=== PATIENT | male | born 1955 | race Caucasian/White ===

== ENCOUNTER 2023-02-10 10:29 | Emergency (ER) | payer MEDICARE ==
[2023-02-10 10:36] VITALS: RESP 18; TEMP 97.1
[2023-02-10] MEDS ORDERED: SODIUM CHLORIDE 0.9% 500 ML 500 ML IV STA (11:05)
[2023-02-10] MEDS ORDERED: FAMOTIDINE 20 MG/2 ML VIAL IV STA (11:06)
--- NOTE | 2023-02-10 11:10 | ED ---
General Adult HPI - General Chief complaint: ENT Stated complaint: ESOPHAGEAL ISSUES/CANNOT SWALLOW Time Seen by Provider: 02/10/23 10:51 Source: patient, RN notes reviewed Mode of arrival: ambulatory Limitations: no limitations - History of Present Illness Initial comments: 67-year-old male presents emergency Department chief complaint of difficulty sw allowing. Patient states that this is not progressive the last 2 weeks. Patient states that he was able eat some ice can but states now he's having difficulty with liquids. Patient states he does not see a current primary care physician has no known health problems. Patient states he does complain of upper abdominal pain denies any chest pain or shortness breath denies fevers or chills denies any dysuria. Patient states that he's never had any issues like this in the past he states initially started after when he got was from hot food states he drank liquids after felt fine. Patient does not remember any food getting stuck he states he occasionally does have to spit up in which it is w mono sputum like - Related Data Allergies Allergy/AdvReac Type Severity Reaction Status Date / Time No Known Allergies Allergy Verified 02/10/23 10:36 Review of Systems ROS Statement: Those systems with pertinent positive or pertinent negative responses have been documented in the HPI. ROS Other: All systems not noted in ROS Statement are negative. Past Medical History Past Medical History: No Reported History History of Any Multi-Drug Resistant Organisms: None Reported Past Surgical History: No Surgical Hx Reported Past Psychological History: No Psychological Hx Reported Smoking Status: Current every day smoker Past Alcohol Use History: Occasional Past Drug Use History: None Reported General Exam Limitations: no limitations General appearance: alert, in no apparent distress Head exam: Present: atraumatic, normocephalic, normal inspection Eye exam: Present: normal appearance, PERRL, EOMI. Absent: scleral icterus, conjunctival injection, periorbital swelling ENT exam: Present: normal exam, normal oropharynx, mucous membranes moist Neck exam: Present: normal inspection, full ROM. Absent: tenderness, meningismus, lymphadenopathy Respiratory exam: Present: normal lung sounds bilaterally. Absent: respiratory distress, wheezes, rales, rhonchi, stridor Cardiovascular Exam: Present: normal rhythm, tachycardia, normal heart sounds. Absent: systolic murmur, diastolic murmur, rubs, gallop, clicks GI/Abdominal exam: Present: soft, tenderness, normal bowel sounds. Absent: distended, guarding, rebound, rigid Back exam: Absent: CVA tenderness (R), CVA tenderness (L) Neurological exam: Present: alert Course Vital Signs 02/10/23 02/10/23 10:30 12:55 Temperature 97.1 F L Pulse Rate 109 H 87 Respiratory 18 18 Rate Blood Pressure 116/78 137/94 O2 Sat by Pulse 98 99 Oximetry - Reevaluation(s) Reevaluation #1: 02/10/23 13:45 Patient reevaluated and updated on results. Patient unable to swallow liquids currently. Patient attempted to swallow liquids, spit up immediately after Medical Decision Making - Medical Decision Making Was pt. sent in by a medical professional or institution (, PA, CAT DRIVER, urgent care, hospital, or halfway...) When possible be specific @ -No Did you speak to anyone other than the patient for history (EMS, parent, family, police, friend...)? What history was obtained from this source @ -No Did you review nursing and triage notes (agree or disagree)? Why? @ -I reviewed and agree with nursing and triage notes Were old charts reviewed (outside hosp., previous admission, EMS record, old EKG, old radiological studies, urgent care reports/EKG's, halfway records)? Report findings @ -No old charts were reviewed Differential Diagnosis (chest pain, altered mental status, abdominal pain women, abdominal pain men, vaginal bleeding, weakness, fever, dyspnea, syncope, headache, dizziness, GI bleed, back pain, seizure, CVA, palpatations, mental health, musculoskeletal)? @ -Esophagitis, esophageal cancer, esophageal food bolus, epiglottitis EKG interpreted by me (3pts min.). @ -None X-rays interpreted by me (1pt min.). @ -X-ray soft tissue neck shows possible irregularity of the epiglottis Chest x-ray shows no acute process CT interpreted by me (1pt min.). @ -CT neck, chest showing distal esophageal abnormality concerning for malignancy versus esophagitis, enlarged palatine tonsils U/S interpreted by me (1pt. min.). @ -None done What testing was considered but not performed or refused? (CT, X-rays, U/S, labs)? Why? @ -None What meds were considered but not given or refused? Why? @ -None Did you discuss the management of the patient with other professionals (professionals i.e. , PA, CAT DRIVER, lab, RT, psych nurse, social services specialist, scheduling specialist, teacher, homicide squad commanding officer, patient case coordinator)? Give summary @ -No Was smoking cessation discussed for >3mins.? @ -No Was critical care preformed (if so, how long)? @ -No Were there social determinants of health that impacted care today? How? (Homelessness, low income, unemployed, alcoholism, drug addiction, transportation, low edu. Level, literacy, decrease access to med. care, correction, rehab)? @ -No Was there de-escalation of care discussed even if they declined (Discuss DNR or withdrawal of care, Hospice)? DNR status @ -No What co-morbidities impacted this encounter? (DM, HTN, Smoking, COPD, CAD, Cancer, CVA, ARF, Chemo, Hep., AIDS, mental health diagnosis, sleep apnea, morbid obesity)? @ -Tobacco use] Was patient admitted / discharged? Hospital course, mention meds given and rout e, prescriptions, significant lab abnormalities, going to OR and other pertinent info. @ -Transferred to [facility] - [place], [place] as patient is unable to swallow liquids or eat food patient has irregularity of distal esophagus requiring GI evaluation for EGD. Undiagnosed new problem with uncertain prognosis? @ -No Drug Therapy requiring intensive monitoring for toxicity (Heparin, Nitro, Insulin, Cardizem)? @ -No Were any procedures done? @ -No Diagnosis/symptom? @ -Esophageal abnormality, esophagitis, inability to swallow Acute, or Chronic, or Acute on Chronic? @ -Acute Uncomplicated (without systemic symptoms) or Complicated (systemic symptoms)? @ -Uncomplicated Side effects of treatment? @ -No Exacerbation, Progression, or Severe Exacerbation? @ -No Poses a threat to life or bodily function? How? (Chest pain, USA, MA, pneumonia, PE, COPD, DKA, ARF, appy, cholecystitis, CVA, Diverticulitis, Homicidal, Suicidal, threat to staff... and all critical care pts) @ -No - Lab Data Result diagrams: 02/10/23 11:19 02/10/23 11:19 Lab Results 02/10/23 02/10/23 02/10/23 Range/Units 11:19 11:19 11:19 WBC 10.1 (3.8-10.6) k/uL RBC 5.80 (4.30-5.90) m/uL Hgb 18.9 H (13.0-17.5) gm/dL Hct 55.0 H (39.0-53.0) % MCV 95.0 (80.0-100.0) fL MCH 32.6 (25.0-35.0) pg MCHC 34.3 (31.0-37.0) g/dL RDW 12.9 (11.5-15.5) % Plt Count 303 (150-450) k/uL MPV 8.8 Neutrophils % 63 % Lymphocytes % 26 % Monocytes % 7 % Eosinophils % 2 % Basophils % 0 % Neutrophils # 6.4 (1.3-7.7) k/uL Lymphocytes # 2.7 (1.0-4.8) k/uL Monocytes # 0.7 (0-1.0) k/uL Eosinophils # 0.2 (0-0.7) k/uL Basophils # 0.0 (0-0.2) k/uL PT 11.0 (9.0-12.0) sec INR 1.1 (<1.2) APTT 26.7 (22.0-30.0) sec Sodium 140 (137-145) mmol/L Potassium 4.6 (3.5-5.1) mmol/L Chloride 105 (98-107) mmol/L Carbon Dioxide 23 (22-30) mmol/L Anion Gap 12 mmol/L BUN 17 (9-20) mg/dL Creatinine 0.86 (0.66-1.25) mg/dL Est GFR (CKD-EPI)AfAm >90 (>60 ml/min/1.73 sqM) Est GFR (CKD-EPI)NonAf 89 (>60 ml/min/1.73 sqM) Glucose 130 H (74-99) mg/dL Calcium 9.6 (8.4-10.2) mg/dL Magnesium 2.3 (1.6-2.3) mg/dL Total Bilirubin 0.8 (0.2-1.3) mg/dL AST 21 (17-59) U/L ALT 24 (4-49) U/L Alkaline Phosphatase 89 (38-126) U/L Total Protein 7.9 (6.3-8.2) g/dL Albumin 4.3 (3.5-5.0) g/dL Lipase 131 (23-300) U/L Disposition Clinical Impression: Inability to swallow, Esophageal abnormality Disposition: OTHER INSTITUTION NOT DEFINED Condition: Fair Referrals: Ruthann Peralta MD [Primary Care Provider] - 1-2 days Time of Disposition: 13:46 - Out of Hospital Transfer - Req. Specs Out of Hospital Transfer - Requested Specifics: Other Emergency Center ([facility] [place]
[2023-02-10 11:32] LABS: Basophils % (A) 0 %; Eosinophils # (A) 0.2 k/uL (0-0.7); Eosinophils % (A) 2 %; HGB 18.9 gm/dL (13.0-17.5); Lymphocytes # (A) 2.7 k/uL (1.0-4.8); Lymphocytes % (A) 26 %; MCH 32.6 pg (25.0-35.0); MCHC 34.3 g/dL (31.0-37.0); Mean Platelet Volume 8.8; Monocytes # (A) 0.7 k/uL (0-1.0); Monocytes % (A) 7 %; Neutrophils # (A) 6.4 k/uL (1.3-7.7); Neutrophils % (A) 63 %; Platelet Count 303 k/uL (150-450); RDW 12.9 % (11.5-15.5); WBC 10.1 k/uL (3.8-10.6)
[2023-02-10 11:41] LABS: ALT 24 U/L (4-49); AST 21 U/L (17-59); African American GFR (CKD) >90 (>60 ml/min/1.73 sqM); Albumin 4.3 g/dL (3.5-5.0); Alkaline Phosphatase 89 U/L (38-126); Anion Gap 12 mmol/L; Blood Urea Nitrogen 17 mg/dL (9-20); Calcium 9.6 mg/dL (8.4-10.2); Carbon Dioxide 23 mmol/L (22-30); Chloride 105 mmol/L (98-107); Glucose 130 mg/dL (74-99); INR 1.1 (<1.2); Lipase 131 U/L (23-300); Magnesium 2.3 mg/dL (1.6-2.3); Non-African American GFR(CKD) 89 (>60 ml/min/1.73 sqM); Partial Thromboplastin Time 26.7 sec (22.0-30.0); Potassium 4.6 mmol/L (3.5-5.1); Sodium 140 mmol/L (137-145); Total Bilirubin 0.8 mg/dL (0.2-1.3); Total Protein 7.9 g/dL (6.3-8.2)
--- NOTE | 2023-02-10 11:57 | XR ---
EXAMINATION TYPE: XR 2 views soft tissue neck, XR chest 2V DATE OF EXAM: 02/10/2023 COMPARISON: None HISTORY: 67-year-old male difficulty swallowing FINDINGS: Neck: No predental space widening or prevertebral soft tissue swelling. Slight thickened appearance t o the epiglottis is likely projectional. Correlate with direct inspection to ensure that this is due to oblique orientation. No abnormal narrowing of the subglottic airway. No airway compromise. CHEST: Heart normal size. Aorta and pulmonary vasculature within normal limits. Mild central peribronchial c uffing and interstitial prominence. No consolidation or pleural effusion. Right upper quadrant cholec ystectomy clips. IMPRESSION: 1. Neck: Thickened appearance to the epiglottis. This may be projectional due to oblique positioning. Recommend direct visualization to exclude the possibility of epiglottitis. Otherwise, no subglottic airway narrowing or other specific abnormality seen. 2. Chest: Peribronchial cuffing and interstitial prominence could reflect bronchitis or chronic asthm a. No focal infiltrate seen.
[2023-02-10] MEDS ORDERED: RX INFO: IV CONTRAST WAS GIVEN 1 EACH MISC MISCELLANE PRN (12:09)
[2023-02-10 12:57] VITALS: BP 137/94; PULSE 87
--- NOTE | 2023-02-10 13:15 | CT ---
EXAMINATION TYPE: CT neck chest w con DATE OF EXAM: 02/10/2023 12:55 PM COMPARISON: Soft tissue radiograph 02/10/2023, chest radiograph 02/10/2023 HISTORY: Difficulty swallowing, pain CT DLP: 1179.6 mGycm Automated exposure control for dose reduction was used. CONTRAST: CT scan of the neck and chest is performed following with IV Contrast, patient injected with 100 ml m L of Isovue 300. Axial images are obtained, coronal and sagittal reformatted images are reviewed. FINDINGS: Head: The brain is grossly unremarkable. Mild mucosal thickening of the right sphenoid and left maxil jaymie sinuses. Cerumen within the bilateral external auditory canals. 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 Suprahyoid Neck: The retropharyngeal space is unremarkable. Mild prominence of the bilateral palatine tonsils. Right palatine tonsil is identified. No organized fluid collection. The nasopharynx is unre markable. Epiglottis is unremarkable. Infrahyoid Neck: The larynx, hypopharynx, and supraglottic area are clear and symmetric. Parotid Glands: Unremarkable. Submandibular Glands: Unremarkable. Lymph Nodes: Multiple nonenlarged lymph nodes are identified bilaterally along the anterior and poste rior chains. Vascular Structures: Atherosclerotic calcifications identified of the arterial vasculature. Musculoskeletal: No acute osseous pathology. Degenerative changes of the cervical spine. Thyroid: Unremarkable LUNGS/ PLEURA: No pleural effusion, pneumothorax, focal consolidation. Diffuse patchy reticular opaci ties throughout the lungs. AIRWAY: Patent and unremarkable.. HEART: Size within normal limits. No pericardial effusion. MEDIASTINUM: No evidence of adenopathy. VASCULATURE: No aortic aneurysm. MUSCULOSKELETAL: No acute osseous abnormalities. Mild degenerative changes of the thoracic spine. SOFT TISSUES/LYMPH NODES: Unremarkable. LOWER NECK: No significant findings. UPPER ABDOMEN: Postcholecystectomy changes. Liver is diffusely hypoechoic. Circumferential wall thick ening with surrounding small nodules/collateral vessels involving the distal esophagus. There is some suspected nodularity/collateral vessels within the right upper quadrant however motion degrades eval uation. IMPRESSION: Motion degraded examination. 1. Mild prominence of the bilateral palatine tonsils which could be seen with acute tonsillitis. No o rganized fluid collection. Epiglottis is within normal limits. 2. Diffuse patchy reticular opacities throughout the lungs which could be seen with atypical pneumoni a versus pulmonary edema in the appropriate clinical setting. 3. Circumferential wall thickening of the distal esophagus with small surrounding nodularity/collater al vessels. This may related to reflux/esophagitis however malignancy is not excluded. Consider furth er evaluation with direct visualization. 4. Hepatic steatosis. 5. Suspected nodularity/collateral vessels within the right upper quadrant however the examination is motion degraded. Consider further evaluation with CT abdomen pelvis.
[2023-02-10] MEDS ORDERED: PANTOPRAZOLE 40 MG/10 ML VIAL IVP STA (13:48)
== END 2023-02-10 14:50 | disposition other institution (70) ==
LOC: EC 10:29
DX: R13.10 Dysphagia, unspecified (principal); Q39.9 Congenital malformation of esophagus, unspecified; F17.200 Nicotine dependence, unspecified, uncomplicated
CPT/HCPCS: 36415; 80053; 83690; 83735; 85025; 85610; 85730; 70360; 71046; 70491; 71260; 99285; 96374; 96375; 96361; J3490; C9113; Q9967

== ENCOUNTER 2023-04-16 13:43 | Inpatient (IN) | payer MEDICARE ==
--- NOTE | 2023-04-16 14:24 | ED ---
Abdominal Pain HPI - General Chief Complaint: Abdominal Pain Stated Complaint: weakness, nausea Time Seen by Provider: 04/16/23 14:22 Source: patient, RN notes reviewed, old records reviewed Mode of arrival: ambulatory Limitations: no limitations - History of Present Illness Initial Comments: This is a 67-year-old male to the emergency department of chronic pain and cancer pain for evaluation he. States patient presents for evaluation regards to abdominal pain chest pain neck pain back pain nausea weakness and pain. Patient has oncological pain cancer pain states the pain is out of control, severe pain currently. No fevers cough congestion or other complaints MD Complaint: abdominal pain, other (Chest pain) -: days(s) Location: epigastric Radiation: epigastric Migration to: epigastric Severity: severe Severity scale (1-10): 10 Quality: cramping, aching Consistency: constant Improves With: nothing Worsens With: nothing Associated Symptoms: nausea, vomiting Treatments Prior to Arrival: other (0) - Related Data Home Medications Medication Instructions Recorded Confirmed ALPRAZolam [Xanax] 0.5 mg PO HS PRN 04/16/23 04/16/23 Chemo Infusion (Unknown) 1 dose IV Q14D 04/16/23 04/16/23 HYDROcodone/APAP 5-325MG [[place] 1 tab PEG/G-TUBE Q6H PRN 04/16/23 04/16/23 5-325] Lactulose [Constulose] 20 gm PO BID PRN 04/16/23 04/16/23 Lidocaine Viscous [Xylocaine 15 ml PO AC-TID PRN 04/16/23 04/16/23 Viscous 2%] Metoclopramide [Reglan] 10 mg PO ACHS 04/16/23 04/16/23 Morphine Sulfate [Morphine Sulfate 60 mg PO Q12H 04/16/23 04/16/23 ER] oxyCODONE HCL [oxyCODONE HCL (IR)] 10 mg PO Q4H PRN 04/16/23 04/16/23 Allergies Allergy/AdvReac Type Severity Reaction Status Date / Time No Known Allergies Allergy Verified 04/16/23 17:50 Review of Systems ROS Statement: Those systems with pertinent positive or pertinent negative responses have been documented in the HPI. ROS Other: All systems not noted in ROS Statement are negative. 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 Absent: scleral icterus, conjunctival injection, periorbital swelling ENT exam: Present: normal exam, mucous membranes moist Neck exam: Present: normal inspection. Absent: tenderness, meningismus, lymphadenopathy Respiratory exam: Present: normal lung sounds bilaterally. Absent: respiratory distress, wheezes, rales, rhonchi, stridor Cardiovascular Exam: Present: regular rate, normal rhythm, normal heart sounds. Absent: systolic murmur, diastolic murmur, rubs, gallop, clicks GI/Abdominal exam: Present: soft, normal bowel sounds. Absent: distended, tenderness, guarding, rebound, rigid Extremities exam: Present: normal inspection, full ROM, normal capillary refill. Absent: tenderness, pedal edema, joint swelling, calf tenderness Back exam: Present: normal inspection Neurological exam: Present: alert, oriented X3, CN II-XII intact Psychiatric exam: Present: normal affect, normal mood Skin exam: Present: warm, dry, intact, normal color. Absent: rash Course Vital Signs 04/16/23 04/16/23 04/16/23 14:04 14:20 14:30 Temperature 97.9 F Pulse Rate 93 79 Respiratory 18 15 15 Rate Blood Pressure 118/87 114/81 O2 Sat by Pulse 98 92 L 96 Oximetry 04/16/23 04/16/23 04/16/23 14:45 15:00 15:15 Temperature Pulse Rate 80 76 78 Respiratory 13 17 14 Rate Blood Pressure 114/81 114/81 119/77 O2 Sat by Pulse 97 98 Oximetry 04/16/23 04/16/23 04/16/23 15:30 16:00 16:15 Temperature Pulse Rate 84 82 72 Respiratory 13 17 12 Rate Blood Pressure 118/82 111/83 119/82 O2 Sat by Pulse 95 Oximetry 04/16/23 16:30 Temperature Pulse Rate 70 Respiratory 21 Rate Blood Pressure 123/95 O2 Sat by Pulse 94 L Oximetry - Reevaluation(s) Reevaluation #1: 04/16/23 21:18 Medical record is reviewed Reevaluation #2: 04/16/23 21:18 Patient's pain is only mildly improved Reevaluation #3: 04/16/23 21:18 Patient informed results questions answered Reevaluation #4: 04/16/23 17:12 Was pt. sent in by a medical professional or institution (SEBASTIAN Torres, [employer]PSC[employer] SEC[employer]ITY OFFICER, urgent care, hospital, or usp...) When possible be specific @ -no Did you speak to anyone other than the patient for history (EMS, parent, family, police, friend...)? What history was obtained from this source @ -no Did you review nursing and triage notes (agree or disagree)? Why? @ -agree Are old charts reviewed (outside hosp., previous admission, EMS record, old EKG, old radiological studies, urgent care reports/EKG's, usp records)? Report findings @ -yes Differential Diagnosis (chest pain, altered mental status, abdominal pain women, abdominal pain men, vaginal bleeding, weakness, fever, dyspnea, syncope, headache, dizziness, GI bleed, back pain, seizure, CVA, palpatations, mental health, musculoskeletal)? @ -prior EKG interpreted by me (3pts min.). @ -yes X-rays interpreted by me (1pt min.). @ -yes CT interpreted by me (1pt min.). @ -no U/S interpreted by me (1pt. min.). @ -no What testing was considered but not performed or refused? (CT, X-rays, U/S, labs)? Why? @ -none What meds were considered but not given or refused? Why? @ -none Did you discuss the management of the patient with other professionals (professionals i.e. SEBASTIAN Torres, [employer] SECURITY OFFICER, lab, RT, psych nurse, adoption social worker, flatwork tier, teacher, maritime officer, pillowcase cleaner)? Give summary @ -no Was smoking cessation discussed for >3mins.? @ -no Was critical care preformed (if so, how long)? @ -no Were there social determinants of health that impacted care today? How? (Homel essness, low income, unemployed, alcoholism, drug addiction, transportation, low edu. Level, literacy, decrease access to med. care, penitentiary, rehab)? @ -none Was there de-escalation of care discussed even if they declined (Discuss DNR or withdrawal of care, Hospice)? DNR status @ -no What co-morbidities impacted this encounter? (DM, HTN, Smoking, COPD, CAD, Cancer, CVA, ARF, Chemo, Hep., AIDS, mental health diagnosis, sleep apnea, morbid obesity)? @ -none Was patient admitted / discharged? Hospital course, mention meds given and route, prescriptions, significant lab abnormalities, going to OR and other pertinent info. @ - 67 male to the admitted for cancer pain and pain control Admitted Undiagnosed new problem with uncertain prognosis? @ -no Drug Therapy requiring intensive monitoring for toxicity (Heparin, Nitro, Insulin, Cardizem)? @ -no Were any procedures done? @ -no Diagnosis/symptom? @ -Cancer pain, abdominal pain Acute, or Chronic, or Acute on Chronic? @ -Acute Uncomplicated (without systemic symptoms) or Complicated (systemic symptoms)? @ -Complicated Side effects of treatment? @ -no Exacerbation, Progression, or Severe Exacerbation? @ -exacerbation Poses a threat to life or bodily function? How? (Chest pain, [place], VT, pneumonia, PE, COPD, DKA, ARF, appy, cholecystitis, CVA, Diverticulitis, Homicidal, Suicidal, threat to staff... and all critical care pts) @ -yes with significant oncological history - Consultations Consultation #1: Spoke with [facility] were agrees to admit this patient Medical Decision Making - Medical Decision Making 67 male to the admitted for cancer pain and pain control - Lab Data Result diagrams: 04/20/23 07:04 04/19/23 07:30 Lab Results 04/16/23 04/16/23 04/16/23 Range/Units 14:23 15:04 15:04 WBC 4.5 (3.8-10.6) k/uL RBC 4.63 (4.30-5.90) m/uL Hgb 14.2 D (13.0-17.5) gm/dL Hct 44.1 (39.0-53.0) % MCV 95.2 (80.0-100.0) fL MCH 30.7 (25.0-35.0) pg MCHC 32.2 (31.0-37.0) g/dL RDW 13.8 (11.5-15.5) % Plt Count 227 (150-450) k/uL MPV 10.6 Neutrophils % 72 % Lymphocytes % 22 % Monocytes % 3 % Eosinophils % 2 % Basophils % 0 % Neutrophils # 3.3 (1.3-7.7) k/uL Lymphocytes # 1.0 (1.0-4.8) k/uL Monocytes # 0.1 (0-1.0) k/uL Eosinophils # 0.1 (0-0.7) k/uL Basophils # 0.0 (0-0.2) k/uL Hypochromasia Slight PT 12.7 H (10.0-12.5) sec INR 1.2 H (<1.2) APTT 27.8 (22.0-30.0) sec Sodium (137-145) mmol/L Potassium (3.5-5.1) mmol/L Chloride (98-107) mmol/L Carbon Dioxide (22-30) mmol/L Anion Gap mmol/L BUN (9-20) mg/dL Creatinine (0.66-1.25) mg/dL Est GFR (CKD-EPI) (>=60) Est GFR (CKD-EPI)AfAm (>60 ml/min/1.73 sqM) Est GFR (CKD-EPI)NonAf (>60 ml/min/1.73 sqM) BUN/Creatinine Ratio (12.00-20.00) Ratio Glucose (74-99) mg/dL Calcium (8.4-10.2) mg/dL Phosphorus (2.5-4.5) mg/dL Magnesium (1.6-2.3) mg/dL Total Bilirubin (0.2-1.3) mg/dL AST (17-59) U/L ALT (4-49) U/L Alkaline Phosphatase (38-126) U/L Troponin I 0.017 (0.000-0.034) ng/mL NT-Pro-B Natriuret Pep pg/mL Total Protein (6.3-8.2) g/dL Albumin (3.5-5.0) g/dL Globulin g/dL Albumin/Globulin Ratio 04/16/23 04/17/23 04/18/23 Range/Units 15:04 06:32 06:26 WBC 4.4 (3.8-10.6) k/uL RBC 4.14 L (4.30-5.90) m/uL Hgb 13.0 (13.0-17.5) gm/dL Hct 39.4 (39.0-53.0) % MCV 95.1 (80.0-100.0) fL MCH 31.4 (25.0-35.0) pg MCHC 33.0 (31.0-37.0) g/dL RDW 14.0 (11.5-15.5) % Plt Count 211 (150-450) k/uL MPV 11.0 Neutrophils % 52 % Lymphocytes % 38 % Monocytes % 4 % Eosinophils % 3 % Basophils % 0 % Neutrophils # 2.3 (1.3-7.7) k/uL Lymphocytes # 1.7 (1.0-4.8) k/uL Monocytes # 0.2 (0-1.0) k/uL Eosinophils # 0.1 (0-0.7) k/uL Basophils # 0.0 (0-0.2) k/uL Hypochromasia Slight PT (10.0-12.5) sec INR (<1.2) APTT (22.0-30.0) sec Sodium 143 142 (137-145) mmol/L Potassium 5.2 H 3.8 (3.5-5.1) mmol/L Chloride 105 107 (98-107) mmol/L Carbon Dioxide 30 27 (22-30) mmol/L Anion Gap 8 8 mmol/L BUN 14 13 (9-20) mg/dL Creatinine 0.57 L 0.54 L (0.66-1.25) mg/dL Est GFR (CKD-EPI) (>=60) Est GFR (CKD-EPI)AfAm >90 >90 (>60 ml/min/1.73 sqM) Est GFR (CKD-EPI)NonAf >90 >90 (>60 ml/min/1.73 sqM) BUN/Creatinine Ratio (12.00-20.00) Ratio Glucose 97 118 H (74-99) mg/dL Calcium 8.8 8.4 (8.4-10.2) mg/dL Phosphorus 3.6 (2.5-4.5) mg/dL Magnesium 2.3 (1.6-2.3) mg/dL Total Bilirubin 0.8 0.7 (0.2-1.3) mg/dL AST 40 30 (17-59) U/L ALT 31 27 (4-49) U/L Alkaline Phosphatase 78 78 (38-126) U/L Troponin I (0.000-0.034) ng/mL NT-Pro-B Natriuret Pep 101 pg/mL Total Protein 6.6 6.1 L (6.3-8.2) g/dL Albumin 3.3 L 3.0 L (3.5-5.0) g/dL Globulin 3.1 g/dL Albumin/Globulin Ratio 1.0 04/18/23 04/19/23 Range/Units 06:26 07:30 WBC (3.8-10.6) k/uL RBC (4.30-5.90) m/uL Hgb (13.0-17.5) gm/dL Hct (39.0-53.0) % MCV (80.0-100.0) fL MCH (25.0-35.0) pg MCHC (31.0-37.0) g/dL RDW (11.5-15.5) % Plt Count (150-450) k/uL MPV Neutrophils % % Lymphocytes % % Monocytes % % Eosinophils % % Basophils % % Neutrophils # (1.3-7.7) k/uL Lymphocytes # (1.0-4.8) k/uL Monocytes # (0-1.0) k/uL Eosinophils # (0-0.7) k/uL Basophils # (0-0.2) k/uL Hypochromasia PT (10.0-12.5) sec INR (<1.2) APTT (22.0-30.0) sec Sodium 139 142 (137-145) mmol/L Potassium 3.6 3.6 (3.5-5.1) mmol/L Chloride 104 104 (98-107) mmol/L Carbon Dioxide 28 27.2 (22-30) mmol/L Anion Gap 7 10.80 mmol/L BUN 9 6.1 L (9-20) mg/dL Creatinine 0.62 L 0.5 L (0.66-1.25) mg/dL Est GFR (CKD-EPI) 111 (>=60) Est GFR (CKD-EPI)AfAm >90 (>60 ml/min/1.73 sqM) Est GFR (CKD-EPI)NonAf >90 (>60 ml/min/1.73 sqM) BUN/Creatinine Ratio 12.20 (12.00-20.00) Ratio Glucose 90 92 (74-99) mg/dL Calcium 8.1 L 8.3 L (8.4-10.2) mg/dL Phosphorus (2.5-4.5) mg/dL Magnesium (1.6-2.3) mg/dL Total Bilirubin (0.2-1.3) mg/dL AST (17-59) U/L ALT (4-49) U/L Alkaline Phosphatase (38-126) U/L Troponin I (0.000-0.034) ng/mL NT-Pro-B Natriuret Pep pg/mL Total Protein (6.3-8.2) g/dL Albumin (3.5-5.0) g/dL Globulin g/dL Albumin/Globulin Ratio - EKG Data -: EKG Interpreted by Me (EKG is sinus 91 NE 120 QRS 102 QTC 404) - Radiology Data Radiology results: report reviewed (X-ray chest and KUB are negative for traumatic or acute disease), image reviewed Disposition Clinical Impression: Cancer associated pain, Pain Disposition: ADMITTED IP TO THIS HOSP Condition: Good Is patient prescribed a controlled substance at d/c from ED?: No Time of Disposition: 17:10
[2023-04-16] MEDS ORDERED: SODIUM CHLORIDE 0.9% 500 ML 500 ML IV STA (14:40)
[2023-04-16 15:29] LABS: Basophils % (A) 0 %; Eosinophils # (A) 0.1 k/uL (0-0.7); Eosinophils % (A) 2 %; HCT 44.1 % (39.0-53.0); Hypochromasia Slight; Lymphocytes % (A) 22 %; MCH 30.7 pg (25.0-35.0); MCHC 32.2 g/dL (31.0-37.0); MCV 95.2 fL (80.0-100.0); Mean Platelet Volume 10.6; Monocytes # (A) 0.1 k/uL (0-1.0); Monocytes % (A) 3 %; Neutrophils # (A) 3.3 k/uL (1.3-7.7); Neutrophils % (A) 72 %; Platelet Count 227 k/uL (150-450); RBC 4.63 m/uL (4.30-5.90); RDW 13.8 % (11.5-15.5); WBC 4.5 k/uL (3.8-10.6)
[2023-04-16] MEDS ORDERED: HYDROmorphone 1 MG/ML 1 ML SYRINGE IVP STA (15:31)
[2023-04-16 15:33] LABS: ALT 31 U/L (4-49); AST 40 U/L (17-59); African American GFR (CKD) >90 (>60 ml/min/1.73 sqM); Albumin 3.3 g/dL (3.5-5.0); Alkaline Phosphatase 78 U/L (38-126); Anion Gap 8 mmol/L; Blood Urea Nitrogen 14 mg/dL (9-20); Calcium 8.8 mg/dL (8.4-10.2); Carbon Dioxide 30 mmol/L (22-30); Chloride 105 mmol/L (98-107); Glucose 97 mg/dL (74-99); HGB 14.2 gm/dL (13.0-17.5); Magnesium 2.3 mg/dL (1.6-2.3); Non-African American GFR(CKD) >90 (>60 ml/min/1.73 sqM); Phosphorus 3.6 mg/dL (2.5-4.5); Potassium 5.2 mmol/L (3.5-5.1); Sodium 143 mmol/L (137-145); Total Bilirubin 0.8 mg/dL (0.2-1.3); Total Protein 6.6 g/dL (6.3-8.2)
[2023-04-16 15:37] LABS: INR 1.2 (<1.2); Partial Thromboplastin Time 27.8 sec (22.0-30.0); Prothrombin Time 12.7 sec (10.0-12.5)
[2023-04-16 15:41] LABS: NT-Pro-B-Type Natriuretic Pept 101 pg/mL
--- NOTE | 2023-04-16 16:03 | XR ---
EXAMINATION TYPE: XR chest 1V DATE OF EXAM: 04/16/2023 COMPARISON: 02/10/2023 HISTORY: 67-year-old male upper abdominal pain TECHNIQUE: Single frontal view of the chest is obtained. FINDINGS: Heart borderline in size. Right anterior chest wall injection port with catheter tip at th e upper mid SVC level. Interstitial prominence has a chronic appearance. No consolidation or pleural effusion. IMPRESSION: Borderline heart size. Chronic appearing changes. No definite acute process.
--- NOTE | 2023-04-16 16:04 | XR ---
EXAMINATION TYPE: XR KUB DATE OF EXAM: 04/16/2023 Comparison: None Clinical History: 67-year-old male pain Findings: Cholecystectomy clips. Only a single image centered at the upper abdomen is provided. There is modera te stool burden. No dilated small bowel or evidence of free intraperitoneal air. Impression: The single provided image is centered at the upper abdomen. The remainder of the abdomen/pelvis is no t assessed. There is moderate stool burden. Overall nonobstructive bowel gas pattern. No free air see n. Status post cholecystectomy.
[2023-04-16] MEDS ORDERED: NALOXONE 0.4 MG/ML 1 ML VIAL IV PRN (17:08)
[2023-04-16] MEDS ORDERED: SODIUM CHLORIDE 0.9% 1,000 ML IV SCH (17:15)
[2023-04-16] MEDS ORDERED: LACTULOSE 20 GM/30 ML CUP PO PRN (21:36)
[2023-04-16] MEDS ORDERED: LIDOCAINE 2% GLYDO JELLY 11 ML APPL PO PRN (21:36)
[2023-04-16] MEDS ORDERED: MORPHINE SULFATE ER 60 MG TABLET PO SCH (21:45)
[2023-04-16] MEDS: HYDROmorphone 1 MG/ML 1 ML SYRINGE IVP PRN (21:59)
[2023-04-16] MEDS: ONDANSETRON 4 MG/2 ML VIAL IVP PRN (22:02)
[2023-04-16] MEDS ORDERED: MORPHINE SULFATE ER 30 MG TABLET PO SCH (23:09)
[2023-04-16] MEDS: SENNOSIDES 8.6 MG TAB PO SCH (23:33)
[2023-04-16] MEDS: DEXTROSE 5%-0.45% NACL 1,000 ML IV SCH (23:34)
--- NOTE | 2023-04-16 23:34 | P.HPIM ---
History of Present Illness H&P Date: 04/16/23 Chief Complaint: Generalized pain Patient is a 67-year-old male with a past medical history of esophageal cancer diagnosed in January 2023 currently undergoing radiation and prior history of smoking presents to ER with complaints of worsening pain. Patient is complaining of generalized pain, abdominal pain, chest pain and back pain and generalized weakness. Patient is having poorly intake and is only taking liquids. Patient states that he had radiation done yesterday and is scheduled for again on Wednesday. Presented to ER due to worsening cancer related pain. No complaints of fever or chills. No cough or sputum production. No headache or dizziness or lightheadedness. Denies any dysuria. Chest x-ray showed borderline heart size. Chronic appearing changes. No definite acute process. KUB x-ray showed the single provided MAC center at the upper abdomen. The r emainder of the abdominal pelvis is not exacerbated there is moderate stool burden. Overall nonobstructive bowel gas pattern. No free air is seen. Status postcholecystectomy. Laboratory showed WBC 4.5 hemoglobin 14.1 platelets 227 Sodium 143 potassium 5.3 chloride 105 bicarb is 30 BUN 14 and creatinine 0.57, troponin x1 negative proBNP 101 and albumin 3.3. Liver enzymes are not elevated. Review of Systems Constitutional: Patient denies any fever or chills . Patient does have generalized pain fatigue and weakness. Abdomen: Patient does have nausea and abdominal pain. No vomiting no diarrhea. Patient does have constipation. Cardiovascular: Patient complains of chest pain. Short of breath no palpitations. No leg swelling. Respiratory: patient denied any cough . no sputum production. No shortness of breath Neurologic: Patient denied any numbness or tingling headache. Musculoskeletal: Patient denies any complaints of joint swelling or deformity. Skin: Negative Psychiatric: Negative Endocrine: No heat or cold intolerance. No recent weight gain. Genitourinary: No dysuria or hematuria. All other 14 point ROS negative except the above Past Medical History Past Medical History: No Reported History, Cancer Additional Past Medical History / Comment(s): esophogeal cancer 01/2023 History of Any Multi-Drug Resistant Organisms: None Reported Past Surgical History: No Surgical Hx Reported, Appendectomy Past Psychological History: No Psychological Hx Reported Smoking Status: Former smoker Past Alcohol Use History: None Reported, Occasional Past Drug Use History: None Reported Medications and Allergies Home Medications Medication Instructions Recorded Confirmed Type ALPRAZolam [Xanax] 0.5 mg PO HS PRN 04/16/23 04/16/23 History HYDROcodone/APAP 5-325MG [[place] 1 tab PEG/G-TUBE Q6H PRN 04/16/23 04/16/23 History 5-325] Lactulose [Constulose] 20 gm PO BID PRN 04/16/23 04/16/23 History Lidocaine Viscous [Xylocaine 15 ml PO AC-TID PRN 04/16/23 04/16/23 History Viscous 2%] Metoclopramide [Reglan] 10 mg PO ACHS 04/16/23 04/16/23 History Morphine Sulfate [Morphine Sulfate 60 mg PO Q12H 04/16/23 04/16/23 History ER] oxyCODONE HCL [oxyCODONE HCL (IR)] 10 mg PO Q4H PRN 04/16/23 04/16/23 History Sennosides [Senokot] 8.6 mg PO BID tab 04/28/23 Rx polyethylene glycoL 3350 [Miralax] 17 gm PO DAILY packet 04/28/23 Rx Allergies Allergy/AdvReac Type Severity Reaction Status Date / Time No Known Allergies Allergy Verified 04/16/23 17:50 Physical Exam Vitals: Vital Signs Temp Pulse Resp BP Pulse Ox 04/16/23 16:30 70 21 123/95 94 L 04/16/23 16:15 72 12 119/82 04/16/23 16:00 82 17 111/83 95 04/16/23 15:30 84 13 118/82 04/16/23 15:15 78 14 119/77 04/16/23 15:00 76 17 114/81 98 04/16/23 14:45 80 13 114/81 97 04/16/23 14:30 79 15 114/81 96 04/16/23 14:20 15 92 L 04/16/23 14:04 97.9 F 93 18 118/87 98 Intake and Output 04/16/23 04/16/23 04/16/23 06:59 14:59 22:59 Other: Weight 77.111 kg PHYSICAL EXAMINATION: Patient is lying in the bed. He appears to be in distress due to pain., awake alert and oriented.. HEENT: Normocephalic. Neck is supple. Pupils reactive. Nostrils clear. Oral cavity is moist. Neck reveals no JVD, carotid bruits, or thyromegaly. CHEST EXAMINATION: Trachea is central. Symmetrical expansion. Lung murray clear to auscultation and percussion. CARDIAC: Normal S1, S2 with no gallops. No murmurs ABDOMEN: Soft. Bowel sounds present. Abdominal is distended.. Epigastric tenderness. No guarding or rigidity. No organomegaly. No abdominal bruits. Extremities: reveal no edema. No clubbing or cyanosis Neurologically awake, alert, oriented x3 with well-coordinated movements. No focal deficits noted Skin: No rash or skin lesions. Psychiatric: Coperative. Nonsuicidal, Musculoskeletal: No joint swelling or deformity. Results CBC & Chem 7: 04/26/23 06:39 04/26/23 06:39 Labs: Abnormal Lab Results - Last 24 Hours (Table) 04/16/23 04/16/23 Range/Units 15:04 15:04 PT 12.7 H (10.0-12.5) sec INR 1.2 H (<1.2) Potassium 5.2 H (3.5-5.1) mmol/L Creatinine 0.57 L (0.66-1.25) mg/dL Albumin 3.3 L (3.5-5.0) g/dL Thrombosis Risk Factor Assmnt - DVT/VTE Prophylaxis DVT/VTE Prophylaxis: Pharmacologic Prophylaxis ordered Assessment and Plan Assessment: Worsening malignancy related pain PEG tube malfunctioning Esophageal cancer diagnosed in January 2023. Currently undergoing radiation ther apy. Mild hyperkalemia Constipation and moderate stool burden as per abdominal x-ray Moderate to severe protein calorie malnutrition. History of smoking DVT prophylaxis Lovenox subcu Plan: Patient will be continued on IV hydration with D5 half-normal saline. Continue with IV Dilaudid 1 mg every 3 as needed for pain and also continue with long- acting morphine 60 mg twice daily. Started on stool softeners and bowel regimen. Follow-up CBC and BMP tomorrow. Symptomatic management for nausea and follow-up closely. Time with Patient: Greater than 30
[2023-04-17] MEDS: HYDROmorphone 1 MG/ML 1 ML SYRINGE IVP PRN ×2 (05:56→14:40)
[2023-04-17 07:08] LABS: ALT 27 U/L (4-49); AST 30 U/L (17-59); African American GFR (CKD) >90 (>60 ml/min/1.73 sqM); Alkaline Phosphatase 78 U/L (38-126); Anion Gap 8 mmol/L; Blood Urea Nitrogen 13 mg/dL (9-20); Calcium 8.4 mg/dL (8.4-10.2); Carbon Dioxide 27 mmol/L (22-30); Chloride 107 mmol/L (98-107); Globulin 3.1 g/dL; Glucose 118 mg/dL (74-99); Non-African American GFR(CKD) >90 (>60 ml/min/1.73 sqM); Potassium 3.8 mmol/L (3.5-5.1); Sodium 142 mmol/L (137-145); Total Bilirubin 0.7 mg/dL (0.2-1.3); Total Protein 6.1 g/dL (6.3-8.2)
[2023-04-17] MEDS ORDERED: ENOXAPARIN 30 MG/0.3 ML SYRINGE SQ SCH (09:00)
[2023-04-17] MEDS: polyethylene glycoL 3350 17 GM POWD.PACK PO SCH (10:12)
[2023-04-17] MEDS: METOCLOPRAMIDE 10 MG TAB PO SCH ×4 (10:12→20:21)
[2023-04-17] MEDS: MORPHINE SULFATE ER 30 MG TABLET PO SCH ×2 (10:12→20:21)
[2023-04-17] MEDS: SENNOSIDES 8.6 MG TAB PO SCH ×2 (10:12→20:21)
[2023-04-17] MEDS: DEXTROSE 5%-0.45% NACL 1,000 ML IV SCH (13:10)
--- NOTE | 2023-04-17 14:36 | P.CONS ---
History of Present Illness - Reason for Consult Consult date: 04/17/23 Metastatic esophageal cancer, abdominal distention and pain - History of Present Illness The patient is a 67-year-old white male, with a diagnosis of esophageal cancer, made about 2-3 months ago. The patient's PET scan showed metastasis to the paraesophageal lymph nodes, as well as evidence of widespread peritoneal in volvement. The patient is being treated at [facility]. He has been started on FOLFOX and Opdivo, and is status post 3 cycles, with pump removal after cycle #3 on 04/15/23. The patient has NOT seen any palliative radiation. This was confirmed with his son. The patient has been unable to swallow because of the malignancy, and has a PEG tube in situ. However tolerance of PEG feeds has been very poor, with the patient only able to tolerate limited amounts at a time. He has had ongoing problems with abdominal pain and distention as well as retention in the stomach. He has not had bowel movements for about 2-3 weeks. He did have a bowel movement soon after this admission. The patient was admitted because of development of significant abdominal distention, generalized abdominal pain with radiation up into the shoulders and towards the flank and lower back. This occurred over the last 2-3 days. He has not had overt vomiting. Review of Systems Constitutional: Reports poor appetite, Reports weakness, Reports weight loss Eyes: denies blurred vision, denies pain Ears: deny: decreased hearing, ear discharge, earache, tinnitus Ears, nose, mouth and throat: Denies headache, Denies sore throat Cardiovascular: Reports decreased exercise tolerance Respiratory: Denies cough Gastrointestinal: Reports abdominal pain, Reports bloating, Reports constipation, Reports early satiety, Reports excessive gas, Reports nausea Genitourinary: Reports as per HPI Musculoskeletal: Reports muscle weakness Integumentary: Denies pruritus, Denies rash Neurological: Reports weakness, Denies numbness Psychiatric: Reports anxiety Endocrine: Reports fatigue, Reports weight change Hematologic/Lymphatic: Reports as per HPI Past Medical History Past Medical History: No Reported History, Cancer Additional Past Medical History / Comment(s): esophogeal cancer 01/2023 History of Any Multi-Drug Resistant Organisms: None Reported Past Surgical History: No Surgical Hx Reported, Appendectomy Additional Past Surgical History / Comment(s): PEG tube placement Past Psychological History: No Psychological Hx Reported Smoking Status: Former smoker Past Alcohol Use History: None Reported, Occasional Past Drug Use History: None Reported Medications and Allergies Home Medications Medication Instructions Recorded Confirmed Type ALPRAZolam [Xanax] 0.5 mg PO HS PRN 04/16/23 04/16/23 History Chemo Infusion (Unknown) 1 dose IV Q14D 04/16/23 04/16/23 History HYDROcodone/APAP 5-325MG [[place] 1 tab PEG/G-TUBE Q6H PRN 04/16/23 04/16/23 History 5-325] Lactulose [Constulose] 20 gm PO BID PRN 04/16/23 04/16/23 History Lidocaine Viscous [Xylocaine 15 ml PO AC-TID PRN 04/16/23 04/16/23 History Viscous 2%] Metoclopramide [Reglan] 10 mg PO ACHS 04/16/23 04/16/23 History Morphine Sulfate [Morphine Sulfate 60 mg PO Q12H 04/16/23 04/16/23 History ER] oxyCODONE HCL [oxyCODONE HCL (IR)] 10 mg PO Q4H PRN 04/16/23 04/16/23 History Allergies Allergy/AdvReac Type Severity Reaction Status Date / Time No Known Allergies Allergy Verified 04/16/23 17:50 Physical Exam Vitals: Vital Signs Temp Pulse Pulse Resp BP BP Pulse Ox 04/17/23 07:21 98.9 F 71 16 110/69 95 04/17/23 02:40 98.3 F 88 16 107/71 96 04/16/23 23:00 16 04/16/23 22:05 98.3 F 81 18 112/75 93 L 04/16/23 16:30 70 21 123/95 94 L 04/16/23 16:15 72 12 119/82 04/16/23 16:00 82 17 111/83 95 04/16/23 15:30 84 13 118/82 04/16/23 15:15 78 14 119/77 04/16/23 15:00 76 17 114/81 98 04/16/23 14:45 80 13 114/81 97 04/16/23 14:30 79 15 114/81 96 Intake and Output 04/16/23 04/17/23 04/17/23 22:59 06:59 14:59 Intake Total 1000 Balance 1000 Intake: Intake, IV Titration 700 Amount Dextrose 5%-0.45% NaCl 1, 700 000 ml @ 75 mls/hr IV . [id number] [facility] Rx#:[id number] Oral 300 Other: Voiding Method Toilet Toilet Diaper Diaper # Voids 3 # Bowel Movements 2 Weight 77.111 kg 77.111 kg - Constitutional General appearance: no acute distress - EENT Eyes: EOMI, PERRLA ENT: hearing grossly normal, normal oropharynx - Neck Neck: no lymphadenopathy Thyroid: bilateral: normal size - Respiratory Respiratory: bilateral: CTA - Cardiovascular Rhythm: regular Heart sounds: normal: S1, S2 - Gastrointestinal PEG tube in situ. PEG insertion site clean. Possible free fluid on exam General gastrointestinal: decreased bowel sounds, distended - Integumentary Integumentary: normal - Neurologic Neurologic: CNII-XII intact - Musculoskeletal Musculoskeletal: generalized weakness, strength equal bilaterally - Psychiatric The patient was a very poor historian, and appeared to be very vague and noted about the details of his diagnosis and medical treatment. Discussed with his son, who states that this is normal for him, as he does not want to deal with these Situations. The son is his POA. Psychiatric: A&O x's 3 Results CBC & Chem 7: 04/16/23 15:04 04/17/23 06:32 Labs: Abnormal Lab Results - Last 24 Hours (Table) 04/16/23 04/16/23 04/17/23 Range/Units 15:04 15:04 06:32 PT 12.7 H (10.0-12.5) sec INR 1.2 H (<1.2) Potassium 5.2 H (3.5-5.1) mmol/L Creatinine 0.57 L 0.54 L (0.66-1.25) mg/dL Glucose 118 H (74-99) mg/dL Total Protein 6.1 L (6.3-8.2) g/dL Albumin 3.3 L 3.0 L (3.5-5.0) g/dL Abdominal x-ray: report reviewed Assessment and Plan (1) Cancer associated pain Narrative/Plan: The pt is presenting with diffuse abdominal pain associated with distention, early satiety and poor tolerance of PEG feeds. Physical exam findings as noted. The PET scan was also reviewed, and the case discussed with his son. Given the above, there is concern that the patient may have a generalized ileus that condition because of peritoneal carcinomatosis. There is also possibility of ascites on examination. - Case discussed with nursing. They were all stool hold off on initiating tube feeds. A CT of the abdomen will be checked with contrast. I will also consult surgery. If there is significant ascites then paracentesis will be ordered. If major ileus/obstruction can be ruled out, and the patient may do better with a lower volume tube feeds and Reglan. Current Visit: Yes Status: Acute Code(s): G89.3 - NEOPLASM RELATED PAIN (ACUTE) (CHRONIC) SNOMED Code(s): 38788243748659 (2) Esophageal cancer, stage IV Narrative/Plan: Diagnostic and therapeutic circumstances as described. The patient's son states that there in the process of changing over to his treatment our practice, due to convenience issues. - Monitor for cytopenias due to recent chemotherapy Current Visit: Yes Status: Acute Code(s): C15.9 - MALIGNANT NEOPLASM OF ESOPHAGUS, UNSPECIFIED SNOMED Code(s): 894339299
[2023-04-17] MEDS: IOPAMIDOL CONTRAST (ORAL USE) VIAL PO PRN ×2 (15:41→16:45)
--- NOTE | 2023-04-17 18:11 | CT ---
EXAMINATION TYPE: CT abdomen pelvis w con CT DLP: 1622.7 mGycm, Automated exposure control for dose reduction was used. DATE OF EXAM: 04/17/2023 6:01 PM COMPARISON: CT abdomen pelvis most recent from 02/10/2023. CLINICAL INDICATION:Male, 67 years old with history of Abdominal pain, acute nonlocalized, distention ; abdominal pain, distention TECHNIQUE: Axial CT of the ;CT abdomen pelvis w con;Sagittal and coronal reformats were created on a separate workstation. Contrast used:100 mL of Isovue 300 with IV Contrast, (none if empty) Oral contrast used: with Oral Contrast (none if empty) FINDINGS: LOWER CHEST: Trace left pleural effusion. Heart is mildly enlarged for size. ABDOMEN LIVER: Nodular contour with caudate lobe hypertrophy changes. GALLBLADDER AND BILE DUCTS: No gallbladder surgically absent. PANCREAS: Unremarkable. SPLEEN: Unremarkable. ADRENAL GLANDS: Unremarkable. KIDNEYS AND URETERS: No evidence of hydronephrosis or renal calculus. The ureters are unremarkable. PELVIS BLADDER: Unremarkable REPRODUCTIVE: Prostate is enlarged in size measuring 4.7 cm in transverse dimension. ABDOMEN & PELVIS STOMACH AND BOWEL: No evidence of bowel obstruction. There is some wall thickening of the transverse colon. PERITONEUM/RETROPERITONEUM: No evidence of pneumoperitoneum. There is moderate amount of fluid throug hout the abdomen. VASCULATURE: No evidence of aortic aneurysm. MUSCULOSKELETAL: No acute osseous abnormalities, indeterminate sclerotic foci present within the spin e and L3 measuring 10 mm and T12 measuring 11 mm. LYMPH NODES: No gross evidence for lymphadenopathy. SOFT TISSUE/ABDOMINAL WALL: Fat-containing umbilical hernias. Fat-containing inguinal hernias. IMPRESSION: 1. Hepatic cirrhosis suggested with moderate ascites. Findings also suggestive of hepatic colopathy. 2. PEG tube inflatable cuff within the subcutaneous tissues of the abdominal wall. Consider further evaluation for PEG tube malfunction. Indeterminate sclerotic foci in L3 and T12 correlate for history of malignancy. Findings could repres ent metastatic disease given the lesion at T12 is new from 02/10/2023.
[2023-04-17] MEDS: ALPRAZolam 0.5 MG TAB PO PRN (21:26)
[2023-04-18] MEDS: DEXTROSE 5%-0.45% NACL 1,000 ML IV SCH ×2 (01:21→12:28)
[2023-04-18 08:08] LABS: Basophils % (A) 0 %; Eosinophils # (A) 0.1 k/uL (0-0.7); Eosinophils % (A) 3 %; HCT 39.4 % (39.0-53.0); Hypochromasia Slight; Lymphocytes # (A) 1.7 k/uL (1.0-4.8); Lymphocytes % (A) 38 %; MCH 31.4 pg (25.0-35.0); MCV 95.1 fL (80.0-100.0); Monocytes # (A) 0.2 k/uL (0-1.0); Monocytes % (A) 4 %; Neutrophils # (A) 2.3 k/uL (1.3-7.7); Neutrophils % (A) 52 %; Platelet Count 211 k/uL (150-450); RBC 4.14 m/uL (4.30-5.90); WBC 4.4 k/uL (3.8-10.6)
[2023-04-18] MEDS: HYDROmorphone 1 MG/ML 1 ML SYRINGE IVP PRN ×2 (08:51→16:31)
[2023-04-18 09:04] LABS: African American GFR (CKD) >90 (>60 ml/min/1.73 sqM); Anion Gap 7 mmol/L; Blood Urea Nitrogen 9 mg/dL (9-20); Calcium 8.1 mg/dL (8.4-10.2); Carbon Dioxide 28 mmol/L (22-30); Chloride 104 mmol/L (98-107); Glucose 90 mg/dL (74-99); Non-African American GFR(CKD) >90 (>60 ml/min/1.73 sqM); Potassium 3.6 mmol/L (3.5-5.1); Sodium 139 mmol/L (137-145)
[2023-04-18] MEDS: METOCLOPRAMIDE 10 MG TAB PO SCH ×4 (09:06→20:11)
[2023-04-18] MEDS: MORPHINE SULFATE ER 30 MG TABLET PO SCH ×2 (09:07→20:11)
[2023-04-18] MEDS: polyethylene glycoL 3350 17 GM POWD.PACK PO SCH (09:07)
[2023-04-18] MEDS: SENNOSIDES 8.6 MG TAB PO SCH ×2 (09:07→20:10)
--- NOTE | 2023-04-18 09:13 | P.GSCN ---
History of Present Illness Consult date: 04/18/23 Reason for Consult: Malfunctioning PEG tube History of present illness: 67-year-old male here for abdominal pain and distention. The patient recently diagnosed with metastatic esophageal cancer. Apparently he had a PEG tube placed about a month ago at [facility]. As part of his workup for his abdominal pain he was found to have the PEG tube cuff being present in the subcutaneous tissues outside of the gastric wall. No free air is seen. Free fluid is present. Paracentesis has been ordered. Patient appears comfortable at this time. They have not been using the feeding tube since admission. Review of Systems The patient denies any acute changes in vision or hearing, no chest pain or shortness of breath, no dysuria or hematuria, no headache, no runny nose, no rectal bleeding or melena, no unexplained weight loss Past Medical History Past Medical History: No Reported History, Cancer Additional Past Medical History / Comment(s): esophogeal cancer 01/2023 History of Any Multi-Drug Resistant Organisms: None Reported Past Surgical History: No Surgical Hx Reported, Appendectomy Additional Past Surgical History / Comment(s): PEG tube placement Past Psychological History: No Psychological Hx Reported Smoking Status: Former smoker Past Alcohol Use History: None Reported, Occasional Past Drug Use History: None Reported Medications and Allergies Home Medications Medication Instructions Recorded Confirmed Type ALPRAZolam [Xanax] 0.5 mg PO HS PRN 04/16/23 04/16/23 History Chemo Infusion (Unknown) 1 dose IV Q14D 04/16/23 04/16/23 History HYDROcodone/APAP 5-325MG [[place] 1 tab PEG/G-TUBE Q6H PRN 04/16/23 04/16/23 History 5-325] Lactulose [Constulose] 20 gm PO BID PRN 04/16/23 04/16/23 History Lidocaine Viscous [Xylocaine 15 ml PO AC-TID PRN 04/16/23 04/16/23 History Viscous 2%] Metoclopramide [Reglan] 10 mg PO ACHS 04/16/23 04/16/23 History Morphine Sulfate [Morphine Sulfate 60 mg PO Q12H 04/16/23 04/16/23 History ER] oxyCODONE HCL [oxyCODONE HCL (IR)] 10 mg PO Q4H PRN 04/16/23 04/16/23 History Allergies Allergy/AdvReac Type Severity Reaction Status Date / Time No Known Allergies Allergy Verified 04/16/23 17:50 Surgical - Exam Vital Signs Temp Pulse Resp BP Pulse Ox 97.9 F 93 18 118/87 98 04/16/23 14:04 04/16/23 14:04 04/16/23 14:04 04/16/23 14:04 04/16/23 14:04 Physical exam: General: Well-developed, well-nourished HEENT: Normocephalic, sclerae nonicteric Abdomen: Mild distended, mild tenderness, PEG tube left upper quadrant without erythema Extremities: No edema Neuro: Alert and oriented Results - Labs 04/18/23 06:26 04/18/23 06:26 Abnormal Lab Results - Last 24 Hours (Table) 04/18/23 04/18/23 Range/Units 06:26 06:26 RBC 4.14 L (4.30-5.90) m/uL Creatinine 0.62 L (0.66-1.25) mg/dL Calcium 8.1 L (8.4-10.2) mg/dL Diabetes panel 04/18/23 Range/Units 06:26 Sodium 139 (137-145) mmol/L Potassium 3.6 (3.5-5.1) mmol/L Chloride 104 (98-107) mmol/L Carbon Dioxide 28 (22-30) mmol/L BUN 9 (9-20) mg/dL Creatinine 0.62 L (0.66-1.25) mg/dL Glucose 90 (74-99) mg/dL Calcium 8.1 L (8.4-10.2) mg/dL Calcium panel 04/18/23 Range/Units 06:26 Calcium 8.1 L (8.4-10.2) mg/dL Pituitary panel 04/18/23 Range/Units 06:26 Sodium 139 (137-145) mmol/L Potassium 3.6 (3.5-5.1) mmol/L Chloride 104 (98-107) mmol/L Carbon Dioxide 28 (22-30) mmol/L BUN 9 (9-20) mg/dL Creatinine 0.62 L (0.66-1.25) mg/dL Glucose 90 (74-99) mg/dL Calcium 8.1 L (8.4-10.2) mg/dL Adrenal panel 04/18/23 Range/Units 06:26 Sodium 139 (137-145) mmol/L Potassium 3.6 (3.5-5.1) mmol/L Chloride 104 (98-107) mmol/L Carbon Dioxide 28 (22-30) mmol/L BUN 9 (9-20) mg/dL Creatinine 0.62 L (0.66-1.25) mg/dL Glucose 90 (74-99) mg/dL Calcium 8.1 L (8.4-10.2) mg/dL Assessment and Plan (1) PEG tube malfunction Narrative/Plan: 67-year-old male with malfunctioning PEG tube. CAT scan findings discussed with the patient. We'll proceed with EGD and PEG tube replacement. If we are unable to advance into the stomach because of the patient's esophagus cancer or if we are unable to advance the feeding tube back into the stomach patient may subsequently require laparotomy. Risks of bleeding, infection, recurrent malfunction, bowel injury, leak, peritonitis reviewed. He understands and wishes to proceed. Current Visit: Yes Status: Acute Code(s): K94.23 - GASTROSTOMY MALFUNCTION SNOMED Code(s): 434721639
[2023-04-18] MEDS: ENOXAPARIN 40 MG/0.4 ML SYRINGE SQ SCH (09:45)
[2023-04-18] MEDS ORDERED: IV FLUID CONTINUATION 1,000 ML IV ONE (11:29)
[2023-04-18] MEDS ORDERED: PROPOFOL 10 MG/ML 20 ML VIAL IV ONE (11:46)
[2023-04-18] MEDS ORDERED: SODIUM CHLORIDE 0.9% 500 ML 500 ML IV ONE (11:54)
[2023-04-18] MEDS: POTASSIUM CHLORIDE 10 MEQ in WATER FOR INJECTION 1 100ML.BAG IVPB SCH ×2 (12:37→13:59)
[2023-04-18] MEDS: LACTATED RINGERS 1,000 ML IV SCH (12:42)
[2023-04-18] MEDS: ALPRAZolam 0.5 MG TAB PO PRN (20:11)
--- NOTE | 2023-04-19 01:40 | P.PN ---
Subjective Progress Note Date: 04/17/23 Patient is a 67-year-old male with a past medical history of esophageal cancer diagnosed in January 2023 currently undergoing radiation and prior history of smoking presents to ER with complaints of worsening pain. Patient is complaining of generalized pain, abdominal pain, chest pain and back pain and generalized weakness. Patient is having poorly intake and is only taking liquids. Patient states that he had radiation done yesterday and is scheduled for again on Wednesday. Presented to ER due to worsening cancer related pain. No complaints of fever or chills. No cough or sputum production. No headache or dizziness or lightheadedness. Denies any dysuria. Chest x-ray showed borderline heart size. Chronic appearing changes. No definite acute process. KUB x-ray showed the single provided MAC center at the upper abdomen. The remainder of the abdominal pelvis is not exacerbated there is moderate stool burden. Overall nonobstructive bowel gas pattern. No free air is seen. Status postcholecystectomy. Laboratory showed WBC 4.5 hemoglobin 14.1 platelets 227 Sodium 143 potassium 5.3 chloride 105 bicarb is 30 BUN 14 and creatinine 0.57, troponin x1 negative proBNP 101 and albumin 3.3. Liver enzymes are not elevated. 04/17/2023 Patient is currently lying in the bed. Awake alert and oriented x3. Pain is fairly controlled with medications. Otherwise patient was noted to have PEG tube malfunction and also abdominal is distended. CT of the abdomen pelvis was ordered and general surgery was consulted for PEG tube replacement. Currently being continued IV hydration with D5 half-normal saline. Patient denies any chest pain or shortness of breath. No headache or dizziness or lightheadedness. Laboratory data showed WBC 4.5 hemoglobin 14.2 and platelets 227 Sodium 142, potassium 3.8 chloride 107 bicarb is 27 BUN 13 and creatinine 0.54 and blood sugar is 118 and albumin 3.0. Oncology is on board. Current medications reviewed. Objective - Vital Signs Vital signs: Vital Signs Temp 99.2 F 04/17/23 19:11 Pulse 77 04/17/23 19:11 Resp 18 04/17/23 19:11 BP 109/63 04/17/23 19:11 Pulse Ox 98 04/17/23 19:11 FiO2 Intake & Output 04/17/23 04/17/23 04/18/23 06:59 18:59 05:59 Intake Total 1000 Balance 1000 Weight 77.111 kg 77.111 kg Intake: Intake, IV Titration 700 Amount Dextrose 5%-0.45% NaCl 1, 700 000 ml @ 75 mls/hr IV . [id number] [facility] Rx#:[id number] Oral 300 Other: Voiding Method Toilet Toilet Diaper Diaper # Voids 3 1 # Bowel Movements 2 1 - Exam PHYSICAL EXAMINATION: Patient is lying in the bed. He appears to be in distress due to pain., awake alert and oriented.. HEENT: Normocephalic. Neck is supple. Pupils reactive. Nostrils clear. Oral cavity is moist. Neck reveals no JVD, carotid bruits, or thyromegaly. CHEST EXAMINATION: Trachea is central. Symmetrical expansion. Lung murray clear to auscultation and percussion. CARDIAC: Normal S1, S2 with no gallops. No murmurs ABDOMEN: Soft. Bowel sounds present. Abdominal is distended.. Epigastric tenderness. No guarding or rigidity. No organomegaly. No abdominal bruits. Extremities: reveal no edema. No clubbing or cyanosis Neurologically awake, alert, oriented x3 with well-coordinated movements. No focal deficits noted Skin: No rash or skin lesions. Psychiatric: Coperative. Nonsuicidal, Musculoskeletal: No joint swelling or deformity. - Labs CBC & Chem 7: 04/18/23 06:26 04/18/23 06:26 Labs: Abnormal Lab Results - Last 24 Hours (Table) 04/17/23 Range/Units 06:32 Creatinine 0.54 L (0.66-1.25) mg/dL Glucose 118 H (74-99) mg/dL Total Protein 6.1 L (6.3-8.2) g/dL Albumin 3.0 L (3.5-5.0) g/dL Assessment and Plan Assessment: Worsening malignancy related pain PEG tube malfunction Esophageal cancer diagnosed in January 2023. Currently undergoing radiation therapy. Mild hyperkalemia Constipation and moderate stool burden as per abdominal x-ray Moderate to severe protein calorie malnutrition. History of smoking DVT prophylaxis Lovenox subcu Plan: Patient will be continued on IV hydration with D5 half-normal saline. Continue with IV Dilaudid 1 mg every 3 as needed for pain and also continue with long- acting morphine 60 mg twice daily. General surgery was consulted for possible replacement of PEG tube. CT of the abdomen pelvis was ordered. Oncology is on board. Started on stool softeners and bowel regimen. Follow-up CBC and BMP tomorrow. Symptomatic management for nausea and follow-up closely. Time with Patient: Greater than 30
--- NOTE | 2023-04-19 01:43 | P.PN ---
Subjective Progress Note Date: 04/18/23 Patient is a 67-year-old male with a past medical history of esophageal cancer diagnosed in January 2023 currently undergoing radiation and prior history of smoking presents to ER with complaints of worsening pain. Patient is complaining of generalized pain, abdominal pain, chest pain and back pain and generalized weakness. Patient is having poorly intake and is only taking liquids. Patient states that he had radiation done yesterday and is scheduled for again on Wednesday. Presented to ER due to worsening cancer related pain. No complaints of fever or chills. No cough or sputum production. No headache or dizziness or lightheadedness. Denies any dysuria. Chest x-ray showed borderline heart size. Chronic appearing changes. No definite acute process. KUB x-ray showed the single provided MAC center at the upper abdomen. The remainder of the abdominal pelvis is not exacerbated there is moderate stool burden. Overall nonobstructive bowel gas pattern. No free air is seen. Status postcholecystectomy. Laboratory showed WBC 4.5 hemoglobin 14.1 platelets 227 Sodium 143 potassium 5.3 chloride 105 bicarb is 30 BUN 14 and creatinine 0.57, troponin x1 negative proBNP 101 and albumin 3.3. Liver enzymes are not elevated. 04/17/2023 Patient is currently lying in the bed. Awake alert and oriented x3. Pain is fairly controlled with medications. Otherwise patient was noted to have PEG tube malfunction and also abdominal is distended. CT of the abdomen pelvis was ordered and general surgery was consulted for PEG tube replacement. Currently being continued IV hydration with D5 half-normal saline. Patient denies any chest pain or shortness of breath. No headache or dizziness or lightheadedness. Laboratory data showed WBC 4.5 hemoglobin 14.2 and platelets 227 Sodium 142, potassium 3.8 chloride 107 bicarb is 27 BUN 13 and creatinine 0.54 and blood sugar is 118 and albumin 3.0. Oncology is on board. 04/18/2023 Patient is currently lying in bed. Awake alert and oriented x3. S/p re placement of PEG tube by general surgery. CT of the abdomen pelvis showed hepatic cirrhosis suggesting with moderate ascites. Findings suggestive of hepatic colopathy. PEG tube inflatable cuff within the subcutaneous tissue of the abdominal wall. Intermediate sclerotic foci in L3 and T12 correlate for history of malignancy. New from 02/10/2023. Laboratory showed WBC 4.4 hemoglobin 13.0 and platelets 211 BUN 9 and creatinine 0.62 and blood sugar 90. Calcium 8.1. Patient was started on tube feeding tomorrow once cleared by general surgery. Current medications reviewed. Objective - Vital Signs Vital signs: Vital Signs Temp 98.8 F 04/18/23 07:10 Pulse 78 04/18/23 07:10 Resp 18 04/18/23 07:10 BP 118/74 04/18/23 07:10 Pulse Ox 93 L 04/18/23 07:10 FiO2 Intake & Output 04/17/23 04/18/23 04/18/23 19:59 06:59 18:59 Intake Total Balance Weight 90 kg Intake: Intake, IV Titration Amount Dextrose 5%-0.45% NaCl 1, 000 ml @ 75 mls/hr IV . [id number] [facility] Rx#:[id number] Other: Voiding Method Toilet Diaper # Voids 1 # Bowel Movements - Exam PHYSICAL EXAMINATION: Patient is lying in the bed. He appears to be in distress due to pain., awake alert and oriented.. HEENT: Normocephalic. Neck is supple. Pupils reactive. Nostrils clear. Oral cavity is moist. Neck reveals no JVD, carotid bruits, or thyromegaly. CHEST EXAMINATION: Trachea is central. Symmetrical expansion. Lung murray clear to auscultation and percussion. CARDIAC: Normal S1, S2 with no gallops. No murmurs ABDOMEN: Soft. Bowel sounds present. Abdominal is distended.. Epigastric tenderness. PEG tube site intact. No discharge. No guarding or rigidity. No organomegaly. No abdominal bruits. Extremities: reveal no edema. No clubbing or cyanosis Neurologically awake, alert, oriented x3 with well-coordinated movements. No focal deficits noted Skin: No rash or skin lesions. Psychiatric: Coperative. Nonsuicidal, Musculoskeletal: No joint swelling or deformity. - Labs CBC & Chem 7: 04/18/23 06:26 04/18/23 06:26 Labs: Abnormal Lab Results - Last 24 Hours (Table) 04/18/23 04/18/23 Range/Units 06:26 06:26 RBC 4.14 L (4.30-5.90) m/uL Creatinine 0.62 L (0.66-1.25) mg/dL Calcium 8.1 L (8.4-10.2) mg/dL Assessment and Plan Assessment: Worsening malignancy related pain PEG tube malfunction Esophageal cancer diagnosed in January 2023. Currently undergoing radiation therapy. Mild hyperkalemia Constipation and moderate stool burden as per abdominal x-ray Moderate to severe protein calorie malnutrition. History of smoking DVT prophylaxis Lovenox subcu Plan: Patient will be continued on IV hydration with D5 half-normal saline. Continue with IV Dilaudid 1 mg every 3 as needed for pain and also continue with long- acting morphine 60 mg twice daily. Status post PEG tube replacement by general surgery. CT angiogram results reviewed. Ultrasound-guided paracentesis was ordered. Oncology and general surgery is on board. We will initiate PEG tube feeding once cleared by general surgery. Started on stool softeners and bowel regimen. Follow-up CBC and BMP tomorrow. Symptomatic management for nausea and follow-up closely.
[2023-04-19] MEDS: HYDROmorphone 1 MG/ML 1 ML SYRINGE IVP PRN ×3 (02:02→16:46)
[2023-04-19] MEDS: DEXTROSE 5%-0.45% NACL 1,000 ML IV SCH ×2 (02:02→16:44)
[2023-04-19] MEDS: polyethylene glycoL 3350 17 GM POWD.PACK PO SCH (08:35)
[2023-04-19] MEDS: METOCLOPRAMIDE 10 MG TAB PO SCH ×4 (08:35→20:24)
[2023-04-19] MEDS: MORPHINE SULFATE ER 30 MG TABLET PO SCH ×2 (09:40→20:24)
[2023-04-19] MEDS: ENOXAPARIN 40 MG/0.4 ML SYRINGE SQ SCH (09:40)
[2023-04-19] MEDS: SENNOSIDES 8.6 MG TAB PO SCH ×2 (09:40→20:25)
--- NOTE | 2023-04-19 11:14 | US ---
EXAMINATION TYPE: US abdomen limited DATE OF EXAM: 04/19/2023 COMPARISON: CT 04/17/2023 CLINICAL INDICATION: Male, 67 years old with history of ascites; Technique: Limited evaluation of the bilateral abdomen for ascites. FINDINGS: Trace simple appearing anechoic fluid bilaterally. IMPRESSION: Small amount of ascites
--- NOTE | 2023-04-19 11:51 | P.PN ---
Subjective Progress Note Date: 04/19/23 CHIEF COMPLAINT: Malfunctioning PEG tube HISTORY OF PRESENT ILLNESS: Patient is postop day #1 status post replacement of PEG tube. PEG tube is currently placed to drainage to Murray catheter bag. Patient had 800 mL bilious output to the night and 300 mL output this morning. Patient scheduled for paracentesis today. Patient does report diffuse abdominal discomfort. Afebrile. WBC 4.4 Last BM 04/17 PHYSICAL EXAM: VITAL SIGNS: Reviewed. GENERAL: Well-developed in no acute distress. ABDOMEN: Soft. Distended. PEG tube site with serous drainage noted around the bandaging. Bilious drainage noted from peg tube NEUROLOGIC: Alert and oriented. Cranial nerves II through XII grossly intact. ASSESSMENT: 1. Malfunctioning PEG tube status post PEG tube replacement 2. Esophageal cancer 3. Abdominal Ascites PLAN: -Keep patient nothing by mouth -Keep PEG tube to drainage -Further recommendations forthcoming per surgeon Physician Public Health Social Worker note has been reviewed by physician. Signing provider agrees with the documented findings, assessment, and plan of care. I have personally seen and examined the patient, reviewed the JAMMER OPERATOR /PAs history, exam and MDM and agree with the assessment and plan as written. Based on total visit time, I have performed more than 50% of the visit. As above: Patient still bloated. Apparently paracentesis not performed earlier today. Significant bilious output from the PEG tube that is to drainage. Will order a small bowel series to evaluate for obstruction related to carcinomatosis. Objective - Vital Signs Vital signs: Vital Signs Temp 98.8 F 04/19/23 07:46 Pulse 75 04/19/23 07:46 Resp 16 04/19/23 07:46 BP 106/67 04/19/23 07:46 Pulse Ox 95 04/19/23 07:46 FiO2 Intake & Output 04/18/23 04/19/23 04/19/23 18:59 06:59 18:59 Intake Total 300 1000 Output Total 100 1200 100 Balance 200 -200 -100 Weight 90 kg 89.9 kg Intake: IV 300 Intake, IV Titration 900 Amount Dextrose 5%-0.45% NaCl 1, 900 000 ml @ 75 mls/hr IV . [id number] [facility] Rx#:[id number] Oral 100 Output: Drainage 800 Abdomen 800 Urine 100 400 100 Other: Voiding Method Toilet Toilet Toilet Diaper Diaper Diaper # Voids 1 - Labs CBC & Chem 7: 04/18/23 06:26 04/19/23 07:30
[2023-04-19] MEDS ORDERED: ALPRAZolam 0.5 MG TAB PO SCH (12:00)
[2023-04-19 12:41] LABS: Blood Urea Nitrogen 6.1 mg/dL (9.0-27.0); Calcium 8.3 mg/dL (8.7-10.3); Carbon Dioxide 27.2 mmol/L (21.6-31.8); Chloride 104 mmol/L (96-109); Glucose 92 mg/dL (70-110); Potassium 3.6 mmol/L (3.5-5.5); Sodium 142 mmol/L (135-145)
--- NOTE | 2023-04-19 14:42 | P.PN ---
Subjective Progress Note Date: 04/19/23 Principal diagnosis: esophageal cancer, pain At today's visit patient is resting currently in bed. Patient is reporting persisting abdominal pain, distention and intermittent nausea. Denies vomiting diarrhea. Objective - Vital Signs Vital signs: Vital Signs Temp 99 F 04/19/23 12:50 Pulse 78 04/19/23 12:50 Resp 16 04/19/23 12:50 BP 131/73 04/19/23 12:50 Pulse Ox 97 04/19/23 12:50 FiO2 Intake & Output 04/18/23 04/19/23 04/19/23 18:59 06:59 18:59 Intake Total 300 1000 Output Total 100 1200 200 Balance 200 -200 -200 Weight 90 kg 89.9 kg Intake: IV 300 Intake, IV Titration 900 Amount Dextrose 5%-0.45% NaCl 1, 900 000 ml @ 75 mls/hr IV . [id number] [facility] Rx#:[id number] Oral 100 Output: Drainage 800 Abdomen 800 Urine 100 400 200 Other: Voiding Method Toilet Toilet Toilet Diaper Diaper Diaper # Voids 1 - Constitutional General appearance: Present: average body habitus, no acute distress - EENT Eyes: Present: anicteric sclerae, EOMI ENT: Present: hearing grossly normal - Respiratory Details: breathing even and unlabored - Cardiovascular Details: skin warm and dry - Gastrointestinal Gastrointestinal Comment(s): peg tube in situ General gastrointestinal: Present: distended, tenderness Localized gastrointestinal: tender: RLQ, LLQ - Integumentary Integumentary: Absent: cyanotic - Musculoskeletal Musculoskeletal: Present: generalized weakness - Psychiatric Psychiatric: Present: A&O x's 3, appropriate affect, intact judgment & insight - Labs CBC & Chem 7: 04/18/23 06:26 04/19/23 07:30 Labs: Abnormal Lab Results - Last 24 Hours (Table) 04/19/23 Range/Units 07:30 BUN 6.1 L (9.0-27.0) mg/dL Creatinine 0.5 L (0.6-1.5) mg/dL Calcium 8.3 L (8.7-10.3) mg/dL - Imaging and Cardiology US - abdomen: report reviewed Assessment and Plan (1) Cancer associated pain Current Visit: Yes Status: Acute Priority: High Code(s): G89.3 - NEOPLASM RELATED PAIN (ACUTE) (CHRONIC) SNOMED Code(s): 22123350076295 (2) Esophageal cancer, stage IV Current Visit: Yes Status: Acute Priority: High Code(s): C15.9 - MALIGNANT NEOPLASM OF ESOPHAGUS, UNSPECIFIED SNOMED Code(s): 055438837 (3) PEG tube malfunction Current Visit: Yes Status: Acute Code(s): K94.23 - GASTROSTOMY MALFUNCTION SNOMED Code(s): 528006130 Plan: Cancer associated pain: -The pt is presenting with diffuse abdominal pain associated with distention, early satiety and poor tolerance of PEG feeds. Physical exam findings as noted. The PET scan was also reviewed, and the case discussed with his son. Given the above, there is concern that the patient may have a generalized ileus that con dition because of peritoneal carcinomatosis. -CT of the abdomen will be checked with contrast. Scan revealed no evidence of bowel obstruction, hepatic cirrhosis suggested with moderate ascites, findings also suggestive of hepatic colopathy. PEG tube inflatable cough within the subcutaneous tissues of the abdominal wall. Indeterminate sclerotic foci in L3 and T12 correlate for history of malignancy. -General surgery consulted. S/P PEG tube replacement -Paracentesis ultrasound revealed small amount of ascites Esophageal cancer: -Diagnostic and therapeutic circumstances as described. The patient's son states that there in the process of changing over his treatment to our practice, due to convenience issues. - Monitor for cytopenias due to recent chemotherapy PEG tube malfunction -S/p peg replacement -Remains NPO -General surgery managing
[2023-04-19] MEDS: LACTATED RINGERS 1,000 ML IV SCH (15:14)
[2023-04-19] MEDS: ALPRAZolam 0.5 MG TAB PO PRN ×2 (15:19→20:25)
[2023-04-20] MEDS: HYDROmorphone 1 MG/ML 1 ML SYRINGE IVP PRN ×2 (00:09→13:06)
[2023-04-20] MEDS: DEXTROSE 5%-0.45% NACL 1,000 ML IV SCH ×2 (05:45→21:30)
[2023-04-20 07:37] LABS: Basophils % (A) 0 %; Eosinophils # (A) 0.1 k/uL (0-0.7); Eosinophils % (A) 2 %; HCT 40.7 % (39.0-53.0); HGB 13.4 gm/dL (13.0-17.5); Lymphocytes % (A) 33 %; MCH 30.8 pg (25.0-35.0); MCHC 32.9 g/dL (31.0-37.0); MCV 93.5 fL (80.0-100.0); Mean Platelet Volume 10.4; Monocytes # (A) 0.3 k/uL (0-1.0); Monocytes % (A) 11 %; Neutrophils # (A) 1.6 k/uL (1.3-7.7); Neutrophils % (A) 52 %; Platelet Count 181 k/uL (150-450); RBC 4.36 m/uL (4.30-5.90); RDW 14.1 % (11.5-15.5); WBC 3.1 k/uL (3.8-10.6)
[2023-04-20] MEDS: METOCLOPRAMIDE 10 MG TAB PO SCH ×4 (10:04→21:29)
[2023-04-20] MEDS: MORPHINE SULFATE ER 30 MG TABLET PO SCH ×2 (10:04→21:29)
[2023-04-20] MEDS: LACTATED RINGERS 1,000 ML IV SCH (10:05)
[2023-04-20] MEDS: SENNOSIDES 8.6 MG TAB PO SCH ×2 (10:05→21:29)
[2023-04-20] MEDS: polyethylene glycoL 3350 17 GM POWD.PACK PO SCH (10:05)
--- NOTE | 2023-04-20 11:42 | P.PN ---
Subjective Progress Note Date: 04/20/23 CHIEF COMPLAINT: Malfunctioning PEG tube HISTORY OF PRESENT ILLNESS: Patient is postop day #2 status post replacement of PEG tube. Patient currently in the process of undergoing a small bowel follow-through series. Patient reports he has had a bowel movement since starting the x-ray series. He does complain of abdominal pain and is more distended. PEG tube is currently not to drainage. Patient did have 800 mL bilious output through PEG tube through the night and 325 mL output this morning. Afebrile. WBC 3.1 PHYSICAL EXAM: VITAL SIGNS: Reviewed. GENERAL: Well-developed in no acute distress. ABDOMEN: More distended. Diffuse tenderness. PEG tube site clean dry and intact NEUROLOGIC: Alert and oriented. Cranial nerves II through XII grossly intact. ASSESSMENT: 1. Malfunctioning PEG tube status post PEG tube replacement 2. Esophageal cancer PLAN: -Patient completing small bowel follow-through series -Further recommendations forthcoming per surgeon -Keep patient nothing by mouth -Hold on starting tube feeds Physician Syrup Mixer Assistant note has been reviewed by physician. Signing provider agrees with the documented findings, assessment, and plan of care. I have personally seen and examined the patient, reviewed the COTTONSEED MEAT PRESSER /PAs history, exam and MDM and agree with the assessment and plan as written. Based on total visit time, I have performed more than 50% of the visit. As above: Patient complaining of some bloating. Mild tenderness diffusely. Small bowel follow-through results pending however contrast seen in the colon. Suspect some degree of partial bowel obstruction or dysmotility from carcinomatosis. Await final small bowel series report. Objective - Vital Signs Vital signs: Vital Signs Temp 97.6 F 04/20/23 07:30 Pulse 81 04/20/23 07:30 Resp 16 04/20/23 07:30 BP 106/62 04/20/23 07:30 Pulse Ox 96 04/20/23 07:30 FiO2 Intake & Output 04/19/23 04/20/23 04/20/23 18:59 06:59 18:59 Intake Total 900 Output Total 225 1625 Balance -225 -725 Weight 89.9 kg 93 kg Intake: Intake, IV Titration 900 Amount Dextrose 5%-0.45% NaCl 1, 900 000 ml @ 75 mls/hr IV . [id number] [facility] Rx#:[id number] Output: Drainage 1125 Abdomen 1125 Urine 225 500 Other: Voiding Method Toilet Toilet Diaper Diaper - Labs CBC & Chem 7: 04/20/23 07:04 04/19/23 07:30 Labs: Abnormal Lab Results - Last 24 Hours (Table) 04/19/23 04/20/23 Range/Units 07:30 07:04 WBC 3.1 L (3.8-10.6) k/uL BUN 6.1 L (9.0-27.0) mg/dL Creatinine 0.5 L (0.6-1.5) mg/dL Calcium 8.3 L (8.7-10.3) mg/dL
[2023-04-20] MEDS: ENOXAPARIN 40 MG/0.4 ML SYRINGE SQ SCH ×2 (12:07→12:30)
--- NOTE | 2023-04-20 14:38 | FL ---
EXAMINATION TYPE: FL small bowel follow through DATE OF EXAM: 04/20/2023 CLINICAL HISTORY: 67-year-old male evaluate for small bowel obstruction secondary to carcinomatosis. TECHNIQUE: A single contrast small bowel follow through is performed utilizing barium. Total fluoroscopy time: 0 seconds. Total images: 10. COMPARISON: Correlation CT 04/17/2023 FINDINGS: Environmental Technician image of the abdomen shows residual retained oral contrast material within the ascen ding and transverse colon. A PEG tube catheter is also demonstrated as well as cholecystectomy clips. There was an initial attempt to administer contrast orally. The patient could not tolerate the Gastro grafin. Subsequent injection through the patient's PEG tube. There appears to be fairly prompt small bowel transit time estimated around 20 to 30 minutes. The initial 5 minute image shows normal caliber to the duodenum. Distention of the duodenum to 4.2 cm on the 15 minute image is likely a transient finding as it returns to normal caliber later in the ex am. No additional dilated small bowel loops are seen. IMPRESSION: Contrast administered through the patient's PEG tube. Small bowel transit time is estimat ed around 20 to 30 minutes. No evident small bowel obstruction based on these findings.
[2023-04-20] MEDS: HYDROcodone/APAP 5-325MG 1 EACH TAB PEG/G-TUBE PRN (16:41)
[2023-04-20] MEDS: ALPRAZolam 0.5 MG TAB PO PRN (19:07)
--- NOTE | 2023-04-20 23:39 | P.PN ---
Subjective Progress Note Date: 04/20/23 Patient is a 67-year-old male with a past medical history of esophageal cancer diagnosed in January 2023 currently undergoing radiation and prior history of smoking presents to ER with complaints of worsening pain. Patient is complaining of generalized pain, abdominal pain, chest pain and back pain and generalized weakness. Patient is having poorly intake and is only taking liquids. Patient states that he had radiation done yesterday and is scheduled for again on Wednesday. Presented to ER due to worsening cancer related pain. No complaints of fever or chills. No cough or sputum production. No headache or dizziness or lightheadedness. Denies any dysuria. Chest x-ray showed borderline heart size. Chronic appearing changes. No definite acute process. KUB x-ray showed the single provided MAC center at the upper abdomen. The remainder of the abdominal pelvis is not exacerbated there is moderate stool burden. Overall nonobstructive bowel gas pattern. No free air is seen. Status postcholecystectomy. Laboratory showed WBC 4.5 hemoglobin 14.1 platelets 227 Sodium 143 potassium 5.3 chloride 105 bicarb is 30 BUN 14 and creatinine 0.57, troponin x1 negative proBNP 101 and albumin 3.3. Liver enzymes are not elevated. 04/17/2023 Patient is currently lying in the bed. Awake alert and oriented x3. Pain is fairly controlled with medications. Otherwise patient was noted to have PEG tube malfunction and also abdominal is distended. CT of the abdomen pelvis was ordered and general surgery was consulted for PEG tube replacement. Currently being continued IV hydration with D5 half-normal saline. Patient denies any chest pain or shortness of breath. No headache or dizziness or lightheadedness. Laboratory data showed WBC 4.5 hemoglobin 14.2 and platelets 227 Sodium 142, potassium 3.8 chloride 107 bicarb is 27 BUN 13 and creatinine 0.54 and blood sugar is 118 and albumin 3.0. Oncology is on board. 04/18/2023 Patient is currently lying in bed. Awake alert and oriented x3. S/p re placement of PEG tube by general surgery. CT of the abdomen pelvis showed hepatic cirrhosis suggesting with moderate ascites. Findings suggestive of hepatic colopathy. PEG tube inflatable cuff within the subcutaneous tissue of the abdominal wall. Intermediate sclerotic foci in L3 and T12 correlate for history of malignancy. New from 02/10/2023. Laboratory showed WBC 4.4 hemoglobin 13.0 and platelets 211 BUN 9 and creatinine 0.62 and blood sugar 90. Calcium 8.1. Patient was started on tube feeding tomorrow once cleared by general surgery. 04/19/2023 Patient is currently lying in bed. Awake alert and oriented x3. Status post PEG tube replacement. POD 1 Denies any complaints of chest pain or shortness of breath still complains of abdominal pain. Ultrasound of the abdomen was done but there is not enough fluid to be drained as per IR. Patient has been afebrile. No cough or sputum production. Laboratory data showed sodium 142 potassium 3.6 chloride 104 BUN 6.1 and creatinine 0.5. Currently PEG tube is draining to Murray catheter with bilious discharge. Patient currently nothing by mouth. Current medications reviewed. Objective - Vital Signs Vital signs: Vital Signs Temp 98.2 F 04/19/23 19:25 Pulse 79 04/19/23 19:25 Resp 17 04/19/23 19:50 BP 113/73 04/19/23 19:25 Pulse Ox 95 04/19/23 19:25 FiO2 Intake & Output 04/19/23 04/19/23 04/20/23 06:59 18:59 06:59 Intake Total 1000 Output Total 1200 225 900 Balance -200 -225 -900 Weight 89.9 kg Intake: Intake, IV Titration 900 Amount Dextrose 5%-0.45% NaCl 1, 900 000 ml @ 75 mls/hr IV . [id number] [facility] Rx#:[id number] Oral 100 Output: Drainage 800 800 Abdomen 800 800 Urine 400 225 100 Other: Voiding Method Toilet Toilet Toilet Diaper Diaper Diaper - Exam PHYSICAL EXAMINATION: Patient is lying in the bed. He appears to be in distress due to pain., awake alert and oriented.. HEENT: Normocephalic. Neck is supple. Pupils reactive. Nostrils clear. Oral cavity is moist. Neck reveals no JVD, carotid bruits, or thyromegaly. CHEST EXAMINATION: Trachea is central. Symmetrical expansion. Lung murray clear to auscultation and percussion. CARDIAC: Normal S1, S2 with no gallops. No murmurs ABDOMEN: Soft. Bowel sounds present. Abdominal is distended.. Epigastric tenderness. PEG tube site intact. No discharge. No guarding or rigidity. No organomegaly. No abdominal bruits. Extremities: reveal no edema. No clubbing or cyanosis Neurologically awake, alert, oriented x3 with well-coordinated movements. No focal deficits noted Skin: No rash or skin lesions. Psychiatric: Coperative. Nonsuicidal, Musculoskeletal: No joint swelling or deformity. - Labs CBC & Chem 7: 04/20/23 07:04 04/19/23 07:30 Labs: Abnormal Lab Results - Last 24 Hours (Table) 04/19/23 Range/Units 07:30 BUN 6.1 L (9.0-27.0) mg/dL Creatinine 0.5 L (0.6-1.5) mg/dL Calcium 8.3 L (8.7-10.3) mg/dL Assessment and Plan Assessment: Worsening malignancy related pain PEG tube malfunction. Status post replacement. Postoperative day 1 Esophageal cancer diagnosed in January 2023. Currently undergoing radiation therapy. Mild hyperkalemia Constipation and moderate stool burden as per abdominal x-ray Moderate to severe protein calorie malnutrition. History of smoking DVT prophylaxis Lovenox subcu Plan: Patient will be continued on IV hydration with D5 half-normal saline. Continue with IV Dilaudid 1 mg every 3 as needed for pain and also continue with long-acting morphine 60 mg twice daily. Symptomatic management for nausea Currently PEG tube is draining to Murray catheter with bilious discharge. Patient currently nothing by mouth. Ultrasound of the abdomen was done but there is not enough fluid to be drained as per IR. Started on stool softeners and bowel regimen. Follow-up CBC and BMP tomorrow. follow-up closely.
--- NOTE | 2023-04-20 23:39 | P.PN ---
Subjective Progress Note Date: 04/20/23 Patient is a 67-year-old male with a past medical history of esophageal cancer diagnosed in January 2023 currently undergoing radiation and prior history of smoking presents to ER with complaints of worsening pain. Patient is complaining of generalized pain, abdominal pain, chest pain and back pain and generalized weakness. Patient is having poorly intake and is only taking liquids. Patient states that he had radiation done yesterday and is scheduled for again on Wednesday. Presented to ER due to worsening cancer related pain. No complaints of fever or chills. No cough or sputum production. No headache or dizziness or lightheadedness. Denies any dysuria. Chest x-ray showed borderline heart size. Chronic appearing changes. No definite acute process. KUB x-ray showed the single provided MAC center at the upper abdomen. The remainder of the abdominal pelvis is not exacerbated there is moderate stool burden. Overall nonobstructive bowel gas pattern. No free air is seen. Status postcholecystectomy. Laboratory showed WBC 4.5 hemoglobin 14.1 platelets 227 Sodium 143 potassium 5.3 chloride 105 bicarb is 30 BUN 14 and creatinine 0.57, troponin x1 negative proBNP 101 and albumin 3.3. Liver enzymes are not elevated. 04/17/2023 Patient is currently lying in the bed. Awake alert and oriented x3. Pain is fairly controlled with medications. Otherwise patient was noted to have PEG tube malfunction and also abdominal is distended. CT of the abdomen pelvis was ordered and general surgery was consulted for PEG tube replacement. Currently being continued IV hydration with D5 half-normal saline. Patient denies any chest pain or shortness of breath. No headache or dizziness or lightheadedness. Laboratory data showed WBC 4.5 hemoglobin 14.2 and platelets 227 Sodium 142, potassium 3.8 chloride 107 bicarb is 27 BUN 13 and creatinine 0.54 and blood sugar is 118 and albumin 3.0. Oncology is on board. 04/18/2023 Patient is currently lying in bed. Awake alert and oriented x3. S/p re placement of PEG tube by general surgery. CT of the abdomen pelvis showed hepatic cirrhosis suggesting with moderate ascites. Findings suggestive of hepatic colopathy. PEG tube inflatable cuff within the subcutaneous tissue of the abdominal wall. Intermediate sclerotic foci in L3 and T12 correlate for history of malignancy. New from 02/10/2023. Laboratory showed WBC 4.4 hemoglobin 13.0 and platelets 211 BUN 9 and creatinine 0.62 and blood sugar 90. Calcium 8.1. Patient was started on tube feeding tomorrow once cleared by general surgery. 04/19/2023 Patient is currently lying in bed. Awake alert and oriented x3. Status post PEG tube replacement. POD 1 Denies any complaints of chest pain or shortness of breath still complains of abdominal pain. Ultrasound of the abdomen was done but there is not enough fluid to be drained as per IR. Patient has been afebrile. No cough or sputum production. Laboratory data showed sodium 142 potassium 3.6 chloride 104 BUN 6.1 and creatinine 0.5. Currently PEG tube is draining to Murray catheter with bilious discharge. Patient currently nothing by mouth. 04/20/2023 Patient is currently lying in bed. Awake alert and oriented x3. Currently nothing by mouth. Status post PEG tube replacement. Postoperative day 2. Patient is undergoing small bowel follow-through. No complaints of chest pain or shortness of breath. No cough or sputum production. Afebrile. Laboratory showed WBC 3.1 hemoglobin 13.4 and platelets 181. Current medications reviewed. Objective - Vital Signs Vital signs: Vital Signs Temp 98.4 F 04/20/23 19:37 Pulse 94 04/20/23 19:37 Resp 18 04/20/23 19:37 BP 110/62 04/20/23 19:37 Pulse Ox 95 04/20/23 19:37 FiO2 Intake & Output 04/20/23 04/20/23 04/21/23 06:59 18:59 06:59 Intake Total 900 Output Total 1625 Balance -725 Weight 93 kg 93 kg Intake: Intake, IV Titration 900 Amount Dextrose 5%-0.45% NaCl 1, 900 000 ml @ 75 mls/hr IV . [id number] [facility] Rx#:[id number] Output: Drainage 1125 Abdomen 1125 Urine 500 Other: Voiding Method Toilet Toilet Diaper Diaper - Exam PHYSICAL EXAMINATION: Patient is lying in the bed. He appears to be in distress due to pain., awake alert and oriented.. HEENT: Normocephalic. Neck is supple. Pupils reactive. Nostrils clear. Oral cavity is moist. Neck reveals no JVD, carotid bruits, or thyromegaly. CHEST EXAMINATION: Trachea is central. Symmetrical expansion. Lung murray clear to auscultation and percussion. CARDIAC: Normal S1, S2 with no gallops. No murmurs ABDOMEN: Soft. Bowel sounds present. Abdominal is distended.. Epigastric tenderness. PEG tube site intact. No discharge. No guarding or rigidity. No organomegaly. No abdominal bruits. Extremities: reveal no edema. No clubbing or cyanosis Neurologically awake, alert, oriented x3 with well-coordinated movements. No focal deficits noted Skin: No rash or skin lesions. Psychiatric: Coperative. Nonsuicidal, Musculoskeletal: No joint swelling or deformity. - Labs CBC & Chem 7: 04/20/23 07:04 04/19/23 07:30 Labs: Abnormal Lab Results - Last 24 Hours (Table) 04/19/23 04/20/23 Range/Units 07:30 07:04 WBC 3.1 L (3.8-10.6) k/uL BUN 6.1 L (9.0-27.0) mg/dL Creatinine 0.5 L (0.6-1.5) mg/dL Calcium 8.3 L (8.7-10.3) mg/dL Assessment and Plan Assessment: Worsening malignancy related pain PEG tube malfunction. Status post replacement. Postoperative day 2 Esophageal cancer diagnosed in January 2023. Currently undergoing radiation therapy. Mild hyperkalemia Constipation and moderate stool burden as per abdominal x-ray Moderate to severe protein calorie malnutrition. History of smoking DVT prophylaxis Lovenox subcu Plan: Patient is undergoing small bowel follow-through Patient will be continued on IV hydration with D5 half-normal saline. Continue with IV Dilaudid 1 mg every 3 as needed for pain and also continue with long-acting morphine 60 mg twice daily. Symptomatic management for nausea Patient currently nothing by mouth. Ultrasound of the abdomen was done but there is not enough fluid to be drained as per IR. Started on stool softeners and bowel regimen. Follow-up CBC and BMP tomorrow. follow-up closely.
[2023-04-21] MEDS: HYDROmorphone 1 MG/ML 1 ML SYRINGE IVP PRN ×2 (01:12→15:54)
[2023-04-21] MEDS: polyethylene glycoL 3350 17 GM POWD.PACK PO SCH ×2 (09:30→10:10)
[2023-04-21] MEDS: ENOXAPARIN 40 MG/0.4 ML SYRINGE SQ SCH (09:30)
[2023-04-21] MEDS: MORPHINE SULFATE ER 30 MG TABLET PO SCH ×2 (09:31→21:25)
[2023-04-21] MEDS: METOCLOPRAMIDE 10 MG TAB PO SCH ×4 (09:31→21:25)
[2023-04-21] MEDS: SENNOSIDES 8.6 MG TAB PO SCH ×2 (09:31→21:26)
[2023-04-21] MEDS: DEXTROSE 5%-0.45% NACL 1,000 ML IV SCH ×2 (11:19→21:27)
[2023-04-21] MEDS: LACTATED RINGERS 1,000 ML IV SCH (11:20)
--- NOTE | 2023-04-21 13:10 | P.PN ---
Subjective Progress Note Date: 04/21/23 CHIEF COMPLAINT: Malfunctioning PEG tube HISTORY OF PRESENT ILLNESS: Patient is postop day #3 status post replacement of PEG tube. Patient completed small bowel follow-through series yesterday showed no evidence of small bowel obstruction. Patient's PEG tube is currently to drainage with 700 mL out during the night and 200ml this morning. Afebrile. Patient reports having bowel movements yesterday and this AM. PHYSICAL EXAM: VITAL SIGNS: Reviewed. GENERAL: Well-developed in no acute distress. ABDOMEN: distended. Diffuse tenderness. Tender at peg tube site. PEG tube site clean dry and intact NEUROLOGIC: Alert and oriented. Cranial nerves II through XII grossly intact. ASSESSMENT: 1. Malfunctioning PEG tube status post PEG tube replacement 2. Esophageal cancer PLAN: -Further recommendations forthcoming per surgeon -Patient continues to have significant drainage from PEG tube. Continue to keep PEG tube drainage. -Keep patient nothing by mouth -Hold on starting tube feeds Physician Video Editing Internship note has been reviewed by physician. Signing provider agrees with the documented findings, assessment, and plan of care. Patient still bloated. G-tube with decreased output however. No nausea or vomiting. We'll clamp NG tube overnight and see if the patient develops nausea or vomiting. Tentatively plan starting low-dose tube feeds through G-tube tomorrow. 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 He is still distended. Consider reattempt at paracentesis. Objective - Vital Signs Vital signs: Vital Signs Temp 98.2 F 04/21/23 07:15 Pulse 86 04/21/23 07:15 Resp 16 04/21/23 07:15 BP 122/79 04/21/23 07:15 Pulse Ox 98 04/21/23 07:15 FiO2 Intake & Output 04/20/23 04/21/23 04/21/23 18:59 06:59 18:59 Intake Total 280 Output Total 700 Balance -420 Weight 93 kg 89 kg Intake: Oral 280 Output: Gastric Drainage 700 Other: Voiding Method Toilet Toilet Diaper Diaper - Labs CBC & Chem 7: 04/20/23 07:04 04/19/23 07:30
--- NOTE | 2023-04-21 14:25 | CDI ---
Documentation Clarification Form Date: 04/21/2023 02:05:40 PM From: Kathleen Lee RN, CCDS Admit Date: 04/19/2023 10:37:00 AM Patient Name: Arley Grace Visit Number: [id number] Discharge Date: ATTENTION: The Clinical Documentation Specialists (CDI) and [facility] Coding Staff appreciate your assistance in clarifying documentation. Please respond to the clarification below the line at the bottom and electronically sign. The CDI & [facility] Coding staff will review the response and follow-up if needed. Please note: Queries are made part of the Legal Health Record. If you have any questions, please contact the author of this message via ITS. Dr. Deepa Rinaldi Conflicting documentation has been found in the medical record. A range for the degree of malnutrition has been given. As attending physician, please provide clarification. H/P and subsequent progress notes: Moderate to severe protein calorie malnutrition. History/Risk Factors: Esophageal cancer 01/2023 Clinical Indicators: 67-year-old male history of esophageal cancer. Patient is complaining of generalized pain, abdominal pain. Patient is having poorly intake and is only taking liquids. He had PEG tube malfunction. Status post replacement. 04/17 Nutritional assessment: 5ft 8 in BMI 25.8 Nutrition Intake Poor Nutrition Diagnosis Malnutrition, Severe malnutrition in the context of social circumstance Poor compliance to enteral nutrition recommendations Treatment: Tube Feeding Jevity 64 ml/hr. with 30 ml H20 flushes q4 hrs. Monitor Tube Feeding Please clarify which diagnosis is most appropriate: [ x ] Severe protein calorie malnutrition [ ] Moderate protein calorie malnutrition [ ] Other (please specify) [ ] Unable to determine (Template Last Revised: August 2020) MTDD
[2023-04-22] MEDS: HYDROmorphone 1 MG/ML 1 ML SYRINGE IVP PRN (05:41)
[2023-04-22] MEDS: SENNOSIDES 8.6 MG TAB PO SCH ×2 (09:04→21:19)
[2023-04-22] MEDS: METOCLOPRAMIDE 10 MG TAB PO SCH ×4 (09:04→21:19)
[2023-04-22] MEDS: ENOXAPARIN 40 MG/0.4 ML SYRINGE SQ SCH (09:04)
[2023-04-22] MEDS: MORPHINE SULFATE ER 30 MG TABLET PO SCH ×2 (09:04→21:19)
[2023-04-22] MEDS: polyethylene glycoL 3350 17 GM POWD.PACK PO SCH (09:05)
[2023-04-22] MEDS: LACTATED RINGERS 1,000 ML IV SCH (12:28)
--- NOTE | 2023-04-22 13:43 | P.PN ---
Subjective Progress Note Date: 04/22/23 CHIEF COMPLAINT: Malfunctioning PEG tube HISTORY OF PRESENT ILLNESS: Patient is postop day #4 status post replacement of PEG tube. Patient's abdomen is distended he has diffuse abdominal pain. And there is bilious drainage from around the PEG tube. PEG tube is currently clamped. Patient reports having bowel movements. Afebrile. PHYSICAL EXAM: VITAL SIGNS: Reviewed. GENERAL: Well-developed in no acute distress. ABDOMEN: distended. Diffuse tenderness. Tender at peg tube site. Dressing around PEG tube site with bilious drainage NEUROLOGIC: Alert and oriented. Cranial nerves II through XII grossly intact. ASSESSMENT: 1. Malfunctioning PEG tube status post PEG tube replacement 2. Esophageal cancer 3. 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 PLAN: -Place PEG tube drainage and monitor closely. This was discussed with nursing staff. -Keep patient nothing by mouth -Hold on starting tube feeds Physician Theatre Director note has been reviewed by physician. Signing provider agrees with the documented findings, assessment, and plan of care. I have personally seen and examined the patient, reviewed the CERTIFIED MASTER SAFECRACKER /PAs history, exam and MDM and agree with the assessment and plan as written. Based on total visit time, I have performed more than 50% of the visit. As above: Patient has had no significant drainage from the PEG tube today. Begin tube feeds at 10 mL per hour. Objective - Vital Signs Vital signs: Vital Signs Temp 98 F 04/22/23 07:45 Pulse 75 04/22/23 07:45 Resp 14 04/22/23 07:45 BP 106/72 04/22/23 07:45 Pulse Ox 93 L 04/22/23 07:45 FiO2 Intake & Output 04/21/23 04/22/23 04/22/23 18:59 06:59 18:59 Intake Total 240 Balance 240 Weight 89.6 kg Intake: Oral 240 Other: Voiding Method Toilet Diaper # Voids 1 0 # Bowel Movements 1 0 - Labs CBC & Chem 7: 04/20/23 07:04 04/19/23 07:30
[2023-04-22] MEDS: DEXTROSE 5%-0.45% NACL 1,000 ML IV SCH ×2 (14:15→21:21)
[2023-04-22] MEDS: HYDROcodone/APAP 5-325MG 1 EACH TAB PEG/G-TUBE PRN (17:43)
--- NOTE | 2023-04-22 19:31 | P.PN ---
Subjective Progress Note Date: 04/22/23 Patient is a 67-year-old male with a past medical history of esophageal cancer diagnosed in January 2023 currently undergoing radiation and prior history of smoking presents to ER with complaints of worsening pain. Patient is complaining of generalized pain, abdominal pain, chest pain and back pain and generalized weakness. Patient is having poorly intake and is only taking liquids. Patient states that he had radiation done yesterday and is scheduled for again on Wednesday. Presented to ER due to worsening cancer related pain. No complaints of fever or chills. No cough or sputum production. No headache or dizziness or lightheadedness. Denies any dysuria. Chest x-ray showed borderline heart size. Chronic appearing changes. No definite acute process. KUB x-ray showed the single provided MAC center at the upper abdomen. The remainder of the abdominal pelvis is not exacerbated there is moderate stool burden. Overall nonobstructive bowel gas pattern. No free air is seen. Status postcholecystectomy. Laboratory showed WBC 4.5 hemoglobin 14.1 platelets 227 Sodium 143 potassium 5.3 chloride 105 bicarb is 30 BUN 14 and creatinine 0.57, troponin x1 negative proBNP 101 and albumin 3.3. Liver enzymes are not elevated. 04/17/2023 Patient is currently lying in the bed. Awake alert and oriented x3. Pain is fairly controlled with medications. Otherwise patient was noted to have PEG tu be malfunction and also abdominal is distended. CT of the abdomen pelvis was ordered and general surgery was consulted for PEG tube replacement. Currently being continued IV hydration with D5 half-normal saline. Patient denies any chest pain or shortness of breath. No headache or dizziness or lightheadedness. Laboratory data showed WBC 4.5 hemoglobin 14.2 and platelets 227 Sodium 142, potassium 3.8 chloride 107 bicarb is 27 BUN 13 and creatinine 0.54 and blood sugar is 118 and albumin 3.0. Oncology is on board. 04/18/2023 Patient is currently lying in bed. Awake alert and oriented x3. S/p replacement of PEG tube by general surgery. CT of the abdomen pelvis showed hepatic cirrhosis suggesting with moderate ascites. Findings suggestive of hepatic colopathy. PEG tube inflatable cuff wi thin the subcutaneous tissue of the abdominal wall. Intermediate sclerotic foci in L3 and T12 correlate for history of malignancy. New from 02/10/2023. Laboratory showed WBC 4.4 hemoglobin 13.0 and platelets 211 BUN 9 and creatinine 0.62 and blood sugar 90. Calcium 8.1. Patient was started on tube feeding tomorrow once cleared by general surgery. 04/19/2023 Patient is currently lying in bed. Awake alert and oriented x3. Status post PEG tube replacement. POD 1 Denies any complaints of chest pain or shortness of breath still complains of abdominal pain. Ultrasound of the abdomen was done but there is not enough fluid to be drained as per IR. Patient has been afebrile. No cough or sputum production. Laboratory data showed sodium 142 potassium 3.6 chloride 104 BUN 6.1 and creatinine 0.5. Currently PEG tube is draining to Murray catheter with bilious discharge. Patient currently nothing by mouth. 04/20/2023 Patient is currently lying in bed. Awake alert and oriented x3. Currently no thing by mouth. Status post PEG tube replacement. Postoperative day 2. Patient is undergoing small bowel follow-through. No complaints of chest pain or shortness of breath. No cough or sputum produc tion. Afebrile. Laboratory showed WBC 3.1 hemoglobin 13.4 and platelets 181. 04/22/2023 Patient is seen and evaluated in follow-up today being followed by general surgery. Plan was for restarting PEG tube feedings and awaiting surgeon recommendations as there was some noted drainage around the PEG tube. Per Dr. Sadler patient okay to start tube feedings at a low rate and monitor. Patient reports to having some nausea with no vomiting noted. Patient also continues with significant weakness in case management is following looking into possibly ECF. Patient is currently afebrile with no reported chest pain or shortness of breath. Patient is maintained on gentle IV hydration and a.m. labs are pending. Review of systems: Constitutional: reports of fatigue, no fever, or chills Cardiovascular: No reports of chest pain or palpitations Respiratory: No reports of shortness of breath or cough GI: reports of nausea, no vomiting, or diarrhea : No reports of dysuria or retention Neurovascular: reports of generalized weakness All medications have been reviewed Physical exam: Patient is lying in the bed., awake alert and oriented.., Appears older than stated age, well-developed, obese HEENT: Normocephalic. Neck is supple. Pupils reactive. Nostrils clear. Oral cavity is moist. Neck reveals no JVD, carotid bruits, or thyromegaly. CHEST EXAMINATION: Trachea is central. Symmetrical expansion. Lung murray clear to auscultation and percussion. CARDIAC: Normal S1, S2 with no gallops. No murmurs ABDOMEN: Soft. Bowel sounds present. Abdomen is distended.. Epigastric tendern ess. PEG tube site intact. No discharge. No guarding or rigidity. No organomegaly. No abdominal bruits. Extremities: reveal no edema. No clubbing or cyanosis Neurologically awake, alert, oriented x3 with well-coordinated movements. No focal deficits noted, diffusely weak Skin: No rash or skin lesions. Psychiatric: Cooperative. Non-suicidal, Musculoskeletal: No joint swelling or deformity. Assessment: Worsening malignancy related pain PEG tube malfunction. Status post replacement. Esophageal cancer diagnosed in January 2023. Currently undergoing radiation therapy. Mild hyperkalemia Constipation and moderate stool burden as per abdominal x-ray severe protein calorie malnutrition. History of smoking DVT prophylaxis Lovenox subcu GI prophylaxis Full code Plan: Patient underwent small bowel follow-through with no blockage noted. Patient reports is having bowel movements Patient will be continued on IV hydration with D5 half-normal saline. Continue with IV Dilaudid 1 mg every 3 as needed for pain and also continue with long-acting morphine 60 mg twice daily. Symptomatic management for nausea Patient continues with significant weakness and will need PT/OT therapy evaluation. Patient management following working on possible ECF Patient currently nothing by mouth. Surgery has evaluated the patient recommending starting tube feedings this evening at 10 and monitoring for tolerance and any residual and worsening abdominal pain Ultrasound of the abdomen was done but there is not enough fluid to be drained as per IR. Continue stool softeners and bowel regimen. The impression and plan of care has been dictated by Esther Nava, Nurse Practitioner as directed. Dr. Linnea MD I have performed a history and examination and MDM of this patient, discussed the same with the dictator, and agree with the dictator's assessment and plan as written ,documented as a scribe. Based on total visit time, I have performed more than 50% of the visit. Objective - Vital Signs Vital signs: Vital Signs Temp 98.4 F 04/22/23 13:05 Pulse 73 04/22/23 13:05 Resp 18 04/22/23 13:05 BP 103/64 04/22/23 13:05 Pulse Ox 93 L 04/22/23 13:05 FiO2 Intake & Output 04/22/23 04/22/23 04/23/23 06:59 18:59 06:59 Intake Total 30 Output Total 125 Balance -95 Weight 89.6 kg 89.6 kg Intake: Oral 30 Output: Urine 125 Other: Voiding Method Toilet Diaper # Voids 0 # Bowel Movements 0 - Labs CBC & Chem 7: 04/20/23 07:04 04/19/23 07:30
[2023-04-23] MEDS: MORPHINE SULFATE ER 30 MG TABLET PO SCH ×2 (08:59→21:08)
[2023-04-23] MEDS: ENOXAPARIN 40 MG/0.4 ML SYRINGE SQ SCH (09:00)
[2023-04-23] MEDS: SENNOSIDES 8.6 MG TAB PO SCH ×2 (09:00→21:08)
[2023-04-23] MEDS: METOCLOPRAMIDE 10 MG TAB PO SCH ×4 (09:00→21:10)
[2023-04-23] MEDS: polyethylene glycoL 3350 17 GM POWD.PACK PO SCH (09:00)
[2023-04-23 09:09] LABS: BUN/Creat Ratio 10.14 Ratio (12.00-20.00); Blood Urea Nitrogen 7.1 mg/dL (9.0-27.0); Calcium 8.3 mg/dL (8.7-10.3); Carbon Dioxide 28.4 mmol/L (21.6-31.8); Chloride 103 mmol/L (96-109); Glucose 95 mg/dL (70-110); Magnesium 1.9 mg/dL (1.5-2.4); Potassium 3.3 mmol/L (3.5-5.5); Sodium 141 mmol/L (135-145)
[2023-04-23 09:47] LABS: HCT 40.5 % (39.6-50.0); HGB 12.7 g/dL (13.0-17.0); MCHC 31.4 g/dL (32.0-37.0); MCV 95.5 FL (80.0-97.0); Mean Platelet Volume 12.7 FL (9.5-12.2); NRBC Per 100 WBC 0 X 10*3/uL (0.00-0.01); Platelet Count 191 X 10*3/uL (140-440); RBC 4.24 X 10*6/uL (4.40-5.60); RDW 14.9 % (11.5-14.5); WBC 4.96 X 10*3/uL (4.50-10.00)
[2023-04-23 09:48] LABS: Basophils # (A) 0.03 X 10*3/uL (0.00-0.10); Basophils % (A) 0.6 %; Lymphocytes # (A) 1.39 X 10*3/uL (0.90-5.00); Monocytes # (A) 1.06 X 10*3/uL (0.20-1.00); Monocytes % (A) 21.4 %; Neutrophils # (A) 2.36 X 10*3/uL (1.80-7.70); Neutrophils % (A) 47.6 %
[2023-04-23] MEDS: ALPRAZolam 0.5 MG TAB PO PRN ×2 (11:25→21:08)
[2023-04-23] MEDS: HYDROcodone/APAP 5-325MG 1 EACH TAB PEG/G-TUBE PRN ×2 (11:25→21:08)
--- NOTE | 2023-04-23 12:37 | P.PN ---
Subjective Progress Note Date: 04/23/23 CHIEF COMPLAINT: Malfunctioning PEG tube HISTORY OF PRESENT ILLNESS: Patient is postop day #5 status post replacement of PEG tube. Patient's abdomen is distended and he has diffuse abdominal pain. Peg tube had 250ml drainage this morning. The Murray catheter bag that the PEG tube is draining into does keep getting plugged. Afebrile. WBC is 4.96 Hgb 12.7 platelets 191 sodium 141 potassium 3.3 creatinine 0.7 Mg 1.9 PHYSICAL EXAM: VITAL SIGNS: Reviewed. GENERAL: Well-developed in no acute distress. ABDOMEN: distended. Diffuse tenderness. Tender at peg tube site. Dressing around PEG tube site with bilious drainage NEUROLOGIC: Alert and oriented. Cranial nerves II through XII grossly intact. ASSESSMENT: 1. Malfunctioning PEG tube status post PEG tube replacement 2. Esophageal cancer 3. 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 PLAN: -Keep PEG tube to drainage and monitor -Keep patient nothing by mouth -Hold on starting tube feeds Physician Equipment Service Lead note has been reviewed by physician. Signing provider agrees with the documented findings, assessment, and plan of care. I have personally seen and examined the patient, reviewed the GLASSWARE VERIFIER /PAs history, exam and MDM and agree with the assessment and plan as written. Based on total visit time, I have performed more than 50% of the visit. As above: Patient was having decreased output through the gastrostomy tube however this morning the nurse noticed that the catheter was occluded. When she aspirated she got about 250-300cc out. The tube was now to dependent drainage. Still with bilious output. Case was reviewed with the patient, his son, and al nelly Casas. I do suspect ongoing dysmotility from the patient's carcinomatosis. No bong obstruction seen on recent small bowel series. Unfortunately I don't see an option but TPN from a nutritional point of view at this point. Oncology plans to discuss further whether they want to continue TPN and chemotherapy simultaneously. Sounds like they will be having a family meeting. No further surgical intervention planned at this time. We'll sign off. Please call if needed. Objective - Vital Signs Vital signs: Vital Signs Temp 98.5 F 04/23/23 08:00 Pulse 71 04/23/23 08:00 Resp 16 04/23/23 02:00 BP 113/71 04/23/23 08:00 Pulse Ox 93 L 04/23/23 08:00 FiO2 Intake & Output 04/22/23 04/23/23 04/23/23 18:59 06:59 18:59 Intake Total 30 240 Output Total 125 500 Balance -95 240 -500 Weight 89.6 kg 90.809 kg Intake: Oral 30 240 Output: Drainage 400 Abdomen 400 Urine 125 100 Other: Voiding Method Toilet Diaper # Voids 0 - Labs CBC & Chem 7: 04/23/23 05:50 04/23/23 05:50 Labs: Abnormal Lab Results - Last 24 Hours (Table) 04/23/23 04/23/23 Range/Units 05:50 05:50 RBC 4.24 L (4.40-5.60) X 10*6/uL Hgb 12.7 L (13.0-17.0) g/dL MCHC 31.4 L (32.0-37.0) g/dL RDW 14.9 H (11.5-14.5) % MPV 12.7 H (9.5-12.2) FL Monocytes # 1.06 H (0.20-1.00) X 10*3/uL Potassium 3.3 L (3.5-5.5) mmol/L BUN 7.1 L (9.0-27.0) mg/dL BUN/Creatinine Ratio 10.14 L (12.00-20.00) Ratio Calcium 8.3 L (8.7-10.3) mg/dL
--- NOTE | 2023-04-23 16:02 | P.PN ---
Subjective Progress Note Date: 04/23/23 Principal diagnosis: esophageal cancer, pain At today's visit patient is resting currently in bed. Patient is reporting persisting abdominal discomfort. Denies vomiting, Pt remains NPO, surgery following. Objective - Vital Signs Vital signs: Vital Signs Temp 98.5 F 04/23/23 14:00 Pulse 72 04/23/23 14:00 Resp 16 04/23/23 02:00 BP 106/66 04/23/23 14:00 Pulse Ox 93 L 04/23/23 14:00 FiO2 Intake & Output 04/22/23 04/23/23 04/23/23 18:59 06:59 18:59 Intake Total 30 240 Output Total 125 720 Balance -95 240 -720 Weight 89.6 kg 90.809 kg 90.809 kg Intake: Oral 30 240 Output: Drainage 620 Abdomen 620 Urine 125 100 Other: Voiding Method Toilet Toilet Diaper Diaper # Voids 0 - Constitutional General appearance: Present: no acute distress - EENT ENT: Present: hearing grossly normal - Respiratory Details: breathing is even and unlabored - Cardiovascular Details: skin warm and dry - Gastrointestinal Gastrointestinal Comment(s): peg tube in situ - Integumentary Integumentary: Absent: cyanotic - Musculoskeletal Musculoskeletal: Present: strength equal bilaterally - Psychiatric Psychiatric: Present: A&O x's 3 - Labs CBC & Chem 7: 04/23/23 05:50 04/23/23 05:50 Labs: Abnormal Lab Results - Last 24 Hours (Table) 04/23/23 04/23/23 Range/Units 05:50 05:50 RBC 4.24 L (4.40-5.60) X 10*6/uL Hgb 12.7 L (13.0-17.0) g/dL MCHC 31.4 L (32.0-37.0) g/dL RDW 14.9 H (11.5-14.5) % MPV 12.7 H (9.5-12.2) FL Monocytes # 1.06 H (0.20-1.00) X 10*3/uL Potassium 3.3 L (3.5-5.5) mmol/L BUN 7.1 L (9.0-27.0) mg/dL BUN/Creatinine Ratio 10.14 L (12.00-20.00) Ratio Calcium 8.3 L (8.7-10.3) mg/dL - Imaging and Cardiology Abdominal x-ray: report reviewed Assessment and Plan (1) Cancer associated pain Current Visit: Yes Status: Acute Priority: High Code(s): G89.3 - NEOPLASM RELATED PAIN (ACUTE) (CHRONIC) SNOMED Code(s): 27153040983222 (2) Esophageal cancer, stage IV Current Visit: Yes Status: Acute Priority: High Code(s): C15.9 - MALIGNANT NEOPLASM OF ESOPHAGUS, UNSPECIFIED SNOMED Code(s): 098493529 (3) PEG tube malfunction Current Visit: Yes Status: Acute Code(s): K94.23 - GASTROSTOMY MALFUNCTION SNOMED Code(s): 978034064 Plan: Cancer associated pain: -The pt is presenting with diffuse abdominal pain associated with distention, early satiety and poor tolerance of PEG feeds. Physical exam findings as noted. The PET scan was also reviewed, and the case discussed with his son. Given the above, there is concern that the patient may have a generalized ileus that condition because of peritoneal carcinomatosis. -CT of the abdomen will be checked with contrast. Scan revealed no evidence of bowel obstruction, hepatic cirrhosis suggested with moderate ascites, findings also suggestive of hepatic colopathy. PEG tube inflatable cough within the subcutaneous tissues of the abdominal wall. Indeterminate sclerotic foci in L3 and T12 correlate for history of malignancy. -General surgery consulted. S/P PEG tube replacement -Paracentesis ultrasound revealed small amount of ascites Esophageal cancer: -Diagnostic and therapeutic circumstances as described in consult HPI. The patient's son states that there in the process of changing over his treatment to our practice, due to convenience issues. Records requested - Monitor for cytopenias due to recent chemotherapy. Counts stable -Will schedule f/u upon discharge to establish care within clinic PEG tube malfunction -S/p peg replacement -Small bowel x-ray on 04/20 revealed small bowel transit time estimated around 20-30 seconds with no evidence for small bowel obstruction -Remains NPO, tube feedings held -General surgery managing
[2023-04-23] MEDS: DEXTROSE 5%-0.45% NACL 1,000 ML IV SCH ×2 (16:38→21:10)
[2023-04-23] MEDS: POTASSIUM CHLORIDE 10 MEQ in WATER FOR INJECTION 1 100ML.BAG IVPB SCH ×2 (17:22→18:26)
--- NOTE | 2023-04-23 18:08 | P.PN ---
Subjective Progress Note Date: 04/23/23 67-year-old male with a past medical history of esophageal cancer diagnosed in January 2023 currently undergoing radiation and prior history of smoking presents to ER with complaints of worsening pain. Patient is complaining of generalized pain, abdominal pain, chest pain and back pain and generalized weakness. Patient is having poorly intake and is only taking liquids. Patient states that he had radiation done yesterday and is scheduled for again on Wednesday. Presented to ER due to worsening cancer related pain. No complaints of fever or chills. No cough or sputum production. No headache or dizziness or lightheadedness. Denies any dysuria. Chest x-ray showed borderline heart size. Chronic appearing changes. No definite acute process. KUB x-ray showed the single provided MAC center at the upper abdomen. The remainder of the abdominal pelvis is not exacerbated there is moderate stool b urden. Overall nonobstructive bowel gas pattern. No free air is seen. Status postcholecystectomy. Laboratory showed WBC 4.5 hemoglobin 14.1 platelets 227 Sodium 143 potassium 5.3 chloride 105 bicarb is 30 BUN 14 and creatinine 0.57, troponin x1 negative proBNP 101 and albumin 3.3. Liver enzymes are not elevated. Objective - Vital Signs Vital signs: Vital Signs Temp 98.5 F 04/23/23 08:00 Pulse 71 04/23/23 08:00 Resp 16 04/23/23 02:00 BP 113/71 04/23/23 08:00 Pulse Ox 93 L 04/23/23 08:00 FiO2 Intake & Output 04/22/23 04/23/23 04/23/23 18:59 06:59 18:59 Intake Total 30 240 Output Total 125 500 Balance -95 240 -500 Weight 89.6 kg 90.809 kg Intake: Oral 30 240 Output: Drainage 400 Abdomen 400 Urine 125 100 Other: Voiding Method Toilet Toilet Diaper Diaper # Voids 0 - Exam Patient is lying in the bed., awake alert and oriented.., Appears older than stated age, well-developed, obese HEENT: Normocephalic. Neck is supple. Pupils reactive. Nostrils clear. Oral cavity is moist. Neck reveals no JVD, carotid bruits, or thyromegaly. CHEST EXAMINATION: Trachea is central. Symmetrical expansion. Lung murray clear to auscultation and percussion. CARDIAC: Normal S1, S2 with no gallops. No murmurs ABDOMEN: Soft. Bowel sounds present. Abdomen is distended.. Epigastric tenderness. PEG tube site intact. No discharge. No guarding or rigidity. No organomegaly. No abdominal bruits. Extremities: reveal no edema. No clubbing or cyanosis Neurologically awake, alert, oriented x3 with well-coordinated movements. No focal deficits noted, diffusely weak Skin: No rash or skin lesions. Psychiatric: Cooperative. Non-suicidal, Musculoskeletal: No joint swelling or deformity. - Labs CBC & Chem 7: 04/23/23 05:50 04/23/23 05:50 Labs: Abnormal Lab Results - Last 24 Hours (Table) 04/23/23 04/23/23 Range/Units 05:50 05:50 RBC 4.24 L (4.40-5.60) X 10*6/uL Hgb 12.7 L (13.0-17.0) g/dL MCHC 31.4 L (32.0-37.0) g/dL RDW 14.9 H (11.5-14.5) % MPV 12.7 H (9.5-12.2) FL Monocytes # 1.06 H (0.20-1.00) X 10*3/uL Potassium 3.3 L (3.5-5.5) mmol/L BUN 7.1 L (9.0-27.0) mg/dL BUN/Creatinine Ratio 10.14 L (12.00-20.00) Ratio Calcium 8.3 L (8.7-10.3) mg/dL Assessment and Plan Assessment: Worsening malignancy related pain PEG tube malfunction. Status post replacement. Esophageal cancer diagnosed in January 2023. Currently undergoing radiation therapy. Mild hyperkalemia Constipation and moderate stool burden as per abdominal x-ray severe protein calorie malnutrition. History of smoking DVT prophylaxis Lovenox subcu GI prophylaxis Full code Plan: Patient underwent small bowel follow-through with no blockage noted. Patient reports is having bowel movements Patient will be continued on IV hydration with D5 half-normal saline. Continue with IV Dilaudid 1 mg every 3 as needed for pain and also continue with long-acting morphine 60 mg twice daily. Symptomatic management for nausea Patient continues with significant weakness and will need PT/OT therapy evaluation. Patient management following working on possible ECF Patient currently nothing by mouth. Surgery has evaluated the patient recommending starting tube feedings this evening at 10 and monitoring for tolerance and any residual and worsening abdominal pain Ultrasound of the abdomen was done but there is not enough fluid to be drained as per IR. Continue stool softeners and bowel regimen.
[2023-04-24] MEDS: ONDANSETRON 4 MG/2 ML VIAL IVP PRN (01:40)
[2023-04-24] MEDS: HYDROmorphone 1 MG/ML 1 ML SYRINGE IVP PRN (05:30)
[2023-04-24] MEDS: MORPHINE SULFATE ER 30 MG TABLET PO SCH ×2 (08:11→20:22)
[2023-04-24] MEDS: SENNOSIDES 8.6 MG TAB PO SCH ×2 (08:11→20:22)
[2023-04-24] MEDS: METOCLOPRAMIDE 10 MG TAB PO SCH ×3 (08:12→17:25)
[2023-04-24] MEDS: ENOXAPARIN 40 MG/0.4 ML SYRINGE SQ SCH (08:12)
[2023-04-24] MEDS: polyethylene glycoL 3350 17 GM POWD.PACK PO SCH (08:12)
[2023-04-24 11:08] LABS: Basophils # (A) 0.02 X 10*3/uL (0.00-0.10); Basophils % (A) 0.4 %; Eosinophils # (A) 0.07 X 10*3/uL (0.04-0.35); Eosinophils % (A) 1.2 %; HCT 39.6 % (39.6-50.0); HGB 12.7 g/dL (13.0-17.0); Lymphocytes # (A) 1.29 X 10*3/uL (0.90-5.00); Lymphocytes % (A) 22.8 %; MCH 30.4 pg (27.0-32.0); MCHC 32.1 g/dL (32.0-37.0); MCV 94.7 FL (80.0-97.0); Mean Platelet Volume 13.5 FL (9.5-12.2); Monocytes # (A) 1.18 X 10*3/uL (0.20-1.00); Monocytes % (A) 20.9 %; NRBC Per 100 WBC 0 X 10*3/uL (0.00-0.01); Neutrophils # (A) 3.07 X 10*3/uL (1.80-7.70); Neutrophils % (A) 54.3 %; Platelet Count 164 X 10*3/uL (140-440); RBC 4.18 X 10*6/uL (4.40-5.60); WBC 5.65 X 10*3/uL (4.50-10.00)
[2023-04-24 11:47] LABS: BUN/Creat Ratio 8.57 Ratio (12.00-20.00); Calcium 8.1 mg/dL (8.7-10.3); Carbon Dioxide 26.9 mmol/L (21.6-31.8); Chloride 102 mmol/L (96-109); Glucose 100 mg/dL (70-110); Potassium 3.4 mmol/L (3.5-5.5); Sodium 139 mmol/L (135-145)
[2023-04-24] MEDS: POTASSIUM CHLORIDE 10 MEQ in WATER FOR INJECTION 1 100ML.BAG IVPB SCH ×2 (12:54→14:36)
[2023-04-24] MEDS: HYDROcodone/APAP 5-325MG 1 EACH TAB PEG/G-TUBE PRN (14:00)
--- NOTE | 2023-04-24 18:37 | P.PN ---
Subjective Progress Note Date: 04/24/23 67-year-old male with a past medical history of esophageal cancer diagnosed in January 2023 currently undergoing radiation and prior history of smoking presents to ER with complaints of worsening pain. Patient is complaining of generalized pain, abdominal pain, chest pain and back pain and generalized weakness. Patient is having poorly intake and is only taking liquids. Patient states that he had radiation done yesterday and is scheduled for again on Wednesday. Presented to ER due to worsening cancer related pain. No complaints of fever or chills. No cough or sputum production. No headache or dizziness or lightheadedness. Denies any dysuria. Chest x-ray showed borderline heart size. Chronic appearing changes. No definite acute process. KUB x-ray showed the single provided MAC center at the upper abdomen. The remainder of the abdominal pelvis is not exacerbated there is moderate stool b urden. Overall nonobstructive bowel gas pattern. No free air is seen. Status postcholecystectomy. Laboratory showed WBC 4.5 hemoglobin 14.1 platelets 227 Sodium 143 potassium 5.3 chloride 105 bicarb is 30 BUN 14 and creatinine 0.57, troponin x1 negative proBNP 101 and albumin 3.3. Liver enzymes are not elevated. 04/24/2023 Patient is seen and evaluated in room at bedside; discussed with nursing staff; no specific complaints reported; patient remains nothing by mouth Vital signs are reviewed and stable with temperature of 98, respiration 18 and blood pressure 114/66 Laboratory review shows WBC of 5.6, hemoglobin 12.7 and platelet count of 164, sodium 139, potassium 3.4, BUN/creatinine of 6.0/0.7 Patient is status post PEG tube replacement; 2 feedings remain on hold; general surgery following Objective - Vital Signs Vital signs: Vital Signs Temp 98.1 F 04/24/23 07:12 Pulse 78 04/24/23 07:12 Resp 19 04/24/23 07:12 BP 114/67 04/24/23 07:12 Pulse Ox 94 L 04/24/23 07:12 FiO2 Intake & Output 04/23/23 04/24/23 04/24/23 18:59 06:59 18:59 Intake Total 720 1620 240 Output Total 865 390 50 Balance -145 1230 190 Weight 90.809 kg 90.99 kg Intake: Intake, IV Titration 900 Amount Dextrose 5%-0.45% NaCl 1, 900 000 ml @ 75 mls/hr IV . [id number] [facility] Rx#:[id number] Oral 720 720 240 Output: Drainage 690 Abdomen 690 Urine 175 390 50 Other: Voiding Method Toilet Toilet Diaper Diaper # Voids 1 - Exam Patient is lying in the bed., awake alert and oriented.., Appears older than stated age, well-developed, obese HEENT: Normocephalic. Neck is supple. Pupils reactive. Nostrils clear. Oral cavity is moist. Neck reveals no JVD, carotid bruits, or thyromegaly. CHEST EXAMINATION: Trachea is central. Symmetrical expansion. Lung murray clear to auscultation and percussion. CARDIAC: Normal S1, S2 with no gallops. No murmurs ABDOMEN: Soft. Bowel sounds present. Abdomen is distended.. Epigastric tenderness. PEG tube site intact. No discharge. No guarding or rigidity. No organomegaly. No abdominal bruits. Extremities: reveal no edema. No clubbing or cyanosis Neurologically awake, alert, oriented x3 with well-coordinated movements. No focal deficits noted, diffusely weak Skin: No rash or skin lesions. Psychiatric: Cooperative. Non-suicidal, Musculoskeletal: No joint swelling or deformity. - Labs CBC & Chem 7: 04/24/23 04:36 04/24/23 04:36 Labs: Abnormal Lab Results - Last 24 Hours (Table) 04/24/23 04/24/23 Range/Units 04:36 04:36 RBC 4.18 L (4.40-5.60) X 10*6/uL Hgb 12.7 L (13.0-17.0) g/dL RDW 15.0 H (11.5-14.5) % MPV 13.5 H (9.5-12.2) FL Monocytes # 1.18 H (0.20-1.00) X 10*3/uL Potassium 3.4 L (3.5-5.5) mmol/L BUN 6.0 L (9.0-27.0) mg/dL BUN/Creatinine Ratio 8.57 L (12.00-20.00) Ratio Calcium 8.1 L (8.7-10.3) mg/dL Assessment and Plan Assessment: Worsening malignancy related pain PEG tube malfunction. Status post replacement. Esophageal cancer diagnosed in January 2023. Currently undergoing radiation therapy. Mild hyperkalemia Constipation and moderate stool burden as per abdominal x-ray severe protein calorie malnutrition. History of smoking DVT prophylaxis Lovenox subcu GI prophylaxis Full code Plan: Patient underwent small bowel follow-through with no blockage noted. Patient reports is having bowel movements Patient will be continued on IV hydration with D5 half-normal saline. Continue with IV Dilaudid 1 mg every 3 as needed for pain and also continue with long-acting morphine 60 mg twice daily. Symptomatic management for nausea Patient continues with significant weakness and will need PT/OT therapy evaluation. Patient management following working on possible ECF Patient currently nothing by mouth. Surgery has evaluated the patient recommending starting tube feedings this evening at 10 and monitoring for tolerance and any residual and worsening abdominal pain Ultrasound of the abdomen was done but there is not enough fluid to be drained as per IR. Continue stool softeners and bowel regimen.
[2023-04-24] MEDS: ALPRAZolam 0.5 MG TAB PO PRN (20:22)
[2023-04-25] MEDS: DEXTROSE 5%-0.45% NACL 1,000 ML IV SCH ×3 (01:30→20:13)
[2023-04-25] MEDS: ONDANSETRON 4 MG/2 ML VIAL IVP PRN (02:33)
[2023-04-25] MEDS: SENNOSIDES 8.6 MG TAB PO SCH ×2 (08:24→20:13)
[2023-04-25] MEDS: MORPHINE SULFATE ER 30 MG TABLET PO SCH ×2 (08:24→20:13)
[2023-04-25] MEDS: ENOXAPARIN 40 MG/0.4 ML SYRINGE SQ SCH (08:24)
[2023-04-25] MEDS: METOCLOPRAMIDE 10 MG TAB PO SCH ×4 (08:25→20:13)
[2023-04-25] MEDS: polyethylene glycoL 3350 17 GM POWD.PACK PO SCH (08:25)
[2023-04-25 10:13] LABS: Blood Urea Nitrogen 5.4 mg/dL (9.0-27.0); Carbon Dioxide 27.7 mmol/L (21.6-31.8); Chloride 102 mmol/L (96-109); Glucose 102 mg/dL (70-110); Potassium 3.6 mmol/L (3.5-5.5); Sodium 139 mmol/L (135-145)
[2023-04-25 10:47] LABS: Basophils # (A) 0.04 X 10*3/uL (0.00-0.10); Basophils % (A) 0.7 %; Eosinophils # (A) 0.07 X 10*3/uL (0.04-0.35); Eosinophils % (A) 1.2 %; HCT 41.4 % (39.6-50.0); HGB 13.1 g/dL (13.0-17.0); Lymphocytes # (A) 1.37 X 10*3/uL (0.90-5.00); MCHC 31.6 g/dL (32.0-37.0); Mean Platelet Volume 13.2 FL (9.5-12.2); Monocytes # (A) 1.14 X 10*3/uL (0.20-1.00); Monocytes % (A) 19.1 %; NRBC Per 100 WBC 0 X 10*3/uL (0.00-0.01); Neutrophils # (A) 3.32 X 10*3/uL (1.80-7.70); Neutrophils % (A) 55.7 %; Platelet Count 160 X 10*3/uL (140-440); RBC 4.36 X 10*6/uL (4.40-5.60); RBC Morphology Normal (Normal); RDW 14.9 % (11.5-14.5); WBC 5.96 X 10*3/uL (4.50-10.00)
[2023-04-25] MEDS: HYDROcodone/APAP 5-325MG 1 EACH TAB PEG/G-TUBE PRN (11:16)
[2023-04-25] MEDS: HYDROmorphone 1 MG/ML 1 ML SYRINGE IVP PRN (14:19)
--- NOTE | 2023-04-25 17:10 | P.PN ---
Subjective Progress Note Date: 04/25/23 67-year-old male with a past medical history of esophageal cancer diagnosed in January 2023 currently undergoing radiation and prior history of smoking presents to ER with complaints of worsening pain. Patient is complaining of generalized pain, abdominal pain, chest pain and back pain and generalized weakness. Patient is having poorly intake and is only taking liquids. Patient states that he had radiation done yesterday and is scheduled for again on Wednesday. Presented to ER due to worsening cancer related pain. No complaints of fever or chills. No cough or sputum production. No headache or dizziness or lightheadedness. Denies any dysuria. Chest x-ray showed borderline heart size. Chronic appearing changes. No definite acute process. KUB x-ray showed the single provided MAC center at the upper abdomen. The remainder of the abdominal pelvis is not exacerbated there is moderate stool b urden. Overall nonobstructive bowel gas pattern. No free air is seen. Status postcholecystectomy. Laboratory showed WBC 4.5 hemoglobin 14.1 platelets 227 Sodium 143 potassium 5.3 chloride 105 bicarb is 30 BUN 14 and creatinine 0.57, troponin x1 negative proBNP 101 and albumin 3.3. Liver enzymes are not elevated. 04/24/2023 Patient is seen and evaluated in room at bedside; discussed with nursing staff; no specific complaints reported; patient remains nothing by mouth Vital signs are reviewed and stable with temperature of 98, respiration 18 and blood pressure 114/66 Laboratory review shows WBC of 5.6, hemoglobin 12.7 and platelet count of 164, sodium 139, potassium 3.4, BUN/creatinine of 6.0/0.7 Patient is status post PEG tube replacement; 2 feedings remain on hold; general surgery following 04/25/2023 Patient is seen and evaluated discussed with nursing staff; no specific complaints reported Vital signs are reviewed, temperature of 98.7, pulse of 77, respiration 18 and blood pressure of 121/74, O2 saturation 98% on room air Lab review shows a WBC of 5.9, hemoglobin of 13.1 and platelet count of 160, sodium 139, potassium 3.6, BUN/creatinine of 5.4/0.6 General surgery on board and recommending to keep patient nothing by mouth and 2 feedings remain on hold Objective - Vital Signs Vital signs: Vital Signs Temp 98 F 04/25/23 07:35 Pulse 81 04/25/23 07:35 Resp 19 04/25/23 07:35 BP 121/74 04/25/23 07:35 Pulse Ox 98 04/25/23 07:35 FiO2 Intake & Output 04/24/23 04/25/23 04/25/23 18:59 06:59 18:59 Intake Total 240 1260 Output Total 350 175 Balance -110 1085 Weight 91.2 kg Intake: Intake, IV Titration 900 Amount Dextrose 5%-0.45% NaCl 1, 900 000 ml @ 75 mls/hr IV . [id number] [facility] Rx#:[id number] Oral 240 360 Output: Urine 350 175 Other: Voiding Method Toilet Diaper # Bowel Movements 1 - Exam Patient is lying in the bed., awake alert and oriented.., Appears older than stated age, well-developed, obese HEENT: Normocephalic. Neck is supple. Pupils reactive. Nostrils clear. Oral cavity is moist. Neck reveals no JVD, carotid bruits, or thyromegaly. CHEST EXAMINATION: Trachea is central. Symmetrical expansion. Lung murray clear to auscultation and percussion. CARDIAC: Normal S1, S2 with no gallops. No murmurs ABDOMEN: Soft. Bowel sounds present. Abdomen is distended.. Epigastric tenderness. PEG tube site intact. No discharge. No guarding or rigidity. No organomegaly. No abdominal bruits. Extremities: reveal no edema. No clubbing or cyanosis Neurologically awake, alert, oriented x3 with well-coordinated movements. No focal deficits noted, diffusely weak Skin: No rash or skin lesions. Psychiatric: Cooperative. Non-suicidal, Musculoskeletal: No joint swelling or deformity. - Labs CBC & Chem 7: 04/25/23 04:36 04/25/23 04:36 Labs: Abnormal Lab Results - Last 24 Hours (Table) 04/25/23 04/25/23 Range/Units 04:36 04:36 RBC 4.36 L (4.40-5.60) X 10*6/uL MCHC 31.6 L (32.0-37.0) g/dL RDW 14.9 H (11.5-14.5) % MPV 13.2 H (9.5-12.2) FL Monocytes # 1.14 H (0.20-1.00) X 10*3/uL BUN 5.4 L (9.0-27.0) mg/dL BUN/Creatinine Ratio 9.00 L (12.00-20.00) Ratio Calcium 8.0 L (8.7-10.3) mg/dL Assessment and Plan Assessment: Worsening malignancy related pain PEG tube malfunction. Status post replacement. Esophageal cancer diagnosed in January 2023. Currently undergoing radiation therapy. Mild hyperkalemia Constipation and moderate stool burden as per abdominal x-ray severe protein calorie malnutrition. History of smoking DVT prophylaxis Lovenox subcu GI prophylaxis Full code Plan: Patient underwent small bowel follow-through with no blockage noted. Patient reports is having bowel movements Patient will be continued on IV hydration with D5 half-normal saline. Continue with IV Dilaudid 1 mg every 3 as needed for pain and also continue with long-acting morphine 60 mg twice daily. Symptomatic management for nausea Patient continues with significant weakness and will need PT/OT therapy evaluation. Patient management following working on possible ECF Patient currently nothing by mouth. Surgery has evaluated the patient recommending starting tube feedings this evening at 10 and monitoring for tolerance and any residual and worsening abdominal pain Ultrasound of the abdomen was done but there is not enough fluid to be drained as per IR. Continue stool softeners and bowel regimen.
[2023-04-25] MEDS: ALPRAZolam 0.5 MG TAB PO PRN (20:13)
[2023-04-26] MEDS: HYDROcodone/APAP 5-325MG 1 EACH TAB PEG/G-TUBE PRN (00:10)
[2023-04-26] MEDS: HYDROmorphone 1 MG/ML 1 ML SYRINGE IVP PRN ×2 (05:43→21:49)
[2023-04-26] MEDS: SENNOSIDES 8.6 MG TAB PO SCH ×2 (08:35→20:11)
[2023-04-26] MEDS: METOCLOPRAMIDE 10 MG TAB PO SCH ×4 (08:35→20:11)
[2023-04-26] MEDS: MORPHINE SULFATE ER 30 MG TABLET PO SCH ×2 (08:35→20:11)
[2023-04-26] MEDS: ENOXAPARIN 40 MG/0.4 ML SYRINGE SQ SCH (08:36)
[2023-04-26] MEDS: polyethylene glycoL 3350 17 GM POWD.PACK PO SCH (08:37)
[2023-04-26 11:01] LABS: Basophils # (A) 0.03 X 10*3/uL (0.00-0.10); Basophils % (A) 0.4 %; Eosinophils # (A) 0.04 X 10*3/uL (0.04-0.35); Eosinophils % (A) 0.6 %; HCT 42.2 % (39.6-50.0); HGB 13.5 g/dL (13.0-17.0); Lymphocytes % (A) 18.9 %; MCH 29.9 pg (27.0-32.0); MCV 93.6 FL (80.0-97.0); Mean Platelet Volume 12.5 FL (9.5-12.2); Monocytes # (A) 1.09 X 10*3/uL (0.20-1.00); Monocytes % (A) 15.8 %; NRBC Per 100 WBC 0 X 10*3/uL (0.00-0.01); Neutrophils # (A) 4.41 X 10*3/uL (1.80-7.70); Platelet Count 169 X 10*3/uL (140-440); RBC 4.51 X 10*6/uL (4.40-5.60); WBC 6.89 X 10*3/uL (4.50-10.00)
[2023-04-26 11:21] LABS: BUN/Creat Ratio 8.17 Ratio (12.00-20.00); Blood Urea Nitrogen 4.9 mg/dL (9.0-27.0); Calcium 8.4 mg/dL (8.7-10.3); Carbon Dioxide 26.2 mmol/L (21.6-31.8); Chloride 100 mmol/L (96-109); Glucose 92 mg/dL (70-110); Potassium 3.8 mmol/L (3.5-5.5); Sodium 140 mmol/L (135-145)
[2023-04-26] MEDS: DEXTROSE 5%-0.45% NACL 1,000 ML IV SCH (12:14)
[2023-04-26] MEDS: LORazepam 2 MG/ML INJ IV PRN ×2 (14:34→21:05)
[2023-04-26 15:14] VITALS: BMI 30.2
[2023-04-26] MEDS: ALPRAZolam 0.5 MG TAB PO PRN (16:42)
--- NOTE | 2023-04-26 19:02 | P.PN ---
Subjective Progress Note Date: 04/26/23 Patient is a 67-year-old male with a past medical history of esophageal cancer diagnosed in January 2023 currently undergoing radiation and prior history of smoking presents to ER with complaints of worsening pain. Patient is complaining of generalized pain, abdominal pain, chest pain and back pain and generalized weakness. Patient is having poorly intake and is only taking liquids. Patient states that he had radiation done yesterday and is scheduled for again on Wednesday. Presented to ER due to worsening cancer related pain. No complaints of fever or chills. No cough or sputum production. No headache or dizziness or lightheadedness. Denies any dysuria. Chest x-ray showed borderline heart size. Chronic appearing changes. No definite acute process. KUB x-ray showed the single provided MAC center at the upper abdomen. The remainder of the abdominal pelvis is not exacerbated there is moderate stool burden. Overall nonobstructive bowel gas pattern. No free air is seen. Status postcholecystectomy. Laboratory showed WBC 4.5 hemoglobin 14.1 platelets 227 Sodium 143 potassium 5.3 chloride 105 bicarb is 30 BUN 14 and creatinine 0.57, troponin x1 negative proBNP 101 and albumin 3.3. Liver enzymes are not elevated. 04/17/2023 Patient is currently lying in the bed. Awake alert and oriented x3. Pain is fairly controlled with medications. Otherwise patient was noted to have PEG tu be malfunction and also abdominal is distended. CT of the abdomen pelvis was ordered and general surgery was consulted for PEG tube replacement. Currently being continued IV hydration with D5 half-normal saline. Patient denies any chest pain or shortness of breath. No headache or dizziness or lightheadedness. Laboratory data showed WBC 4.5 hemoglobin 14.2 and platelets 227 Sodium 142, potassium 3.8 chloride 107 bicarb is 27 BUN 13 and creatinine 0.54 and blood sugar is 118 and albumin 3.0. Oncology is on board. 04/18/2023 Patient is currently lying in bed. Awake alert and oriented x3. S/p replacement of PEG tube by general surgery. CT of the abdomen pelvis showed hepatic cirrhosis suggesting with moderate ascites. Findings suggestive of hepatic colopathy. PEG tube inflatable cuff wi thin the subcutaneous tissue of the abdominal wall. Intermediate sclerotic foci in L3 and T12 correlate for history of malignancy. New from 02/10/2023. Laboratory showed WBC 4.4 hemoglobin 13.0 and platelets 211 BUN 9 and creatinine 0.62 and blood sugar 90. Calcium 8.1. Patient was started on tube feeding tomorrow once cleared by general surgery. 04/19/2023 Patient is currently lying in bed. Awake alert and oriented x3. Status post PEG tube replacement. POD 1 Denies any complaints of chest pain or shortness of breath still complains of abdominal pain. Ultrasound of the abdomen was done but there is not enough fluid to be drained as per IR. Patient has been afebrile. No cough or sputum production. Laboratory data showed sodium 142 potassium 3.6 chloride 104 BUN 6.1 and creatinine 0.5. Currently PEG tube is draining to Murray catheter with bilious discharge. Patient currently nothing by mouth. 04/20/2023 Patient is currently lying in bed. Awake alert and oriented x3. Currently no thing by mouth. Status post PEG tube replacement. Postoperative day 2. Patient is undergoing small bowel follow-through. No complaints of chest pain or shortness of breath. No cough or sputum produc tion. Afebrile. Laboratory showed WBC 3.1 hemoglobin 13.4 and platelets 181. 04/22/2023 Patient is seen and evaluated in follow-up today being followed by general surgery. Plan was for restarting PEG tube feedings and awaiting surgeon recommendations as there was some noted drainage around the PEG tube. Per Dr. Sadler patient okay to start tube feedings at a low rate and monitor. Patient reports to having some nausea with no vomiting noted. Patient also continues with significant weakness in case management is following looking into possibly ECF. Patient is currently afebrile with no reported chest pain or shortness of breath. Patient is maintained on gentle IV hydration and a.m. labs are pending. 04/24/2023 Patient is seen and evaluated in room at bedside; discussed with nursing staff; no specific complaints reported; patient remains nothing by mouth Vital signs are reviewed and stable with temperature of 98, respiration 18 and blood pressure 114/66 Laboratory review shows WBC of 5.6, hemoglobin 12.7 and platelet count of 164, sodium 139, potassium 3.4, BUN/creatinine of 6.0/0.7 Patient is status post PEG tube replacement; 2 feedings remain on hold; general surgery following 04/25/2023 Patient is seen and evaluated discussed with nursing staff; no specific complaints reported Vital signs are reviewed, temperature of 98.7, pulse of 77, respiration 18 and blood pressure of 121/74, O2 saturation 98% on room air Lab review shows a WBC of 5.9, hemoglobin of 13.1 and platelet count of 160, sodium 139, potassium 3.6, BUN/creatinine of 5.4/0.6 General surgery on board and recommending to keep patient nothing by mouth and 2 feedings remain on hold 04/26/2023 Patient is seen in follow-up today and general surgery was following for replacement PEG tube and there continues to be large amount of bilious drainage noted and surgery had recommended no tube feeds and possible other means of nutrition. Surgery has signed off. Patient per nursing staff is able to tole rate oral pills and water but has not been having any oral intake other than IV fluids. Oncology following as well although patient receives oncological care out of [facility]. Plan initially was for possible rehab and [facility] reviewing and there was talk of potential TPN but unable to manage in the outpatient setting. Further discussed with patient and family about CODE STATUS and patient wishes to be no code and also addressed possible hospice and they are agreeable for informational. Plan is for possible hospice house. Patient is requesting food and family bringing in. Discussed high risk for complications including choking and non-tolerating along with aspiration and worsening abdominal pain. Review of systems: Constitutional: reports of fatigue, no fever, or chills Cardiovascular: No reports of chest pain or palpitations Respiratory: No reports of shortness of breath or cough GI: No reports of nausea, no vomiting, or diarrhea, reports mild abdominal discomfort at times although managed : No reports of dysuria or retention Neurovascular: reports of generalized weakness and patient also reports not eating All medications have been reviewed Physical exam: Patient is lying in the bed., awake alert and oriented.., Appears older than stated age, well-developed, obese HEENT: Normocephalic. Neck is supple. Pupils reactive. Nostrils clear. Oral cavity is moist. Neck reveals no JVD, carotid bruits, or thyromegaly. CHEST EXAMINATION: Trachea is central. Symmetrical expansion. Lung murray clear to auscultation and percussion. CARDIAC: Normal S1, S2 with no gallops. No murmurs ABDOMEN: Soft. Bowel sounds present. Abdomen is distended.. Epigastric tende rness. PEG tube site intact with bilious drainage noted. No guarding or rigidity. No organomegaly. No abdominal bruits. Extremities: reveal no edema. No clubbing or cyanosis Neurologically awake, alert, oriented x3 with well-coordinated movements. No focal deficits noted, diffusely weak Skin: No rash or skin lesions. Psychiatric: Cooperative. Non-suicidal Musculoskeletal: No joint swelling or deformity. Assessment: Worsening malignancy related pain PEG tube malfunction. Status post replacement. Esophageal cancer diagnosed in January 2023. Currently undergoing radiation therapy at [facility]. Mild hyperkalemia, improved Constipation and moderate stool burden as per abdominal x-ray, improved having bowel movements severe protein calorie malnutrition secondary to no oral intake. History of smoking DVT prophylaxis Lovenox subcu GI prophylaxis No code Plan: Patient underwent small bowel follow-through with no blockage noted. Patient reports is having bowel movements Patient will be continued on IV hydration with D5 half-normal saline. Continue with IV Dilaudid 1 mg every 3 as needed for pain and also continue with long-acting morphine 60 mg twice daily. Symptomatic management for nausea. Patient reports improvement in nausea Patient continues with significant weakness and had PT/OT recommending ECF CODE STATUS was addressed with patient and family and patient wishes to be no code. Other options including hospice discussed as well and patient and family agreeable with informational hospice. Possible hospice house being considered. Patient currently nothing by mouth. Surgery has evaluated the patient recommending no further tube feedings as patient continues to have increased bilious drainage and will not tolerate tube feeds and also discussed possible TPN although rehab unable to continue with TPN in the outpatient setting. Patient and family requesting food as patient has been able to tolerate water with no swallowing difficulties and oral medication. Recommend small chopped dysphasia pleasure foods and aspiration precautions. Plan is for possible hospice house and financials need to be assessed. Possible discharge planning in the next 24 hours The impression and plan of care has been dictated by Esther Nava, Nurse Rita espinosa as directed. Dr. Popeye MD I have performed a history and examination and MDM of this patient, discussed the same with the dictator, and agree with the dictator's assessment and plan as written ,documented as a scribe. Based on total visit time, I have performed more than 50% of the visit. Objective - Vital Signs Vital signs: Vital Signs Temp 98.9 F 04/26/23 07:46 Pulse 82 04/26/23 07:46 Resp 18 04/26/23 07:46 BP 128/65 04/26/23 07:46 Pulse Ox 94 L 04/26/23 07:46 FiO2 Intake & Output 04/25/23 04/26/23 04/26/23 18:59 06:59 18:59 Output Total 700 850 25 Balance -700 -850 -25 Weight 90.3 kg Output: Drainage 700 650 Abdomen 700 650 Urine 200 25 Other: Voiding Method Toilet Urinal # Voids 1 - Labs CBC & Chem 7: 04/26/23 06:39 04/26/23 06:39 Labs: Abnormal Lab Results - Last 24 Hours (Table) 04/25/23 Range/Units 04:36 RBC 4.36 L (4.40-5.60) X 10*6/uL MCHC 31.6 L (32.0-37.0) g/dL RDW 14.9 H (11.5-14.5) % MPV 13.2 H (9.5-12.2) FL Monocytes # 1.14 H (0.20-1.00) X 10*3/uL
--- NOTE | 2023-04-26 19:38 | P.PN ---
Subjective Progress Note Date: 04/26/23 Principal diagnosis: Bowel dysmotility 2/2 malignancy In f/u today pt is managing secretions, he can suck on hard candy and take most of his pills. His abd is bloated and uncomfortable. He and his son at bedside were discussing how pt wants to proceed. Objective - Vital Signs Vital signs: Vital Signs Temp 98.2 F 04/26/23 14:04 Pulse 78 04/26/23 14:04 Resp 18 04/26/23 14:04 BP 125/78 04/26/23 14:04 Pulse Ox 97 04/26/23 14:04 FiO2 Intake & Output 04/26/23 04/26/23 04/27/23 06:59 18:59 06:59 Intake Total 658 Output Total 850 925 Balance -850 -267 Weight 90.3 kg 90.3 kg Intake: Oral 658 Output: Gastric Drainage 300 Drainage 650 500 Abdomen 650 500 Urine 200 125 Other: Voiding Method Toilet Urinal # Voids 2 - Constitutional General appearance: Present: average body habitus, cooperative, no acute distress - EENT Eyes: Present: anicteric sclerae, EOMI ENT: Present: hearing grossly normal - Respiratory Details: resp even and unlabored at rest - Cardiovascular Details: skin warm and dry to touch - Gastrointestinal Gastrointestinal Comment(s): PEG tube attached to drainage bag, some air noted, no drainage at this time General gastrointestinal: Present: distended - Neurologic Neurologic: Present: CNII-XII intact - Musculoskeletal Musculoskeletal: Present: generalized weakness - Psychiatric Psychiatric: Present: A&O x's 3, appropriate affect, intact judgment & insight - Labs CBC & Chem 7: 04/26/23 06:39 04/26/23 06:39 Labs: Abnormal Lab Results - Last 24 Hours (Table) 04/26/23 04/26/23 Range/Units 06:39 06:39 RDW 15.0 H (11.5-14.5) % MPV 12.5 H (9.5-12.2) FL Monocytes # 1.09 H (0.20-1.00) X 10*3/uL Anion Gap 13.80 H (4.00-12.00) mmol/L BUN 4.9 L (9.0-27.0) mg/dL BUN/Creatinine Ratio 8.17 L (12.00-20.00) Ratio Calcium 8.4 L (8.7-10.3) mg/dL Assessment and Plan (1) Peritoneal carcinomatosis Current Visit: Yes Status: Acute Priority: High Code(s): C78.6 - SECONDARY MALIGNANT NEOPLASM OF RETROPERITON AND PERITONEUM SNOMED Code(s): 769784621 (2) Cancer associated pain Current Visit: Yes Status: Acute Priority: High Code(s): G89.3 - NEOPLASM RELATED PAIN (ACUTE) (CHRONIC) SNOMED Code(s): 50850386106883 (3) Esophageal cancer, stage IV Current Visit: Yes Status: Acute Priority: High Code(s): C15.9 - MALIGNANT NEOPLASM OF ESOPHAGUS, UNSPECIFIED SNOMED Code(s): 345296830 (4) PEG tube malfunction Current Visit: Yes Status: Acute Priority: High Code(s): K94.23 - GASTROSTOMY MALFUNCTION SNOMED Code(s): 938025692 Plan: 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 Pt and son are painfully aware that without the ability to eat and drink he will not be able to tolerate further cancer treatment. -Pt and son are interested in more info about Hospice house, order has been placed for informational session -Abd pain and distension 2/2 to above. Cont current analgesic regimen, adjust accordingly -Will f/u with pt and family to see if there are any additional questions or concerns once they have info on hospice care. Time with Patient: Greater than 30 (counseling and coordinating care)
--- NOTE | 2023-04-26 21:11 | XR ---
EXAMINATION TYPE: XR pelvis AP view DATE OF EXAM: 04/26/2023 9:05 PM CLINICAL INDICATION:Male, 67 years old with history of pain from fall; [facility] COMPARISON: CT abdomen pelvis 04/17/2023 TECHNIQUE: The pelvis was examined in a single projection. FINDINGS: There is no evidence of fracture or dislocation. There is no soft tissue abnormality. No a bnormal calcifications are present. The spine appears intact. Multilevel degeneration changes of the spine. Oral contrast extending to the rectum. IMPRESSION: No acute osseous pathology.
[2023-04-27] MEDS: DEXTROSE 5%-0.45% NACL 1,000 ML IV SCH ×2 (01:31→14:23)
[2023-04-27] MEDS: HYDROmorphone 1 MG/ML 1 ML SYRINGE IVP PRN ×2 (03:44→20:14)
[2023-04-27] MEDS: METOCLOPRAMIDE 10 MG TAB PO SCH ×4 (09:03→20:05)
[2023-04-27] MEDS: MORPHINE SULFATE ER 30 MG TABLET PO SCH ×2 (09:04→20:05)
[2023-04-27] MEDS: ENOXAPARIN 40 MG/0.4 ML SYRINGE SQ SCH (09:05)
[2023-04-27] MEDS: SENNOSIDES 8.6 MG TAB PO SCH ×2 (10:34→20:06)
[2023-04-27] MEDS: polyethylene glycoL 3350 17 GM POWD.PACK PO SCH (10:34)
[2023-04-27] MEDS: LORazepam 2 MG/ML INJ IV PRN (20:04)
[2023-04-28] MEDS: DEXTROSE 5%-0.45% NACL 1,000 ML IV SCH ×2 (00:54→07:26)
[2023-04-28] MEDS: HYDROmorphone 1 MG/ML 1 ML SYRINGE IVP PRN ×3 (01:07→10:30)
--- NOTE | 2023-04-28 05:47 | P.PN ---
Subjective Progress Note Date: 04/27/23 Patient is a 67-year-old male with a past medical history of esophageal cancer diagnosed in January 2023 currently undergoing radiation and prior history of smoking presents to ER with complaints of worsening pain. Patient is complaining of generalized pain, abdominal pain, chest pain and back pain and generalized weakness. Patient is having poorly intake and is only taking liquids. Patient states that he had radiation done yesterday and is scheduled for again on Wednesday. Presented to ER due to worsening cancer related pain. No complaints of fever or chills. No cough or sputum production. No headache or dizziness or lightheadedness. Denies any dysuria. Chest x-ray showed borderline heart size. Chronic appearing changes. No definite acute process. KUB x-ray showed the single provided MAC center at the upper abdomen. The remainder of the abdominal pelvis is not exacerbated there is moderate stool burden. Overall nonobstructive bowel gas pattern. No free air is seen. Status postcholecystectomy. Laboratory showed WBC 4.5 hemoglobin 14.1 platelets 227 Sodium 143 potassium 5.3 chloride 105 bicarb is 30 BUN 14 and creatinine 0.57, troponin x1 negative proBNP 101 and albumin 3.3. Liver enzymes are not elevated. 04/17/2023 Patient is currently lying in the bed. Awake alert and oriented x3. Pain is fairly controlled with medications. Otherwise patient was noted to have PEG tu be malfunction and also abdominal is distended. CT of the abdomen pelvis was ordered and general surgery was consulted for PEG tube replacement. Currently being continued IV hydration with D5 half-normal saline. Patient denies any chest pain or shortness of breath. No headache or dizziness or lightheadedness. Laboratory data showed WBC 4.5 hemoglobin 14.2 and platelets 227 Sodium 142, potassium 3.8 chloride 107 bicarb is 27 BUN 13 and creatinine 0.54 and blood sugar is 118 and albumin 3.0. Oncology is on board. 04/18/2023 Patient is currently lying in bed. Awake alert and oriented x3. S/p replacement of PEG tube by general surgery. CT of the abdomen pelvis showed hepatic cirrhosis suggesting with moderate ascites. Findings suggestive of hepatic colopathy. PEG tube inflatable cuff wi thin the subcutaneous tissue of the abdominal wall. Intermediate sclerotic foci in L3 and T12 correlate for history of malignancy. New from 02/10/2023. Laboratory showed WBC 4.4 hemoglobin 13.0 and platelets 211 BUN 9 and creatinine 0.62 and blood sugar 90. Calcium 8.1. Patient was started on tube feeding tomorrow once cleared by general surgery. 04/19/2023 Patient is currently lying in bed. Awake alert and oriented x3. Status post PEG tube replacement. POD 1 Denies any complaints of chest pain or shortness of breath still complains of abdominal pain. Ultrasound of the abdomen was done but there is not enough fluid to be drained as per IR. Patient has been afebrile. No cough or sputum production. Laboratory data showed sodium 142 potassium 3.6 chloride 104 BUN 6.1 and creatinine 0.5. Currently PEG tube is draining to Murray catheter with bilious discharge. Patient currently nothing by mouth. 04/20/2023 Patient is currently lying in bed. Awake alert and oriented x3. Currently no thing by mouth. Status post PEG tube replacement. Postoperative day 2. Patient is undergoing small bowel follow-through. No complaints of chest pain or shortness of breath. No cough or sputum produc tion. Afebrile. Laboratory showed WBC 3.1 hemoglobin 13.4 and platelets 181. 04/22/2023 Patient is seen and evaluated in follow-up today being followed by general surgery. Plan was for restarting PEG tube feedings and awaiting surgeon recommendations as there was some noted drainage around the PEG tube. Per Dr. Sadler patient okay to start tube feedings at a low rate and monitor. Patient reports to having some nausea with no vomiting noted. Patient also continues with significant weakness in case management is following looking into possibly ECF. Patient is currently afebrile with no reported chest pain or shortness of breath. Patient is maintained on gentle IV hydration and a.m. labs are pending. 04/24/2023 Patient is seen and evaluated in room at bedside; discussed with nursing staff; no specific complaints reported; patient remains nothing by mouth Vital signs are reviewed and stable with temperature of 98, respiration 18 and blood pressure 114/66 Laboratory review shows WBC of 5.6, hemoglobin 12.7 and platelet count of 164, sodium 139, potassium 3.4, BUN/creatinine of 6.0/0.7 Patient is status post PEG tube replacement; 2 feedings remain on hold; general surgery following 04/25/2023 Patient is seen and evaluated discussed with nursing staff; no specific complaints reported Vital signs are reviewed, temperature of 98.7, pulse of 77, respiration 18 and blood pressure of 121/74, O2 saturation 98% on room air Lab review shows a WBC of 5.9, hemoglobin of 13.1 and platelet count of 160, sodium 139, potassium 3.6, BUN/creatinine of 5.4/0.6 General surgery on board and recommending to keep patient nothing by mouth and 2 feedings remain on hold 04/26/2023 Patient is seen in follow-up today and general surgery was following for replacement PEG tube and there continues to be large amount of bilious drainage noted and surgery had recommended no tube feeds and possible other means of nutrition. Surgery has signed off. Patient per nursing staff is able to tole rate oral pills and water but has not been having any oral intake other than IV fluids. Oncology following as well although patient receives oncological care out of [facility]. Plan initially was for possible rehab and [facility] reviewing and there was talk of potential TPN but unable to manage in the outpatient setting. Further discussed with patient and family about CODE STATUS and patient wishes to be no code and also addressed possible hospice and they are agreeable for informational. Plan is for possible hospice house. Patient is requesting food and family bringing in. Discussed high risk for complications including choking and non-tolerating along with aspiration and worsening abdominal pain. 04/27/2073 Patient is seen in follow-up today continues to have large amount of drainage noted from his PEG tube and continues with some pain although managed on IV pain medications. Patient and family met with [facility] and currently working on financials with possible [facility] which is pending at this time. Patient and family were asking about nutrition patient was evaluated by speech and able to tolerate pured diet. Risks versus benefits were explained regarding high risk for aspiration and possible noncompliance to diet and patient verbalized understanding. Patient reports not much of an appetite also thirsty. Patient was continued on IV hydration although refusing reported making him feel more swollen. Patient is planning on going to hospice house in 24 hours if financials are arranged. Review of systems: Constitutional: reports of fatigue, no fever, or chills Cardiovascular: No reports of chest pain or palpitations Respiratory: No reports of shortness of breath or cough GI: No reports of nausea, no vomiting, or diarrhea, reports mild abdominal discomfort at times although managed : No reports of dysuria or retention Neurovascular: reports of generalized weakness and patient also reports not eating very much although is drinking a little more and tolerating All medications have been reviewed Physical exam: Patient is lying in the bed., awake alert and oriented.., Appears older than stated age, well-developed, obese HEENT: Normocephalic. Neck is supple. Pupils reactive. Nostrils clear. Oral cavity is moist. Neck reveals no JVD, carotid bruits, or thyromegaly. CHEST EXAMINATION: Trachea is central. Symmetrical expansion. Lung murray clear to auscultation and percussion. CARDIAC: Normal S1, S2 with no gallops. No murmurs ABDOMEN: Soft. Bowel sounds present. Abdomen is distended.. Epigastric tenderness. PEG tube site intact with bilious drainage noted and connected to a drainage bag. No guarding or rigidity. No organomegaly. No abdominal bruits. Extremities: reveal no edema. No clubbing or cyanosis Neurologically awake, alert, oriented x3 with well-coordinated movements. No focal deficits noted, diffusely weak Skin: No rash or skin lesions. Psychiatric: Cooperative. Non-suicidal Musculoskeletal: No joint swelling or deformity. Assessment: Worsening malignancy related pain PEG tube malfunction. Status post replacement. Esophageal cancer diagnosed in January 2023. Currently undergoing radiation the [facility] at [facility]. Mild hyperkalemia, improved Constipation and moderate stool burden as per abdominal x-ray, improved having bowel movements severe protein calorie malnutrition secondary to no oral intake. History of smoking DVT prophylaxis Lovenox subcu GI prophylaxis No code Plan: Patient underwent small bowel follow-through with no blockage noted. Patient reports is having bowel movements Patient and family requesting possibly something to eat and speech evaluated the patient and tolerated pured diet. Diet is palliative at this point and patient is high risk for intolerance and is not tolerating tube feeds due to significant drainage noted at the PEG tube site from the abdomen. Surgery recommends no tube feeds Continue with IV Dilaudid 1 mg every 3 as needed for pain and also continue with long-acting morphine 60 mg twice daily. Symptomatic management for nausea. Patient reports improvement in nausea CODE STATUS was addressed with patient and family and patient wishes to be no code. Other options including hospice discussed as well and patient and family agreeable with informational hospice. Patient and family met with [facility] with plans on going to the hospice house currently awaiting financials to be finalized Overall prognosis is poor. Possible discharge planning in the next 24 hours The impression and plan of care has been dictated by Esther Nava, Nurse Practitioner as directed. Dr. Popeye MD I have performed a history and examination and MDM of this patient, discussed the same with the dictator, and agree with the dictator's assessment and plan as written ,documented as a scribe. Based on total visit time, I have performed more than 50% of the visit. Objective - Vital Signs Vital signs: Vital Signs Temp 98.3 F 04/28/23 01:09 Pulse 87 04/28/23 01:09 Resp 16 04/28/23 01:09 BP 100/62 04/28/23 01:09 Pulse Ox 91 L 04/28/23 01:09 FiO2 Intake & Output 04/27/23 04/27/23 04/28/23 06:59 18:59 06:59 Output Total 100 975 Balance -100 -975 Output: Gastric Drainage 675 Urine 100 300 Other: Voiding Method Toilet Toilet Toilet Urinal Urinal Urinal - Labs CBC & Chem 7: 04/26/23 06:39 04/26/23 06:39
[2023-04-28] MEDS: SENNOSIDES 8.6 MG TAB PO SCH (07:26)
[2023-04-28] MEDS: polyethylene glycoL 3350 17 GM POWD.PACK PO SCH (07:26)
[2023-04-28 08:01] VITALS: BP 121/76; PULSE 91; RESP 14; TEMP 97.8
[2023-04-28] MEDS: MORPHINE SULFATE ER 30 MG TABLET PO SCH (08:29)
[2023-04-28] MEDS: ENOXAPARIN 40 MG/0.4 ML SYRINGE SQ SCH (08:29)
[2023-04-28] MEDS: METOCLOPRAMIDE 10 MG TAB PO SCH (08:29)
--- NOTE | 2023-04-28 09:30 | P.DS ---
Providers Date of admission: 04/19/23 10:37 Expected date of discharge: 04/28/23 Attending physician: Gianna Nye Consults: 04/16/23 21:43 Consult Physician Routine Consulting Provider: Jarrett Rojas Consult Reason/Comments: esophageal CA Do you want consulting provider notified?: Yes, Notify in am Primary care physician: Riley Quinn Hospital Course: Final diagnosis Worsening malignancy related pain PEG tube malfunction. Status post replacement. With continuing malfunction and only output drainage noted unable to tolerate tube feeds Esophageal cancer diagnosed in January 2023. Was undergoing radiation therapy at [facility]. Mild hyperkalemia, improved Constipation and moderate stool burden as per abdominal x-ray, improved having bowel movements severe protein calorie malnutrition secondary to no oral intake. History of smoking DVT prophylaxis GI prophylaxis No code Discharge disposition Patient is being discharged in a stable condition with guarded prognosis to [facility]. Patient will follow-up with Dr. Quinn as needed in the outpatient setting upon discharge. Patient is to continue with pleasure foods with dysphagia pured diet as tolerated. Per surgery recommendations patient to continue with drainage tube from the PEG tube to alleviate fluid overload in the abdomen. Total time taken is greater than 35 minutes. Hospital course This is a 67-year-old male who was recently admitted with increased abdominal pain and worsening pain throughout. Patient was significantly nauseated and had issues with the PEG tube and is status post PEG tube replacement. Patient continues to have copious amounts of biliary drainage from the PEG tube and was evaluated by surgery not recommending any tube feeds. Patient does have extensive esophageal cancer but has been tolerating liquids and taking oral medications. General surgery does not recommend any further surgical interventions and his poor prognosis. Patient to continue on bowel regimen for constipation. Patient was evaluated by speech and okay for palliative pleasure foods pured diet and would recommend aspiration precautions. Patient is high risk for aspiration with concerns of possible esophageal obstruction. Patient and family have met with hospice services and agreeable to [facility] and financials have been arranged and grants approved. Patient will be going to [facility]. Currently no reports of chest pain, shortness of breath, or palpitations. Patient is afebrile. No reports of nausea or vomiting and patient is tolerating diet very little oral intake with pured diet and sips of fluids. Again overall poor prognosis Physical exam: Gen: This is a 67-year-old male who is awake, alert and oriented 3, well- developed, well-nourished, elderly-appearing HEENT: Head is atraumatic, normocephalic. Pupils equal, round. Sclerae is anicteric. NECK: Supple. No JVD. No lymphadenopathy. No thyromegaly. LUNGS: Clear to auscultation. No wheezes or rhonchi. No intercostal retractions. HEART: Regular rate and rhythm. No murmur. ABDOMEN: Soft. Distended. Bowel sounds are present. No masses. No tenderness. EXTREMITIES: No pedal edema. No calf tenderness. NEUROLOGICAL: Patient is awake, alert and oriented x3. Cranial nerves 2 through 12 are grossly intact. Diffusely weak Please refer to medication reconciliation sheet for a list of medications. The impression and plan of care has been dictated by Esther Nava, Nurse Practitioner as directed. Dr. Popeye MD I have performed a history and examination and MDM of this patient, discussed the same with the dictator, and agree with the dictator's assessment and plan as written ,documented as a scribe. Based on total visit time, I have performed more than 50% of the visit. Patient Condition at Discharge: Fair Plan - Discharge Summary Discharge Rx Participant: No New Discharge Prescriptions: New Sennosides [Senokot] 8.6 mg PO BID tab polyethylene glycoL 3350 [Miralax] 17 gm PO DAILY packet Continue ALPRAZolam [Xanax] 0.5 mg PO HS PRN PRN Reason: sleep Metoclopramide [Reglan] 10 mg PO ACHS HYDROcodone/APAP 5-325MG [[place] 5-325] 1 tab PEG/G-TUBE Q6H PRN PRN Reason: Pain Lactulose [Constulose] 20 gm PO BID PRN PRN Reason: Constipation Lidocaine Viscous [Xylocaine Viscous 2%] 15 ml PO AC-TID PRN PRN Reason: Pain Morphine Sulfate [Morphine Sulfate ER] 60 mg PO Q12H oxyCODONE HCL [oxyCODONE HCL (IR)] 10 mg PO Q4H PRN PRN Reason: Pain Discontinued Chemo Infusion (Unknown) 1 dose IV Q14D Discharge Medication List ALPRAZolam [Xanax] 0.5 mg PO HS PRN 04/16/23 [History] HYDROcodone/APAP 5-325MG [C[place] 5-325] 1 tab PEG/G-TUBE Q6H PRN 04/16/23 [History] Lactulose [Constulose] 20 gm PO BID PRN 04/16/23 [History] Lidocaine Viscous [Xylocaine Viscous 2%] 15 ml PO AC-TID PRN 04/16/23 [History] Metoclopramide [Reglan] 10 mg PO ACHS 04/16/23 [History] Morphine Sulfate [Morphine Sulfate ER] 60 mg PO Q12H 04/16/23 [History] oxyCODONE HCL [oxyCODONE HCL (IR)] 10 mg PO Q4H PRN 04/16/23 [History] Sennosides [Senokot] 8.6 mg PO BID tab 04/28/23 [Rx] polyethylene glycoL 3350 [Miralax] 17 gm PO DAILY packet 04/28/23 [Rx] Follow up Appointment(s)/Referral(s): Hospice,General Acute Hospital [REFERRING] - 1 Week Riley Quinn [Primary Care Provider] - 1-2 days Activity/Diet/Wound Care/Special Instructions: Patient is going to [facility] house Pleasure foods with dysphagia pured diet as tolerated Discharge Disposition: OTHER INSTITUTION NOT DEFINED
--- NOTE | 2023-04-28 21:20 | P.PN ---
Subjective Progress Note Date: 04/21/23 Patient is a 67-year-old male with a past medical history of esophageal cancer diagnosed in January 2023 currently undergoing radiation and prior history of smoking presents to ER with complaints of worsening pain. Patient is complaining of generalized pain, abdominal pain, chest pain and back pain and generalized weakness. Patient is having poorly intake and is only taking liquids. Patient states that he had radiation done yesterday and is scheduled for again on Wednesday. Presented to ER due to worsening cancer related pain. No complaints of fever or chills. No cough or sputum production. No headache or dizziness or lightheadedness. Denies any dysuria. Chest x-ray showed borderline heart size. Chronic appearing changes. No definite acute process. KUB x-ray showed the single provided MAC center at the upper abdomen. The remainder of the abdominal pelvis is not exacerbated there is moderate stool burden. Overall nonobstructive bowel gas pattern. No free air is seen. Status postcholecystectomy. Laboratory showed WBC 4.5 hemoglobin 14.1 platelets 227 Sodium 143 potassium 5.3 chloride 105 bicarb is 30 BUN 14 and creatinine 0.57, troponin x1 negative proBNP 101 and albumin 3.3. Liver enzymes are not elevated. 04/17/2023 Patient is currently lying in the bed. Awake alert and oriented x3. Pain is fairly controlled with medications. Otherwise patient was noted to have PEG tube malfunction and also abdominal is distended. CT of the abdomen pelvis was ordered and general surgery was consulted for PEG tube replacement. Currently being continued IV hydration with D5 half-normal saline. Patient denies any chest pain or shortness of breath. No headache or dizziness or lightheadedness. Laboratory data showed WBC 4.5 hemoglobin 14.2 and platelets 227 Sodium 142, potassium 3.8 chloride 107 bicarb is 27 BUN 13 and creatinine 0.54 and blood sugar is 118 and albumin 3.0. Oncology is on board. 04/18/2023 Patient is currently lying in bed. Awake alert and oriented x3. S/p re placement of PEG tube by general surgery. CT of the abdomen pelvis showed hepatic cirrhosis suggesting with moderate ascites. Findings suggestive of hepatic colopathy. PEG tube inflatable cuff within the subcutaneous tissue of the abdominal wall. Intermediate sclerotic foci in L3 and T12 correlate for history of malignancy. New from 02/10/2023. Laboratory showed WBC 4.4 hemoglobin 13.0 and platelets 211 BUN 9 and creatinine 0.62 and blood sugar 90. Calcium 8.1. Patient was started on tube feeding tomorrow once cleared by general surgery. 04/19/2023 Patient is currently lying in bed. Awake alert and oriented x3. Status post PEG tube replacement. POD 1 Denies any complaints of chest pain or shortness of breath still complains of abdominal pain. Ultrasound of the abdomen was done but there is not enough fluid to be drained as per IR. Patient has been afebrile. No cough or sputum production. Laboratory data showed sodium 142 potassium 3.6 chloride 104 BUN 6.1 and creatinine 0.5. Currently PEG tube is draining to Murray catheter with bilious discharge. Patient currently nothing by mouth. 04/20/2023 Patient is currently lying in bed. Awake alert and oriented x3. Currently nothing by mouth. Status post PEG tube replacement. Postoperative day 2. Patient is undergoing small bowel follow-through. No complaints of chest pain or shortness of breath. No cough or sputum production. Afebrile. Laboratory showed WBC 3.1 hemoglobin 13.4 and platelets 181. 04/21/2023 Patient is lying in the bed. Awake alert and oriented x3. No complaints of chest pain. Abdominal pain is controlled with medications. Patient is currently on room air. Patient underwent small bowel follow-through yesterday which showed no evidence of small bowel obstruction. Patient still having significant drainage from the PEG tube. Otherwise patient did have small bowel movement last night and today morning. Patient has been afebrile. General surgery is on board. Laboratory data reviewed. Current medications reviewed. Objective - Vital Signs Vital signs: Vital Signs Temp 97.8 F 04/21/23 12:48 Pulse 93 04/21/23 12:48 Resp 18 04/21/23 12:48 BP 103/75 04/21/23 12:48 Pulse Ox 97 04/21/23 12:48 FiO2 Intake & Output 04/20/23 04/21/23 04/21/23 18:59 06:59 18:59 Intake Total 280 240 Output Total 700 Balance -420 240 Weight 93 kg 89 kg Intake: Oral 280 240 Output: Gastric Drainage 700 Other: Voiding Method Toilet Toilet Diaper Diaper # Voids 1 # Bowel Movements 1 - Exam PHYSICAL EXAMINATION: Patient is lying in the bed. He appears to be in distress due to pain., awake alert and oriented.. HEENT: Normocephalic. Neck is supple. Pupils reactive. Nostrils clear. Oral cavity is moist. Neck reveals no JVD, carotid bruits, or thyromegaly. CHEST EXAMINATION: Trachea is central. Symmetrical expansion. Lung murray clear to auscultation and percussion. CARDIAC: Normal S1, S2 with no gallops. No murmurs ABDOMEN: Soft. Bowel sounds present. Abdominal is distended.. Epigastric tenderness. PEG tube site intact. No discharge. No guarding or rigidity. No organomegaly. No abdominal bruits. Extremities: reveal no edema. No clubbing or cyanosis Neurologically awake, alert, oriented x3 with well-coordinated movements. No focal deficits noted Skin: No rash or skin lesions. Psychiatric: Coperative. Nonsuicidal, Musculoskeletal: No joint swelling or deformity. - Labs CBC & Chem 7: 04/26/23 06:39 04/26/23 06:39 Assessment and Plan Assessment: Worsening malignancy related pain PEG tube malfunction. Status post replacement. Postoperative day 3 Esophageal cancer diagnosed in January 2023. Currently undergoing radiation therapy. Mild hyperkalemia Constipation and moderate stool burden as per abdominal x-ray Moderate to severe protein calorie malnutrition. History of smoking DVT prophylaxis Lovenox subcu Plan: Patient underwent small bowel follow-through yesterday which showed no evidence of small bowel obstruction. Patient still having significant drainage from the PEG tube. Patient will be continued on IV hydration with D5 half-normal saline. Continue with IV Dilaudid 1 mg every 3 as needed for pain and also continue with long-acting morphine 60 mg twice daily. Symptomatic management for nausea Patient currently nothing by mouth. Ultrasound of the abdomen was done but there is not enough fluid to be drained as per IR. Started on stool softeners and bowel regimen. Follow-up CBC and BMP tomorrow. follow-up closely.
--- NOTE | 2023-05-11 15:35 | P.PCN ---
Date of Procedure: 05/11/23 Procedure(s) Performed: PREOPERATIVE DIAGNOSIS: Malfunctioning PEG tube POSTOPERATIVE DIAGNOSIS: Same PROCEDURE: EGD with PEG tube removal and replacement SURGEON: Viktoriya EBL: Minimal ANESTHESIA: Sedation COMPLICATIONS: None OPERATIVE PROCEDURE: The patient was placed in the supine position on the endoscopy table. The patient was sedated per anesthesia that time. The Olympus gastroscope was inserted into the oropharynx and passed under direct visualization to the region of the duodenum. No obstruction was seen. The pylorus was widely patent. The stomach was carefully inspected. The patient had a visible defect in the anterior wall of the antrum. This was the site of previous PEG tube placement. We then removed the previous PEG tube without difficulty. A new 10 mL balloon replacement was placed under direct visualization. The circular bolster was then tightened down. DISPOSITION: Stable to recovery room
== END 2023-04-28 10:57 | disposition hospice, home (50) | DRG 393 ==
LOC: EC 13:43 → 5NMEDONC 17:09 → OBSVTOIN 04-19 10:37
PROVIDERS: ADMIT Hospitalist; ATTEND Hospitalist
PROC: 0DP68UZ Removal of Feeding Device from Stomach, Via Natural or Artificial Opening Endoscopic (ICD-10-PCS; 2023-04-18)
PROC: 0DHA3UZ Insertion of Feeding Device into Jejunum, Percutaneous Approach (ICD-10-PCS; 2023-04-18)
PROC: 3E0G76Z Introduction of Nutritional Substance into Upper GI, Via Natural or Artificial Opening (ICD-10-PCS; principal; 2023-04-18 11:00)
DX: K94.23 Gastrostomy malfunction (principal); E43 Unspecified severe protein-calorie malnutrition; C77.0 Secondary and unspecified malignant neoplasm of lymph nodes of head, face and neck; K56.7 Ileus, unspecified; C15.9 Malignant neoplasm of esophagus, unspecified; C78.6 Secondary malignant neoplasm of retroperitoneum and peritoneum; R18.8 Other ascites; K74.60 Unspecified cirrhosis of liver; K59.00 Constipation, unspecified; G89.3 Neoplasm related pain (acute) (chronic); E87.5 Hyperkalemia; Y73.1 Therapeutic (nonsurgical) and rehabilitative gastroenterology and urology devices associated with adverse incidents; Z51.5 Encounter for palliative care; Z87.891 Personal history of nicotine dependence; Z92.3 Personal history of irradiation; Z68.25 Body mass index [BMI] 25.0-25.9, adult; Z79.891 Long term (current) use of opiate analgesic; Z79.899 Other long term (current) drug therapy; Z92.21 Personal history of antineoplastic chemotherapy; Z91.198 Patient's noncompliance with other medical treatment and regimen for other reason
CPT/HCPCS: 36415; 43246; 71045; 72170; 74018; 74177; 74250; 76705; 80048; 80053; 83735; 83880; 84100; 84484; 85025; 85610; 85730; 93005; 96361; 96374; 99285

== ENCOUNTER 2023-05-15 14:26 | Inpatient (IN) | payer MEDICARE ==
[2023-05-15] MEDS ORDERED: PIPERACILLIN-TAZOBACTAM 3.375 GM in SODIUM CHLORIDE 0.9% 100 ML IVPB STA (15:18)
[2023-05-15] MEDS ORDERED: HYDROmorphone 1 MG/ML 1 ML SYRINGE IVP STA (15:18)
[2023-05-15 16:36] LABS: Basophils % (A) 0 %; Eosinophils # (A) 0.1 k/uL (0-0.7); Eosinophils % (A) 1 %; HCT 48.6 % (39.0-53.0); HGB 15.5 gm/dL (13.0-17.5); Hypochromasia Slight; Lymphocytes # (A) 1.2 k/uL (1.0-4.8); Lymphocytes % (A) 11 %; MCH 30.9 pg (25.0-35.0); MCHC 31.9 g/dL (31.0-37.0); Macrocytosis Slight; Mean Platelet Volume 10.4; Monocytes # (A) 0.7 k/uL (0-1.0); Monocytes % (A) 6 %; Neutrophils # (A) 8.8 k/uL (1.3-7.7); Neutrophils % (A) 80 %; Platelet Count 207 k/uL (150-450); RBC 5.01 m/uL (4.30-5.90); RDW 15.8 % (11.5-15.5)
[2023-05-15 17:13] LABS: ALT 18 U/L (4-49); AST 36 U/L (17-59); African American GFR (CKD) >90 (>60 ml/min/1.73 sqM); Albumin 3.7 g/dL (3.5-5.0); Alkaline Phosphatase 82 U/L (38-126); Anion Gap 15 mmol/L; Blood Urea Nitrogen 25 mg/dL (9-20); Calcium 9.1 mg/dL (8.4-10.2); Carbon Dioxide 26 mmol/L (22-30); Chloride 105 mmol/L (98-107); Glucose 87 mg/dL (74-99); Non-African American GFR(CKD) >90 (>60 ml/min/1.73 sqM); Sodium 146 mmol/L (137-145); Total Bilirubin 0.9 mg/dL (0.2-1.3); Total Protein 7.4 g/dL (6.3-8.2)
[2023-05-15 17:17] LABS: Potassium 4.3 mmol/L (3.5-5.1)
--- NOTE | 2023-05-15 17:20 | XR ---
EXAMINATION TYPE: XR chest 2V DATE OF EXAM: 05/15/2023 COMPARISON: 04/16/2023 INDICATION: PEG tube problem TECHNIQUE: Frontal and lateral views of the chest are obtained. FINDINGS: The heart size is normal. Port is present on the right with the tip in superior vena cava region. The pulmonary vasculature is normal. The lungs are clear. No free air is under the diaphragm. IMPRESSION: 1. No acute pulmonary process.
--- NOTE | 2023-05-15 17:20 | XR ---
EXAMINATION TYPE: XR KUB DATE OF EXAM: 05/15/2023 COMPARISON: 04/20/2023 INDICATION: Losing peg tube TECHNIQUE: Single view abdomen supine view FINDINGS: PEG tube appears to have a normal orientation. No obvious suspicious change is evident. Cholecystecto my clips are in the right upper quadrant. There is a normal bowel gas pattern. Psoas margins are normal. No organomegaly is present. IMPRESSION: 1. Unremarkable Abdomen
--- NOTE | 2023-05-15 17:30 | ED ---
General Adult HPI - General Source: patient, family, RN notes reviewed Mode of arrival: wheelchair Limitations: no limitations <Ayla More - Last Filed: 05/15/23 17:17> <Wilmar Peralta - Last Filed: 05/15/23 20:14> - General Chief complaint: Abdominal Pain Stated complaint: Weakness Time Seen by Provider: 05/15/23 14:59 - History of Present Illness Initial comments: 67-year-old male with a past medical history significant for esophageal cancer presents to the emergency department with a chief complaint of PEG tube problem. Patient reports that he had a PEG tube placed initially at [facility] in March. He had the PEG tube removed it at this facility 04/16/[address] jarvis. He reports that he was discharged to hospice. He reports that he has been in worsening generalized pain with thick green discharge at the site. He denies any known fevers. He has been taking morphine at home without symptomatically improvement. Last bowel movement was one week ago. Hematemesis, melena, hematochezia. Patient reports the "PEG tube is not used for feeding but is used for draining stomach acid." (Ayla More) - Related Data Home Medications Medication Instructions Recorded Confirmed ALPRAZolam [Xanax] 0.5 mg PO HS PRN 04/16/23 04/16/23 HYDROcodone/APAP 5-325MG [[place] 1 tab PEG/G-TUBE Q6H PRN 04/16/23 04/16/23 5-325] Lactulose [Constulose] 20 gm PO BID PRN 04/16/23 04/16/23 Lidocaine Viscous [Xylocaine 15 ml PO AC-TID PRN 04/16/23 04/16/23 Viscous 2%] Metoclopramide [Reglan] 10 mg PO ACHS 04/16/23 04/16/23 Morphine Sulfate [Morphine Sulfate 60 mg PO Q12H 04/16/23 04/16/23 ER] oxyCODONE HCL [oxyCODONE HCL (IR)] 10 mg PO Q4H PRN 04/16/23 04/16/23 Previous Rx's Medication Instructions Recorded Sennosides [Senokot] 8.6 mg PO BID tab 04/28/23 polyethylene glycoL 3350 [Miralax] 17 gm PO DAILY packet 04/28/23 Allergies Allergy/AdvReac Type Severity Reaction Status Date / Time No Known Allergies Allergy Verified 04/16/23 17:50 Review of Systems ROS Other: All systems not noted in ROS Statement are negative. <Ayla More - Last Filed: 05/15/23 17:17> ROS Other: All systems not noted in ROS Statement are negative. <Wilmar Peralta - Last Filed: 05/15/23 20:14> ROS Statement: Those systems with pertinent positive or pertinent negative responses have been documented in the HPI. Past Medical History Past Medical History: Cancer Additional Past Medical History / Comment(s): esophogeal cancer 01/2023, History of Any Multi-Drug Resistant Organisms: None Reported Past Surgical History: Appendectomy Additional Past Surgical History / Comment(s): PEG tube placement Past Psychological History: No Psychological Hx Reported Smoking Status: Former smoker Past Alcohol Use History: None Reported, Occasional Past Drug Use History: None Reported <Ayla More - Last Filed: 05/15/23 17:17> General Exam Limitations: no limitations <Ayla More - Last Filed: 05/15/23 17:17> - General Exam Comments Initial Comments: General: Alert, in no acute distress Head: atraumatic normocephalic. Eyes PERRL, EOMI intact, mucous membranes moist Respiratory: Lungs clear to auscultation bilaterally Cardiovascular: Heart rate regular rate and rhythm Abdominal: Mildly distended. PEG tube with 4 cm x 3 cm square area of erythematous skin breakdown. \\There is clean thick discharge around the surgical site. Extremities: Normal inspection with full range of motion and normal capillary refill Neuroogic: alert and oriented 3, CN II-XII intact, able to ambulate with steady gait Skin: warm dry and intact with normal color (Ayla More) Course <Ayla More - Last Filed: 05/15/23 17:17> Vital Signs 05/15/23 05/15/23 14:27 16:43 Temperature 98.1 F Pulse Rate 103 H 91 Respiratory 18 18 Rate Blood Pressure 107/71 92/62 O2 Sat by Pulse 96 94 L Oximetry - Reevaluation(s) Reevaluation #1: 05/15/23 17:30 case is discussed with patient hospice care nurse who reports the patient was discharged from hospice in order to come to the hospital for evaluation 05/15/23 17:45 days is signed out to Dr. Peralta pending CT results (Ayla More) Medical Decision Making - Lab Data Result diagrams: 05/15/23 13:36 <Ayla More - Last Filed: 05/15/23 17:17> - Lab Data Result diagrams: 05/15/23 13:36 05/15/23 13:36 <Wilmar Peralta - Last Filed: 05/15/23 20:14> - Medical Decision Making Was pt. sent in by a medical professional or institution (, SEBASTIAN, FULFILLMENT COORDINATOR, urgent care, hospital, or longterm...) When possible be specific @ -[No] Did you speak to anyone other than the patient for history (EMS, parent, family, police, friend...)? What history was obtained from this source @ -[No] Did you review nursing and triage notes (agree or disagree)? Why? @ -[I reviewed and agree with nursing and triage notes] Were old charts reviewed (outside hosp., previous admission, EMS record, old EKG, old radiological studies, urgent care reports/EKG's, longterm records)? Report findings @ -[No old charts were reviewed] Differential Diagnosis (chest pain, altered mental status, abdominal pain women, abdominal pain men, vaginal bleeding, weakness, fever, dyspnea, syncope, headache, dizziness, GI bleed, back pain, seizure, CVA, palpatations, mental health, musculoskeletal)? @ -[not applicable] EKG interpreted by me (3pts min.). @ -[As above] X-rays interpreted by me (1pt min.). @ -[None done] CT interpreted by me (1pt min.). @ -[None done] U/S interpreted by me (1pt. min.). @ -[None done] What testing was considered but not performed or refused? (CT, X-rays, U/S, la bs)? Why? @ -[None] What meds were considered but not given or refused? Why? @ -[None] Did you discuss the management of the patient with other professionals (professionals i.e. , SEBASTIAN, FULFILLMENT COORDINATOR, lab, RT, psych nurse, social science research assistant, principal solutions architect, teacher, electronic warfare officer, watch case polisher)? Give summary @ -[No] Was smoking cessation discussed for >3mins.? @ -[No] Was critical care preformed (if so, how long)? @ -[No] Were there social determinants of health that impacted care today? How? (Homelessness, low income, unemployed, alcoholism, drug addiction, transportation, low edu. Level, literacy, decrease access to med. care, penitentiary, rehab)? @ -[No] Was there de-escalation of care discussed even if they declined (Discuss DNR or withdrawal of care, Hospice)? DNR status @ -[No] What co-morbidities impacted this encounter? (DM, HTN, Smoking, COPD, CAD, Cancer, CVA, ARF, Chemo, Hep., AIDS, mental health diagnosis, sleep apnea, morbid obesity)? @ -[None] Was patient admitted / discharged? Hospital course, mention meds given and route, prescriptions, significant lab abnormalities, going to OR and other pe rtinent info. @ -Physician pending. This is a 67-year-old male with medical history significant for esophageal cancer who presents the emergency department with PEG tube problem. Patient had thorough history and physical exam performed. His goal exam reveals a 4 x 3 cm area of erythema and skin breakdown around the surgical site. There is thick green discharge from the surgical site as well. Patient's abdomen is mildly distended with generalized tenderness. Patient laboratory studies performed which revealed WBC 11.0, hemoglobin 15.5 sodium 146, potassium 4.3, BUn 25, Creatine 0.73, total bilirubin 0.9 AST 36, ALT 18 Covid and influenza negative. Patient will be signed out to Dr. Peralta who assumes care pending CT results. (Ayla More) Chest and abdominal x-ray interpreted by myself shows no acute process. . Computed tomography scan of abdomen and pelvis does show PEG tube in place with some swelling and ear. Hepatic lesions. Abdominal ascites. Osseous lesions. Patient reevaluated her patient does have excoriation of the skin approximately 10 x 10 cm. There is concern for infection. Patient and family would like to be admitted. Case was discussed with practitioner Suraj Denton will admit covering hospital call. Surgical consult will be placed. (Wilmar Peralta) - Lab Data Lab Results 05/15/23 05/15/23 05/15/23 Range/Units 13:36 13:36 13:36 WBC 11.0 H (3.8-10.6) k/uL RBC 5.01 (4.30-5.90) m/uL Hgb 15.5 (13.0-17.5) gm/dL Hct 48.6 (39.0-53.0) % MCV 97.0 (80.0-100.0) fL MCH 30.9 (25.0-35.0) pg MCHC 31.9 (31.0-37.0) g/dL RDW 15.8 H (11.5-15.5) % Plt Count 207 (150-450) k/uL MPV 10.4 Neutrophils % 80 % Lymphocytes % 11 % Monocytes % 6 % Eosinophils % 1 % Basophils % 0 % Neutrophils # 8.8 H (1.3-7.7) k/uL Lymphocytes # 1.2 (1.0-4.8) k/uL Monocytes # 0.7 (0-1.0) k/uL Eosinophils # 0.1 (0-0.7) k/uL Basophils # 0.0 (0-0.2) k/uL Hypochromasia Slight Macrocytosis Slight Sodium 146 H (137-145) mmol/L Potassium 4.3 (3.5-5.1) mmol/L Chloride 105 (98-107) mmol/L Carbon Dioxide 26 (22-30) mmol/L Anion Gap 15 mmol/L BUN 25 H (9-20) mg/dL Creatinine 0.73 (0.66-1.25) mg/dL Est GFR (CKD-EPI)AfAm >90 (>60 ml/min/1.73 sqM) Est GFR (CKD-EPI)NonAf >90 (>60 ml/min/1.73 sqM) Glucose 87 (74-99) mg/dL Plasma Lactic Acid Humberto 1.8 (0.7-2.0) mmol/L Calcium 9.1 (8.4-10.2) mg/dL Total Bilirubin 0.9 (0.2-1.3) mg/dL AST 36 (17-59) U/L ALT 18 (4-49) U/L Alkaline Phosphatase 82 (38-126) U/L Total Protein 7.4 (6.3-8.2) g/dL Albumin 3.7 (3.5-5.0) g/dL Influenza Type A (PCR) (Not Detectd) Influenza Type B (PCR) (Not Detectd) RSV (PCR) (Not Detectd) SARS-CoV-2 (PCR) (Not Detectd) 05/15/23 Range/Units 13:36 WBC (3.8-10.6) k/uL RBC (4.30-5.90) m/uL Hgb (13.0-17.5) gm/dL Hct (39.0-53.0) % MCV (80.0-100.0) fL MCH (25.0-35.0) pg MCHC (31.0-37.0) g/dL RDW (11.5-15.5) % Plt Count (150-450) k/uL MPV Neutrophils % % Lymphocytes % % Monocytes % % Eosinophils % % Basophils % % Neutrophils # (1.3-7.7) k/uL Lymphocytes # (1.0-4.8) k/uL Monocytes # (0-1.0) k/uL Eosinophils # (0-0.7) k/uL Basophils # (0-0.2) k/uL Hypochromasia Macrocytosis Sodium (137-145) mmol/L Potassium (3.5-5.1) mmol/L Chloride (98-107) mmol/L Carbon Dioxide (22-30) mmol/L Anion Gap mmol/L BUN (9-20) mg/dL Creatinine (0.66-1.25) mg/dL Est GFR (CKD-EPI)AfAm (>60 ml/min/1.73 sqM) Est GFR (CKD-EPI)NonAf (>60 ml/min/1.73 sqM) Glucose (74-99) mg/dL Plasma Lactic Acid Humberto (0.7-2.0) mmol/L Calcium (8.4-10.2) mg/dL Total Bilirubin (0.2-1.3) mg/dL AST (17-59) U/L ALT (4-49) U/L Alkaline Phosphatase (38-126) U/L Total Protein (6.3-8.2) g/dL Albumin (3.5-5.0) g/dL Influenza Type A (PCR) Not Detected (Not Detectd) Influenza Type B (PCR) Not Detected (Not Detectd) RSV (PCR) Not Detected (Not Detectd) SARS-CoV-2 (PCR) Not Detected (Not Detectd) Disposition <Ayla More - Last Filed: 05/15/23 17:17> Is patient prescribed a controlled substance at d/c from ED?: No Time of Disposition: 20:14 <Wilmar Peralta - Last Filed: 05/15/23 20:14> Clinical Impression: Abdominal wall cellulitis Disposition: ADMITTED IP TO THIS HOSP Referrals: Riley Quinn [Primary Care Provider] - 1-2 days
--- NOTE | 2023-05-15 19:58 | CT ---
EXAMINATION TYPE: CT abdomen pelvis w con CT DLP: 1093.9 mGycm, Automated exposure control for dose reduction was used. DATE OF EXAM: 05/15/2023 6:03 PM COMPARISON: CT abdomen pelvis 04/17/2023 CLINICAL INDICATION:Male, 67 years old with history of peg tube problem; peg tube leaking, h/o esopho geal CA TECHNIQUE: Axial CT of the abdomen and pelvis. Sagittal and coronal reformats were created on a [employer] workstation. Contrast used:100 mL of Isovue 300 with IV Contrast, (none if empty) Oral contrast used: with Oral Contrast (none if empty) FINDINGS: LOWER CHEST: Mild bibasilar scarring. Trace left pleural effusion. A couple tiny subpleural nodular d ensities in the lung bases, suspected to be most likely benign; follow-up as clinically warranted to exclude early metastases. Heart appears mildly enlarged. ABDOMEN LIVER: Diffuse cirrhotic morphology again noted. There are several centrally low-density nodules with peripheral enhancement now seen throughout the liver, not previously identified, concerning for meta stases. A factory representative example includes a posterior right hepatic lobe lesion image 28 series 201 m easuring 1.7 x 1.3 cm. Other examples are possible. GALLBLADDER AND BILE DUCTS: Status post cholecystectomy. Biliary tree is not significantly dilated. PANCREAS: Unremarkable. SPLEEN: No acute abnormality. Redemonstration of lobulated low-attenuation ascitic fluid along its ma rgin. ADRENAL GLANDS: Stable, left is mildly thickened without discrete mass.. KIDNEYS AND URETERS: Kidneys enhance symmetrically. Stable low-density nodules in the right kidney, l ikely cysts. No hydronephrosis. PELVIS BLADDER: Mostly empty, grossly unremarkable. REPRODUCTIVE: Stable mildly prominent prostate measures 4.5 cm diameter with some coarse central calc ifications. ABDOMEN & PELVIS STOMACH AND BOWEL: A PEG tube is seen terminating in the mid gastric body. The retention balloon is d ifficult to visualize but appears to be within the gastric lumen. There is mild soft tissue swelling and small amounts of fluid and gas along the tube in the anterior abdominal wall; no localized fluid collection. Gastric wall again appears somewhat thickened in some areas, especially distally, similar to before. Thickened appearance of the distal esophagus with small adjacent lymph nodes, similar to before. There is clustering of multiple small bowel loops due to the ascites, no evidence of bowel ob struction. The appendix is not visualized. Mild/moderate stool throughout colon, with some radiodense stool noted distally. Mildly thickened appearance of some portions of the colon again noted, could b e from hepatic colopathy. PERITONEUM/RETROPERITONEUM: Moderate to large amount of abdominal pelvic ascites, similar to previous . Diffuse mesenteric stranding and multiple nonenlarged nodes, similar to before. VASCULATURE: Moderate atherosclerotic disease throughout the abdominal aorta and branches. No evidenc e of AAA. MUSCULOSKELETAL: Diffuse degenerative changes. No evidence of an acute abnormality. Small sclerotic d ensities in multiple thoracolumbar vertebral bodies, largest at L3 measuring 12 mm (previously 10.4 m m), and stable sclerotic density T12 compared to prior. Several smaller sclerotic densities appear ne w or larger than before. No destructive bony lesion is seen. LYMPH NODES: No gross evidence for lymphadenopathy. SOFT TISSUE/ABDOMINAL WALL: Small to moderate size fat-containing bilateral inguinal hernias. IMPRESSION: 1. PEG tube terminates in the mid stomach. Small amount of soft tissue swelling, fluid, and gas que g the tube as it extends through the anterior abdominal wall. 2. Cirrhotic hepatic morphology redemonstrated. 3. Several new low-attenuation peripherally enhancing hepatic lesions since 04/17/2023, highly concer dipika for liver metastases. 4. Moderate to large volume of abdominopelvic ascites, similar to previous. 5. Bowel findings likely related to hepatic colopathy, similar to previous. Malignant involvement ca nnot be fully excluded. There is no evidence of bowel obstruction. 6. Multiple sclerotic osseous lesions, some slightly larger and others new since the prior study, co ncerning for progression of osseous metastatic disease. 7. Other chronic and likely incidental findings, as described above.
[2023-05-15] MEDS ORDERED: HYDROmorphone 0.5 MG/0.5 ML SYRINGE IVP PRN (20:15)
[2023-05-15] MEDS ORDERED: NALOXONE 0.4 MG/ML 1 ML VIAL IV PRN (20:15)
[2023-05-15] MEDS ORDERED: ACETAMINOPHEN TAB 325 MG TAB PO PRN (20:15)
[2023-05-15] MEDS: SODIUM CHLORIDE 0.9% 1,000 ML IV SCH (20:24)
[2023-05-15] MEDS: PANTOPRAZOLE 40 MG/10 ML VIAL IV SCH (20:25)
[2023-05-16] MEDS: HYDROmorphone 1 MG/ML 1 ML SYRINGE IVP PRN ×3 (04:08→18:17)
[2023-05-16] MEDS: ONDANSETRON 4 MG/2 ML VIAL IVP PRN ×4 (04:17→23:25)
[2023-05-16] MEDS: PIPERACILLIN-TAZOBACTAM 3.375 GM in SODIUM CHLORIDE 0.9% 100 ML IVPB SCH ×3 (07:22→23:24)
[2023-05-16] MEDS: PANTOPRAZOLE 40 MG/10 ML VIAL IV SCH (08:40)
[2023-05-16 08:52] LABS: Basophils % (A) 0 %; Eosinophils # (A) 0.1 k/uL (0-0.7); Eosinophils % (A) 1 %; HCT 48.7 % (39.0-53.0); HGB 15.1 gm/dL (13.0-17.5); Hypochromasia Slight; Lymphocytes # (A) 1.2 k/uL (1.0-4.8); Lymphocytes % (A) 12 %; MCV 96.8 fL (80.0-100.0); Macrocytosis Slight; Monocytes # (A) 0.9 k/uL (0-1.0); Monocytes % (A) 9 %; Neutrophils # (A) 7.5 k/uL (1.3-7.7); Neutrophils % (A) 77 %; Platelet Count 196 k/uL (150-450); RBC 5.03 m/uL (4.30-5.90); RDW 15.9 % (11.5-15.5); WBC 9.9 k/uL (3.8-10.6)
[2023-05-16 11:01] LABS: ALT 17 U/L (4-49); AST 33 U/L (17-59); African American GFR (CKD) >90 (>60 ml/min/1.73 sqM); Albumin 3.5 g/dL (3.5-5.0); Alkaline Phosphatase 77 U/L (38-126); Anion Gap 12 mmol/L; Blood Urea Nitrogen 22 mg/dL (9-20); Calcium 8.9 mg/dL (8.4-10.2); Carbon Dioxide 29 mmol/L (22-30); Chloride 107 mmol/L (98-107); Globulin 3.6 g/dL; Glucose 83 mg/dL (74-99); Non-African American GFR(CKD) >90 (>60 ml/min/1.73 sqM); Sodium 148 mmol/L (137-145); Total Bilirubin 0.8 mg/dL (0.2-1.3); Total Protein 7.1 g/dL (6.3-8.2)
[2023-05-16 11:11] LABS: Potassium 4.2 mmol/L (3.5-5.1)
[2023-05-16] MEDS ORDERED: LORazepam 2 MG/ML INJ IV PRN (13:14)
[2023-05-16] MEDS ORDERED: MORPHINE CONC SOLN 10mg/0.5mL ORAL SYRG PO PRN (13:14)
[2023-05-16] MEDS ORDERED: LORazepam 0.5 MG TAB PO PRN (13:14)
[2023-05-16] MEDS: MORPHINE SULFATE ER 60 MG TABLET PO SCH ×2 (13:35→21:34)
[2023-05-16] MEDS: SODIUM CHLORIDE 0.9% 1,000 ML IV SCH ×2 (13:37→21:37)
[2023-05-16] MEDS ORDERED: ZINC OXIDE 20% OINT 28.4 GM TUBE TOPICAL PRN (14:57)
--- NOTE | 2023-05-16 14:57 | P.GSCN ---
History of Present Illness Consult date: 05/16/23 History of present illness: Patient has feeding tube placed less than 3 weeks ago.He comes in with dark drainage with redness at feeding tube, 3 cm border. "It hurts! I can't eat or sleep." He had a suzie wrap along the chest from outside facility. Family at bedside. Caliber of feeding tube less than 20 Fr. Skin emolient such as zinc oxide. May benefit from upsizing feeding tube to 20-Fr to stop leak. CT reviewed with Gtube in stomach. Keep NPO. I personally changed dressing at bedside. Past Medical History Past Medical History: Cancer Additional Past Medical History / Comment(s): esophogeal cancer 01/2023, History of Any Multi-Drug Resistant Organisms: None Reported Past Surgical History: Appendectomy Additional Past Surgical History / Comment(s): PEG tube placement Past Anesthesia/Blood Transfusion Reactions: No Reported Reaction Smoking Status: Former smoker Medications and Allergies Home Medications Medication Instructions Recorded Confirmed Type Morphine Sulfate [Morphine Sulfate 60 mg PO Q12H 04/16/23 05/15/23 History ER] Cephalexin [Keflex] 500 mg PO Q6H 05/15/23 05/15/23 History LORazepam ORAL CONC [Ativan 0.5 - 1 mg PO Q4H PRN 05/15/23 05/15/23 History Intensol] MORPHINE ORAL DEIRDRE CONC 20mg/mL 20 mg PO Q1H PRN 05/15/23 05/15/23 History [Roxanol Oral Soln Conc 20MG/ML] Ondansetron [Zofran] 4 mg PO Q8H PRN 05/15/23 05/15/23 History Allergies Allergy/AdvReac Type Severity Reaction Status Date / Time No Known Allergies Allergy Verified 05/15/23 21:29 Surgical - Exam Vital Signs Temp Pulse Resp BP Pulse Ox 98.1 F 103 H 18 107/71 96 05/15/23 14:27 05/15/23 14:27 05/15/23 14:27 05/15/23 14:27 05/15/23 14:27 Results - Labs 05/16/23 08:26 05/16/23 08:26 Abnormal Lab Results - Last 24 Hours (Table) 05/15/23 05/15/23 05/16/23 Range/Units 13:36 13:36 08:26 WBC 11.0 H (3.8-10.6) k/uL RDW 15.8 H 15.9 H (11.5-15.5) % Neutrophils # 8.8 H (1.3-7.7) k/uL Sodium 146 H (137-145) mmol/L BUN 25 H (9-20) mg/dL Creatinine (0.66-1.25) mg/dL 05/16/23 Range/Units 08:26 WBC (3.8-10.6) k/uL RDW (11.5-15.5) % Neutrophils # (1.3-7.7) k/uL Sodium 148 H (137-145) mmol/L BUN 22 H (9-20) mg/dL Creatinine 0.62 L (0.66-1.25) mg/dL Diabetes panel 05/15/23 05/16/23 Range/Units 13:36 08:26 Sodium 146 H 148 H (137-145) mmol/L Potassium 4.3 4.2 (3.5-5.1) mmol/L Chloride 105 107 (98-107) mmol/L Carbon Dioxide 26 29 (22-30) mmol/L BUN 25 H 22 H (9-20) mg/dL Creatinine 0.73 0.62 L (0.66-1.25) mg/dL Glucose 87 83 (74-99) mg/dL Calcium 9.1 8.9 (8.4-10.2) mg/dL AST 36 33 (17-59) U/L ALT 18 17 (4-49) U/L Alkaline Phosphatase 82 77 (38-126) U/L Total Protein 7.4 7.1 (6.3-8.2) g/dL Albumin 3.7 3.5 (3.5-5.0) g/dL Calcium panel 05/15/23 05/16/23 Range/Units 13:36 08:26 Calcium 9.1 8.9 (8.4-10.2) mg/dL Albumin 3.7 3.5 (3.5-5.0) g/dL Pituitary panel 05/15/23 05/16/23 Range/Units 13:36 08:26 Sodium 146 H 148 H (137-145) mmol/L Potassium 4.3 4.2 (3.5-5.1) mmol/L Chloride 105 107 (98-107) mmol/L Carbon Dioxide 26 29 (22-30) mmol/L BUN 25 H 22 H (9-20) mg/dL Creatinine 0.73 0.62 L (0.66-1.25) mg/dL Glucose 87 83 (74-99) mg/dL Calcium 9.1 8.9 (8.4-10.2) mg/dL Adrenal panel 05/15/23 05/16/23 Range/Units 13:36 08:26 Sodium 146 H 148 H (137-145) mmol/L Potassium 4.3 4.2 (3.5-5.1) mmol/L Chloride 105 107 (98-107) mmol/L Carbon Dioxide 26 29 (22-30) mmol/L BUN 25 H 22 H (9-20) mg/dL Creatinine 0.73 0.62 L (0.66-1.25) mg/dL Glucose 87 83 (74-99) mg/dL Calcium 9.1 8.9 (8.4-10.2) mg/dL Total Bilirubin 0.9 0.8 (0.2-1.3) mg/dL AST 36 33 (17-59) U/L ALT 18 17 (4-49) U/L Alkaline Phosphatase 82 77 (38-126) U/L Total Protein 7.4 7.1 (6.3-8.2) g/dL Albumin 3.7 3.5 (3.5-5.0) g/dL
--- NOTE | 2023-05-16 20:14 | HP ---
HISTORY AND PHYSICAL CHIEF COMPLAINT: Abdominal pain and weakness. HISTORY OF PRESENT ILLNESS: This is a 67-year-old gentleman with a past medical history of esophageal cancer, had a PEG tube placement. The patient was discharged to hospice last time, but currently, the patient had difficulty with PEG tube and biliary drainage, and the patient was taken to [facility] and admitted for further evaluation and treatment. Currently, I had a discussion with the family, and the family would like to go with comfort measures. A CAT scan which was done was reviewed, and the patient also had multiple abnormalities as well again including ascites. There is no history of any fever, rigor, or chills. PAST MEDICAL HISTORY: Esophageal cancer. Rest of the history and rest of the chart are also reviewed. HOME MEDICATIONS: Reviewed include Zofran. Doses and rest of the medications are reviewed. ALLERGIES: None. FAMILY HISTORY: No history of heart disease or strokes in the family. SOCIAL HISTORY: Previous history of smoking. REVIEW OF SYSTEMS: Fourteen-point review is negative except as mentioned earlier. PHYSICAL EXAMINATION: VITAL SIGNS: Pulse 89, blood pressure 116/84, respirations 17. HEENT: Conjunctivae are normal. NECK: No jugular venous distention. CARDIOVASCULAR: S1 and S2 muffled. RESPIRATORY: Breath sounds diminished at the bases. ABDOMEN: Soft. Obese. Ascites present. Drainage and cellulitis around the PEG tube also present. LABORATORY DATA: Reviewed. ASSESSMENT: 1. Severe abdominal wall cellulitis around the percutaneous endoscopic gastrostomy tube placement, possibly percutaneous endoscopic gastrostomy tube malposition. 2. Esophageal cancer with metastasis with severe ascites. 3. Severe abdominal pain. 4. Multiple complex medical issues. 5. No code. No CPR. No vent. RECOMMENDATIONS AND DISCUSSION: In this 67-year-old gentleman presented with multiple complex medical issues, we will monitor the patient closely. I would recommend IV Dilaudid, comfort measures, and consult Hospice. Otherwise, overall prognosis is extremely guarded because of multiple complex medical issues. Further recommendations to follow. See orders for details. MMODL / IJN: [id number] /
--- NOTE | 2023-05-16 20:28 | P.CONS ---
History of Present Illness - Reason for Consult Consult date: 05/16/23 - History of Present Illness Patient is a 67-year-old male with a past medical history significant for esophageal cancer apparently diagnosed in advance of 2022 and this patient did have a PEG tube for feeding and the patient now presenting to the hospital with increasing drainage from the PEG tube site with erythema and the patient be complaining of some discomfort associated with it mild to moderate intensity without any radiation patient denies having any fever or any chills no nausea no vomiting or any diarrhea has been complaining of pain all over patient on presentation the hospital was afebrile and no fever Recorded subsequently he was mildly tachycardic but not hypotensive or hypoxic patient did have vital of 11,000 with a left shift kidney function was normal liver enzymes are normal influenza RSV and COVID testing was negative patient did have a abdominal pelvis CT which shows small amount of soft tissue swelling fluid and gas along the tube as it extends through the anterior abdominal wall moderate to large volume abdominal pelvic ascites multiple sclerotic osseous lesion patient was started on Zosyn infectious disease was consulted for abdominal wall cellulitis Past Medical History Past Medical History: Cancer Additional Past Medical History / Comment(s): esophogeal cancer 01/2023, History of Any Multi-Drug Resistant Organisms: None Reported Past Surgical History: Appendectomy Additional Past Surgical History / Comment(s): PEG tube placement Past Anesthesia/Blood Transfusion Reactions: No Reported Reaction Smoking Status: Former smoker Medications and Allergies Home Medications Medication Instructions Recorded Confirmed Type Morphine Sulfate [Morphine Sulfate 60 mg PO Q12H 04/16/23 05/15/23 History ER] Cephalexin [Keflex] 500 mg PO Q6H 05/15/23 05/15/23 History LORazepam ORAL CONC [Ativan 0.5 - 1 mg PO Q4H PRN 05/15/23 05/15/23 History Intensol] MORPHINE ORAL DEIRDRE CONC 20mg/mL 20 mg PO Q1H PRN 05/15/23 05/15/23 History [Roxanol Oral Soln Conc 20MG/ML] Ondansetron [Zofran] 4 mg PO Q8H PRN 05/15/23 05/15/23 History Allergies Allergy/AdvReac Type Severity Reaction Status Date / Time No Known Allergies Allergy Verified 05/15/23 21:29 Physical Exam Vitals: Vital Signs Temp Pulse Pulse Resp BP BP Pulse Ox 12/03/23 12:04 98.3 F 102 H 17 110/71 95 05/16/23 07:32 98 F 89 17 116/81 94 L 05/16/23 04:00 97.5 F L 96 16 106/70 95 05/16/23 02:57 93 18 118/68 94 L 05/15/23 20:51 90 18 102/67 95 05/15/23 16:43 91 18 92/62 94 L Intake and Output 05/16/23 05/16/23 05/16/23 06:59 14:59 22:59 Intake Total 600 Output Total 300 100 Balance 300 -100 Intake: Intake, IV Titration 600 Amount Sodium Chloride 0.9% 1, 600 000 ml @ 75 mls/hr IV . [id number] [facility] Rx#:[id number] Output: Urine 300 100 Other: Weight 79.379 kg Results CBC & Chem 7: 05/16/23 08:26 05/16/23 08:26 Labs: Abnormal Lab Results - Last 24 Hours (Table) 05/15/23 05/15/23 05/16/23 Range/Units 13:36 13:36 08:26 WBC 11.0 H (3.8-10.6) k/uL RDW 15.8 H 15.9 H (11.5-15.5) % Neutrophils # 8.8 H (1.3-7.7) k/uL Sodium 146 H (137-145) mmol/L BUN 25 H (9-20) mg/dL Creatinine (0.66-1.25) mg/dL 05/16/23 Range/Units 08:26 WBC (3.8-10.6) k/uL RDW (11.5-15.5) % Neutrophils # (1.3-7.7) k/uL Sodium 148 H (137-145) mmol/L BUN 22 H (9-20) mg/dL Creatinine 0.62 L (0.66-1.25) mg/dL Assessment and Plan Plan: 1patient presented to hospital with abdominal wall swelling redness and drainage around his PEG tube site with significant normality seen on the CT abdominal pelvis questionably related to irritation from the gastric acid and less likely infectious etiology as the patient does not look toxic and is not having any fever 2-local culture has been requested 3-we will apply Triad cream around the PEG tube site to the erythematous patch 4-May continue Zosyn empirically while waiting for the culture to finalize We will follow on clinical condition and cultures to further adjust medication if needed Thank you for this consultation we will follow the patient along with you Dictation was produced using [employer] dictation software. please excuse any grammatical, word or spelling errors. Time with Patient: Greater than 30
[2023-05-16] MEDS: HYDROPHILIC CREAM 180 GM TUBE TOPICAL SCH (21:35)
[2023-05-17] MEDS: HYDROmorphone 1 MG/ML 1 ML SYRINGE IVP PRN ×5 (03:04→19:41)
[2023-05-17] MEDS: ONDANSETRON 4 MG/2 ML VIAL IVP PRN ×3 (06:05→21:59)
[2023-05-17] MEDS: PIPERACILLIN-TAZOBACTAM 3.375 GM in SODIUM CHLORIDE 0.9% 100 ML IVPB SCH ×3 (07:21→23:36)
[2023-05-17] MEDS: HYDROPHILIC CREAM 180 GM TUBE TOPICAL SCH ×2 (07:22→19:43)
[2023-05-17] MEDS: MORPHINE SULFATE ER 60 MG TABLET PO SCH ×3 (07:22→23:36)
[2023-05-17] MEDS: PANTOPRAZOLE 40 MG/10 ML VIAL IV SCH (08:31)
[2023-05-17 10:03] VITALS: BMI 24.4
--- NOTE | 2023-05-17 13:22 | P.PN ---
Subjective Progress Note Date: 05/17/23 CHIEF COMPLAINT: Drainage from PEG tube HISTORY OF PRESENT ILLNESS: Patient continues to have bilious drainage around the PEG tube site with skin irritation. He does complain of abdominal pain. He is known history of esophageal cancer. Patient had PEG tube placement on 05/11/2023. Afebrile. WBC 11 down to 9.9 Hgb 15.1 platelets 196 sodium 140 potassium 4.2 creatinine 0.60 PHYSICAL EXAM: VITAL SIGNS: Reviewed. GENERAL: Well-developed in no acute distress. ABDOMEN: Soft. Nondistended. PEG tube site with dark bilious drainage from PEG tubing. Erythema skin changes around PEG tube. NEUROLOGIC: Awake and alert ASSESSMENT: 1. Bilious drainage from PEG tube with skin irritation around PEG tube 2. History of esophageal cancer PLAN: -Patient scheduled for PEG tube replacement with Dr. Sadler today -Keep patient nothing by mouth Physician Rn Informatics note has been reviewed by physician. Signing provider agrees with the documented findings, assessment, and plan of care. Objective - Vital Signs Vital signs: Vital Signs Temp 97.2 F L 05/17/23 07:34 Pulse 86 05/17/23 07:34 Resp 17 05/17/23 07:34 BP 117/74 05/17/23 07:34 Pulse Ox 95 05/17/23 07:34 FiO2 Intake & Output 05/16/23 05/17/23 05/17/23 18:59 06:59 18:59 Intake Total 1000 Output Total 100 200 Balance -100 800 Weight 79.379 kg Intake: Intake, IV Titration 1000 Amount Piperacillin-Tazobactam 3 100 .375 gm In Sodium Chloride 0.9% 100 ml @ 25 mls/hr IVPB Q8HR [facility] Rx# :[id number] Sodium Chloride 0.9% 1, 900 000 ml @ 75 mls/hr IV . [id number] [facility] Rx#:[id number] Output: Urine 100 200 Other: Voiding Method Toilet Urinal # Voids 1 - Labs CBC & Chem 7: 05/16/23 08:26 05/16/23 08:26 Labs: Microbiology - Last 24 Hours (Table) 05/15/23 13:36 Blood Culture - Preliminary Blood
[2023-05-17] MEDS: SODIUM CHLORIDE 0.9% 1,000 ML IV SCH (13:50)
[2023-05-17] MEDS ORDERED: PROPOFOL 10 MG/ML 20 ML VIAL IV ONE (14:11)
[2023-05-17] MEDS ORDERED: LIDOCAINE 1% INJ 10MG/ML (20 ML MDV) ONE (14:11)
[2023-05-17] MEDS ORDERED: IV FLUID CONTINUATION 1,000 ML IV ONE ×2 (14:15)
--- NOTE | 2023-05-17 14:35 | P.PCN ---
Date of Procedure: 05/17/23 Procedure(s) Performed: PREOPERATIVE DIAGNOSIS: Malfunctioning gastrostomy POSTOPERATIVE DIAGNOSIS: Same PROCEDURE: Percutaneous gastrostomy tube replacement SURGEON: Viktoriya EBL: none ANESTHESIA: Sedation COMPLICATIONS: None OPERATIVE PROCEDURE: Patient sedated on his stretcher for the procedure. He was supine. The previous 14-Slovak balloon catheter was removed after withdrawing 7 mL of fluid. A new 20-Slovak catheter was advanced into the stomach without difficulty. The balloon was inflated with 10 mL of water. The bolster was tightened down. Dressings were applied. DISPOSITION: Stable to recovery room
[2023-05-17 16:33] LABS: INR 1.3 (<1.2); Prothrombin Time 13.7 sec (10.0-12.5)
--- NOTE | 2023-05-17 19:32 | PN ---
PROGRESS NOTE DATE OF SERVICE: 05/17/2023 SUBJECTIVE: This is a 67-year-old gentleman, who was admitted with abdominal pain as well as some redness around the PEG tube site. He is scheduled to be re-evaluated by Dr. Sadler for possible replacement of the PEG tube at this time. Dr. Sadler has done already a replacement in April. There is some redness. The patient is being treated with antibiotics. The CAT scan showed multiple abnormalities including possibly new liver metastases and as well as ascites and other chronic lesions also. The pain is being treated with IV Dilaudid. PAST MEDICAL HISTORY: Reviewed. REVIEW OF SYSTEMS: Fourteen-point review is negative except as mentioned earlier. CURRENT MEDICATIONS: Reviewed include IV Dilaudid. Rest of the medications are noted. PHYSICAL EXAMINATION: VITAL SIGNS: Pulse is 86, blood pressure 117/75, respirations 17. HEENT: Conjunctivae are normal. NECK: No jugular venous distention. CARDIOVASCULAR: S1 and S2 muffled. RESPIRATORY: Breath sounds diminished at the bases. ABDOMEN: Soft. Ascites. LEGS: No edema. NERVOUS SYSTEM: Nonfocal. LABORATORY DATA: WBC 9.9. ASSESSMENT: 1. Acute abdominal wall cellulitis around the percutaneous endoscopic gastrostomy tube site and possibly percutaneous endoscopic gastrostomy tube malposition, for replacement. 2. Severe abdominal pain. 3. Ascites. 4. 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 5. Multiple complex medical issues. 6. No code. No CPR. No vent. RECOMMENDATIONS: Recommend to continue current medical management. Continue symptomatic treatment. Continue with pain management. PEG tube malposition by Dr. Sadler. Otherwise, I would also recommend ascitic tap. We will continue to monitor. Otherwise, I also discussed with family at length and also discussed with Dr. Artis, who is the assistant director of financial aid. Further recommendations to follow. MMODL / IJN: [id number] /
[2023-05-18] MEDS: SODIUM CHLORIDE 0.9% 1,000 ML IV SCH (02:22)
[2023-05-18] MEDS: HYDROmorphone 1 MG/ML 1 ML SYRINGE IVP PRN ×3 (02:23→12:44)
[2023-05-18] MEDS: ONDANSETRON 4 MG/2 ML VIAL IVP PRN ×2 (04:01→12:44)
[2023-05-18 04:21] VITALS: RESP 16
[2023-05-18] MEDS: PIPERACILLIN-TAZOBACTAM 3.375 GM in SODIUM CHLORIDE 0.9% 100 ML IVPB SCH (08:56)
[2023-05-18] MEDS: HYDROPHILIC CREAM 180 GM TUBE TOPICAL SCH (08:57)
[2023-05-18] MEDS: PANTOPRAZOLE 40 MG/10 ML VIAL IV SCH (08:57)
[2023-05-18] MEDS: MORPHINE SULFATE ER 60 MG TABLET PO SCH (09:00)
[2023-05-18 09:03] VITALS: TEMP 97
--- NOTE | 2023-05-18 09:59 | US ---
Ultrasound-guided paracentesis. DATE OF EXAM: 05/18/2023 CLINICAL HISTORY: Ascites The procedure was discussed with the patient. The risks, complications, benefits, and alternatives we re discussed and any questions were answered. Informed consent was obtained. The patient was placed s upine on the ultrasound table and prepped and draped in the usual sterile fashion. All elements of maximal barrier technique were utilized. Under ultrasound guidance, access into the right lower quadrant was obtained, via the paracentesis catheter system and direct ultrasound guidanc e. Approximately 3.5 liters of straw-colored fluid was removed. The patient was stable throughout the pr ocedure and remained stable upon discharge from Department of Radiology. IMPRESSION: Successful paracentesis under ultrasound guidance.
[2023-05-18 10:14] VITALS: BP 128/78; PULSE 78
[2023-05-18 10:58] LABS: Basophils # (A) 0.05 X 10*3/uL (0.00-0.10); Basophils % (A) 0.6 %; Eosinophils # (A) 0.07 X 10*3/uL (0.04-0.35); Eosinophils % (A) 0.8 %; HCT 47.2 % (39.6-50.0); HGB 14.2 g/dL (13.0-17.0); Lymphocytes # (A) 1.37 X 10*3/uL (0.90-5.00); Lymphocytes % (A) 15.9 %; MCH 29.7 pg (27.0-32.0); MCHC 30.1 g/dL (32.0-37.0); MCV 98.7 FL (80.0-97.0); Mean Platelet Volume 13.3 FL (9.5-12.2); Monocytes % (A) 10.5 %; NRBC Per 100 WBC 0 X 10*3/uL (0.00-0.01); Neutrophils # (A) 6.19 X 10*3/uL (1.80-7.70); Platelet Count 212 X 10*3/uL (140-440); RBC 4.78 X 10*6/uL (4.40-5.60); RDW 17.5 % (11.5-14.5)
[2023-05-18 11:31] LABS: ALT 13 U/L (10-49); AST 22 U/L (14-35); Albumin 3.2 g/dL (3.8-4.9); Alkaline Phosphatase 69 U/L (41-126); BUN/Creat Ratio 18.11 Ratio (12.00-20.00); Blood Urea Nitrogen 16.3 mg/dL (9.0-27.0); Calcium 9.1 mg/dL (8.7-10.3); Carbon Dioxide 28.7 mmol/L (21.6-31.8); Chloride 113 mmol/L (96-109); Globulin 3.2 g/dL (1.6-3.3); Glucose 82 mg/dL (70-110); Potassium 4.4 mmol/L (3.5-5.5); Sodium 156 mmol/L (135-145); Total Bilirubin 0.6 mg/dL (0.3-1.2); Total Protein 6.4 g/dL (6.2-8.2)
--- NOTE | 2023-05-18 12:31 | P.PN ---
Subjective Progress Note Date: 05/18/23 CHIEF COMPLAINT: Drainage from PEG tube HISTORY OF PRESENT ILLNESS: Patient is status post replacement of PEG tube. PEG tube is connected to drainage. There is about 50 mL bilious output. Patient reports his pain is tolerable. Afebrile. WBC is 8.6 hgb 14.2 status post paracentesis with 3.5L removed PHYSICAL EXAM: VITAL SIGNS: Reviewed. GENERAL: no acute distress. ABDOMEN: Soft. Nondistended. peg tube with bilious output. Erythema noted around the PEG tube site. Dressing around PEG tube site does have a serous/bilious drainage. NEUROLOGIC: Awake and alert ASSESSMENT: 1. Bilious drainage from PEG tube with skin irritation around PEG tube 2. History of esophageal cancer PLAN: -Keep PEG tube to drainage -Continue supportive care -Continue the Triad cream around peg tube Physician Webmethods Consultant note has been reviewed by physician. Signing provider agrees with the documented findings, assessment, and plan of care. Objective - Vital Signs Vital signs: Vital Signs Temp 97.0 F L 05/18/23 07:40 Pulse 78 05/18/23 09:45 Resp 16 05/18/23 09:45 BP 128/78 05/18/23 09:45 Pulse Ox 96 05/18/23 09:45 FiO2 Intake & Output 05/17/23 05/18/23 05/18/23 18:59 06:59 18:59 Intake Total 100 1000 Output Total 200 400 300 Balance -100 600 -300 Weight 79.379 kg Intake: IV 100 Intake, IV Titration 1000 Amount Piperacillin-Tazobactam 3 100 .375 gm In Sodium Chloride 0.9% 100 ml @ 25 mls/hr IVPB Q8HR [facility] Rx# :[id number] Sodium Chloride 0.9% 1, 900 000 ml @ 75 mls/hr IV . [id number] [facility] Rx#:[id number] Output: Urine 200 400 300 Other: Voiding Method Toilet Urinal - Labs CBC & Chem 7: 05/18/23 06:25 05/18/23 06:25 Labs: Abnormal Lab Results - Last 24 Hours (Table) 05/17/23 05/18/23 05/18/23 Range/Units 15:47 06:25 06:25 MCV 98.7 H (80.0-97.0) FL MCHC 30.1 L (32.0-37.0) g/dL RDW 17.5 H (11.5-14.5) % MPV 13.3 H (9.5-12.2) FL PT 13.7 H (10.0-12.5) sec INR 1.3 H (<1.2) Sodium 156 H (135-145) mmol/L Chloride 113 H (96-109) mmol/L Anion Gap 14.30 H (4.00-12.00) mmol/L Albumin 3.2 L (3.8-4.9) g/dL Albumin/Globulin Ratio 1.00 L (1.60-3.17) Ratio Microbiology - Last 24 Hours (Table) 05/16/23 23:39 Gram Stain - Preliminary Abdomen Wound Culture - Preliminary Presumptive Staph aureus Yeast species 05/15/23 13:36 Blood Culture - Preliminary Blood
--- NOTE | 2023-05-18 14:44 | P.DS ---
Providers Date of admission: 05/17/23 14:06 Expected date of discharge: 05/18/23 Attending physician: Gianna Nye Consults: 05/15/23 20:15 Consult Physician Routine Consulting Provider: Ronny Sadler Consult Reason/Comments: Abdominal wall cellulitis near peg Do you want consulting provider notified?: Yes 05/16/23 12:07 Consult Physician Routine Consulting Provider: Jayesh Marques Consult Reason/Comments: Peg site infection Do you want consulting provider notified?: Yes Primary care physician: Riley Quinn Hospital Course: Final diagnosis Acute abdominal wall cellulitis around the PEG tube site and possibly PEG tube malposition underwent placement in April, presumptive staph aureus growing in the cultures Severe abdominal pain Ascites status post palliative paracentesis of 3.9 L removed esophageal cancer with liver metastasis with ascites and possibly colonic involvement Former smoker GI prophylaxis No code Discharge disposition Patient is being discharged in a stable condition with guarded and poor prognosis to [facility]. Patient will follow-up with Dr. Temple in the outpatient setting at [facility] upon discharge. Patient is to continue with PEG tube to drainage and pain management as well as oral Keflex 500 mg 3 times daily for 10 days. Total time taken is greater than 35 minutes. Hospital course This is a 67-year-old male who was recently admitted with abdominal pain with concerns of abdominal wall cellulitis and cultures preliminary showing presumptive staph with infectious disease following. Patient was maintained on IV antibiotics and will continue oral Keflex and follow-up on finalized cultures. Continue Keflex for now and may need to transition to doxycycline of which when cultures are finalized a prescription will be called into [facility]. Per general surgery patient is to continue with PEG tube to drainage and recommends no tube feedings. Patient wanted to return to [facility] on pain management and recommend discussing with physician at [facility] regarding increasing and adjusting pain medications. Patient with overall distended abdomen was evaluated by interventional radiology today and underwent palliative paracentesis of approximately 3.5 L removed. Patient reports to feeling somewhat improved and would like to be discharged today. Please refer to the consultation notes for further HPI. Currently no reports of chest pain, shortness of breath, or palpitations. Patient is afebrile. No reports of nausea or vomiting and patient is tolerating diet. Patient will be going to [facility] today. Overall extremely poor and guarded prognosis. Physical exam: Gen: This is a 67-year-old male who is awake, alert and oriented 3, thin built, elderly appearing HEENT: Head is atraumatic, normocephalic. Pupils equal, round. Sclerae is anicteric. NECK: Supple. No JVD. No lymphadenopathy. No thyromegaly. LUNGS: Clear to auscultation. No wheezes or rhonchi. No intercostal retractions. HEART: Regular rate and rhythm. No murmur. ABDOMEN: Soft. Distended. Bowel sounds are present. No masses. No tenderness. EXTREMITIES: No pedal edema. No calf tenderness. NEUROLOGICAL: Patient is awake, alert and oriented x3. Cranial nerves 2 through 12 are grossly intact. Diffusely weak Please refer to medication reconciliation sheet for a list of medications. The impression and plan of care has been dictated by Esther Nava, Nurse Practitioner as directed. Dr. Popeye MD I have performed a history and examination and MDM of this patient, discussed the same with the dictator, and agree with the dictator's assessment and plan as written ,documented as a scribe. Based on total visit time, I have performed more than 50% of the visit. Patient Condition at Discharge: Fair Plan - Discharge Summary Discharge Rx Participant: No New Discharge Prescriptions: New Cephalexin [Keflex] 500 mg PO Q8HR 10 Days #30 cap Acetaminophen Tab [Tylenol] 650 mg PO Q6HR PRN tab PRN Reason: Mild Pain Or Fever > 100.5 Zinc Oxide 20% Oint 1 applic TOPICAL TID PRN each PRN Reason: Skin Irritation Continue Ondansetron [Zofran] 4 mg PO Q8H PRN PRN Reason: Nausea LORazepam ORAL CONC [Ativan Intensol] 0.5 - 1 mg PO Q4H PRN PRN Reason: Anxiety MORPHINE ORAL DEIRDRE CONC 20mg/mL [Roxanol Oral Soln Conc 20MG/ML] 20 mg PO Q1H PRN PRN Reason: Pain Morphine Sulfate [Morphine Sulfate ER] 60 mg PO Q12H Discontinued Cephalexin [Keflex] 500 mg PO Q6H Discharge Medication List Morphine Sulfate [Morphine Sulfate ER] 60 mg PO Q12H 04/16/23 [History] LORazepam ORAL CONC [Ativan Intensol] 0.5 - 1 mg PO Q4H PRN 05/15/23 [History] MORPHINE ORAL DEIRDRE CONC 20mg/mL [Roxanol Oral Soln Conc 20MG/ML] 20 mg PO Q1H PRN 05/15/23 [History] Ondansetron [Zofran] 4 mg PO Q8H PRN 05/15/23 [History] Acetaminophen Tab [Tylenol] 650 mg PO Q6HR PRN tab 05/18/23 [Rx] Cephalexin [Keflex] 500 mg PO Q8HR 10 Days #30 cap 05/18/23 [Rx] Zinc Oxide 20% Oint 1 applic TOPICAL TID PRN each 05/18/23 [Rx] Follow up Appointment(s)/Referral(s): Hospice,[facility] [Family Provider] - 1 Week Riley Quinn [Primary Care Provider] - 1-2 days Activity/Diet/Wound Care/Special Instructions: Patient is returning to [facility] activity as tolerated pain management to be adjusted by hospice physician patient received palliative paracentesis of 3.5 l today Patient continue on oral Keflex 500 mg 3 times daily for 10 days Discharge Disposition: HOME WITH HOSPICE
--- NOTE | 2023-05-18 16:58 | P.PN ---
Subjective Progress Note Date: 05/17/23 Principal diagnosis: Reason for follow-up is PEG tube site cellulitis Patient is a 67-year-old male with a past medical history significant for esophageal cancer apparently diagnosed in advance of 2022 and this patient did have a PEG tube for feeding and the patient now presenting to the hospital with increasing drainage from the PEG tube site with erythema, patient did have a CT small amount of soft tissue swelling along with fluid and gas along the tube On today's evaluation that is 05/17/2023, the patient denies having any fever or any chills complaining of some discomfort around the tube site and minimal drainage no nausea no vomiting no chest pain shortness of breath or cough Patient did have a white count of 9.9 creatinine 0.62 as of yesterday, abdominal cultures are pending Objective - Vital Signs Vital signs: Vital Signs Temp 98.5 F 05/17/23 19:25 Pulse 83 05/17/23 19:25 Resp 18 05/17/23 19:25 BP 126/80 05/17/23 19:25 Pulse Ox 100 05/17/23 19:25 FiO2 Intake & Output 05/17/23 05/17/23 05/18/23 06:59 18:59 06:59 Intake Total 1000 100 Output Total 200 200 Balance 800 -100 Weight 79.379 kg Intake: IV 100 Intake, IV Titration 1000 Amount Piperacillin-Tazobactam 3 100 .375 gm In Sodium Chloride 0.9% 100 ml @ 25 mls/hr IVPB Q8HR [facility] Rx# :[id number] Sodium Chloride 0.9% 1, 900 000 ml @ 75 mls/hr IV . [id number] [facility] Rx#:[id number] Output: Urine 200 200 Other: Voiding Method Toilet Urinal # Voids 1 - Exam GENERAL DESCRIPTION: An elderly male lying in bed in no distress RESPIRATORY SYSTEM: Unlabored breathing , clear to auscultation anteriorly HEART: S1 S2 regular rate and rhythm , ABDOMEN: Soft , no tenderness, PEG tube site swelling redness slightly decreased EXTREMITIES: No edema feet - Labs CBC & Chem 7: 05/18/23 06:25 05/18/23 06:25 Labs: Abnormal Lab Results - Last 24 Hours (Table) 05/17/23 Range/Units 15:47 PT 13.7 H (10.0-12.5) sec INR 1.3 H (<1.2) Microbiology - Last 24 Hours (Table) 05/16/23 23:39 Gram Stain - Preliminary Abdomen 05/15/23 13:36 Blood Culture - Preliminary Blood Assessment and Plan (1) Abdominal wall cellulitis Status: Acute Code(s): L03.311 - CELLULITIS OF ABDOMINAL WALL SNOMED Code(s): 45777435 Plan: 1patient presented to hospital with abdominal wall swelling redness and drainage around his PEG tube site with significant normality seen on the CT abdominal pelvis questionably related to irritation from the gastric acid and less likely infectious etiology as the patient does not look toxic and is not having any fever 2-local culture has been requested which are currently pending 3-continue with Triad cream around the PEG tube site to the erythematous patch 4Patient to continue Zosyn empirically while waiting for the culture to finalize Dictation was produced using [employer] dictation software. please excuse any grammatical, word or spelling errors. Time with Patient: Less than 30
--- NOTE | 2023-05-18 16:59 | P.PN ---
Subjective Progress Note Date: 05/18/23 Principal diagnosis: Reason for follow-up is PEG tube site cellulitis Patient is a 67-year-old male with a past medical history significant for esophageal cancer apparently diagnosed in advance of 2022 and this patient did have a PEG tube for feeding and the patient now presenting to the hospital with increasing drainage from the PEG tube site with erythema, patient did have a CT small amount of soft tissue swelling along with fluid and gas along the tube, patient did have replacement of his active by general surgery on 05/17/2023 On today's evaluation that is 05/18/2023, the patient continues to be afebrile and is breathing comfortably on room air, and patient denies any shortness of breath, chest pain, no cough or sputum production, patient denies nausea /vomiting /diarrhea and no pain around the PEG tube site Patient did have a white count of 8.60, creatinine 0.9 Objective - Vital Signs Vital signs: Vital Signs Temp 97.0 F L 05/18/23 07:40 Pulse 78 05/18/23 09:45 Resp 16 05/18/23 09:45 BP 128/78 05/18/23 09:45 Pulse Ox 96 05/18/23 09:45 FiO2 Intake & Output 05/17/23 05/18/23 05/18/23 18:59 06:59 18:59 Intake Total 100 1000 Output Total 200 400 300 Balance -100 600 -300 Weight 79.379 kg Intake: IV 100 Intake, IV Titration 1000 Amount Piperacillin-Tazobactam 3 100 .375 gm In Sodium Chloride 0.9% 100 ml @ 25 mls/hr IVPB Q8HR [facility] Rx# :[id number] Sodium Chloride 0.9% 1, 900 000 ml @ 75 mls/hr IV . [id number] [facility] Rx#:[id number] Output: Urine 200 400 300 Other: Voiding Method Toilet Urinal - Exam GENERAL DESCRIPTION: An elderly male lying in bed in no distress RESPIRATORY SYSTEM: Unlabored breathing , clear to auscultation anteriorly HEART: S1 S2 regular rate and rhythm , ABDOMEN: Soft , no tenderness, PEG tube site swelling redness slightly decreased EXTREMITIES: No edema feet - Labs CBC & Chem 7: 05/18/23 06:25 05/18/23 06:25 Labs: Abnormal Lab Results - Last 24 Hours (Table) 05/17/23 05/18/23 05/18/23 Range/Units 15:47 06:25 06:25 MCV 98.7 H (80.0-97.0) FL MCHC 30.1 L (32.0-37.0) g/dL RDW 17.5 H (11.5-14.5) % MPV 13.3 H (9.5-12.2) FL PT 13.7 H (10.0-12.5) sec INR 1.3 H (<1.2) Sodium 156 H (135-145) mmol/L Chloride 113 H (96-109) mmol/L Anion Gap 14.30 H (4.00-12.00) mmol/L Albumin 3.2 L (3.8-4.9) g/dL Albumin/Globulin Ratio 1.00 L (1.60-3.17) Ratio Microbiology - Last 24 Hours (Table) 05/16/23 23:39 Gram Stain - Preliminary Abdomen Wound Culture - Preliminary Presumptive Staph aureus Yeast species 05/15/23 13:36 Blood Culture - Preliminary Blood Assessment and Plan (1) Abdominal wall cellulitis Status: Acute Code(s): L03.311 - CELLULITIS OF ABDOMINAL WALL SNOMED Code(s): 64525422 Plan: 1patient presented to hospital with abdominal wall swelling redness and drainage around his PEG tube site with significant normality seen on the CT abdominal pelvis questionably related to irritation from the gastric acid and less likely infectious etiology as the patient does not look toxic and is not having any fever 2-local culture currently growing staph aureus with sensitivities pending 3-continue with Triad cream around the PEG tube site to the erythematous patch 4Patient apparently has been discharged back to the half-way discussed with the CLOTH STOCK S[employer]TER for admitting team oral Keflex and to follow-up on the cultures if turns out to be MRSA to switch him to doxycycline Dictation was produced using [employer] dictation software. please excuse any grammatical, word or spelling errors. Time with Patient: Less than 30
== END 2023-05-18 12:55 | disposition hospice, inpatient (51) | DRG 394 ==
LOC: EC 14:26 → 5NMEDONC 20:17 → OBSVTOIN 05-17 14:06
PROVIDERS: ADMIT Hospitalist; ATTEND Hospitalist
PROC: 0D20XUZ Change Feeding Device in Upper Intestinal Tract, External Approach (ICD-10-PCS; principal; 2023-05-17 08:45)
PROC: 0W9G3ZZ Drainage of Peritoneal Cavity, Percutaneous Approach (ICD-10-PCS; 2023-05-18)
DX: K94.22 Gastrostomy infection (principal); C15.9 Malignant neoplasm of esophagus, unspecified; L03.311 Cellulitis of abdominal wall; C78.7 Secondary malignant neoplasm of liver and intrahepatic bile duct; R18.8 Other ascites; K94.23 Gastrostomy malfunction; B95.61 Methicillin susceptible Staphylococcus aureus infection as the cause of diseases classified elsewhere; M89.9 Disorder of bone, unspecified; Z66 Do not resuscitate; Z28.310 Unvaccinated for COVID-19; Z11.52 Encounter for screening for COVID-19; Z79.899 Other long term (current) drug therapy; Z87.891 Personal history of nicotine dependence; Z51.5 Encounter for palliative care
CPT/HCPCS: 36415; 43246; 49083; 71046; 74018; 74177; 80053; 83605; 85025; 85610; 87040; 87070; 87075; 87205; 87636; 96361; 96365; 96366; 96375; 96376; 99285